=== PATIENT | female | born 1955 | race Caucasian/White ===

== ENCOUNTER 2017-06-08 23:35 | Emergency (ER) | payer BC, OTHER ==
--- NOTE | 2017-06-09 00:46 | EDM.PDOC ---
ED HPI GENERAL MEDICAL PROBLEM - General Chief Complaint: Laceration Stated Complaint: CUT BACK OF HEAD Time Seen by Provider: 06/09/17 00:25 Source of Information: Reports: Patient, Family History Limitations: Reports: Physical Impairment (Dysarthric speech (normal for the patient)) - History of Present Illness INITIAL COMMENTS - FREE TEXT/NARRATIVE: The patient's family state that the patient has a history of ALS, and just moved into their home today. The patient states that around 23:15, she lost her balance while trying to demonstrate that she was able to crouch down, falling backwards, and striking the back of her head on a table. There was no loss of consciousness, and the patient is otherwise uninjured. The patient does not have a PCP. Posterior Head Pain Score (Numeric/FACES): 5 - Related Data Allergies Allergy/AdvReac Type Severity Reaction Status Date / Time No Known Allergies Allergy Verified 06/08/17 23:51 Home Meds: Home Meds Albuterol [Ventolin HFA] 1 puff .XX Q6H PRN 06/08/17 [History] Baclofen 5 mg PO DAILY PRN 06/08/17 [History] Dilofenac 50 mg PO BID PRN 06/08/17 [History] FLUoxetine HCl [Prozac] 20 mg PO DAILY 06/08/17 [History] Furosemide [Lasix] 20 mg PO DAILY 06/08/17 [History] LORazepam [Ativan] 0.5 mg PO TID PRN 06/08/17 [History] Lactulose 10 gm PO TID 06/08/17 [History] Lisinopril 20 mg PO DAILY 06/08/17 [History] Nadolol [Naldol] 10 mg PO DAILY 06/08/17 [History] Prazosin [Minpress] 1 mg PO DAILY 06/08/17 [History] Simvastatin 40 mg PO DAILY 06/08/17 [History] Spironolactone 50 mg PO DAILY 06/08/17 [History] Xyfaxan 550 mg PO DAILY 06/08/17 [History] Past Medical History HEENT History: Reports: Allergic Rhinitis Cardiovascular History: Reports: Arrhythmia (SVT), High Cholesterol, Hypertension Gastrointestinal History: Reports: Cirrhosis Genitourinary History: Reports: Urinary Incontinence Musculoskeletal History: Reports: Arthritis, Fracture (avulsion fracture left ankle) Neurological History: Reports: Other (See Below) (ALS) Psychiatric History: Reports: Anxiety, Depression Endocrine/Metabolic History: Reports: Diabetes, Type II Oncologic (Cancer) History: Reports: Breast (right) - Past Surgical History HEENT Surgical History: Reports: LASIK (bilateral), Other (See Below) (Left stapedectomy) GI Surgical History: Reports: Cholecystectomy Female Surgical History: Reports: Breast Reconstruction (bilateral), Hysterectomy, Mastectomy (bilateral) Neurological Surgical History: Reports: C-Spine (ACDF), Lumbar Spine (L3-S1 laminectomy) Social & Family History - Family History Family Medical History: Noncontributory - Tobacco Use Smoking Status *Q: Never Smoker Second Hand Smoke Exposure: No - Caffeine Use Caffeine Use: Reports: None - Alcohol Use Alcohol Use History: No - Recreational Drug Use Recreational Drug Use: No - Living Situation & Occupation Living situation: Reports: , with Family Occupation: Unemployed ED ROS GENERAL - Review of Systems Review Of Systems: ROS reveals no pertinent complaints other than HPI. ED EXAM, HEAD INJURY - Physical Exam Exam: See Below Exam Limited By: No Limitations General Appearance: Alert, WD/WN, No Apparent Distress Head: Normocephalic, Scalp Lacerations (Approximately 2.5 cm linear partial- thickness laceration to the posterior scalp. Minimal associated swelling.) Eyes: Bilateral Eye: EOMI, Normal Inspection, PERRL Ears: Normal External Exam, Hearing Grossly Normal Nose: Normal Inspection, No Blood Throat/Mouth: Normal Inspection, Normal Lips, Normal Voice, No Airway Compromise Neck: Non-Tender, Full Range of Motion, Normal Alignment, Normal Inspection Respiratory: No Respiratory Distress, Lungs Clear, Normal Breath Sounds, No Accessory Muscle Use Cardiovascular: Normal Peripheral Pulses, Regular Rate, Rhythm, No Gallop, No JVD, No Murmur, No Rub GI/Abdominal Exam: Normal Bowel Sounds, Soft, Non-Tender, No Organomegaly, No Distention, No Abnormal Bruit, No Mass (Female) Exam: Deferred Rectal (Female) Exam: Deferred Back Exam: Full Range of Motion, Normal Inspection, NT Extremities: Normal Inspection, Normal Range of Motion, No Pedal Edema, Normal Capillary Refill Neurologic: Alert, Oriented x 3 Skin: Normal Color, Warm/Dry Course - Vital Signs Last Recorded V/S: Last Vital Signs Temp 36.2 C 04/15/18 23:45 Pulse 96 06/08/17 23:45 Resp 18 06/08/17 23:45 BP 162/75 H 06/08/17 23:45 Pulse Ox 97 06/08/17 23:45 - Re-Assessments/Exams Free Text/Narrative Re-Assessment/Exam: 06/09/17 00:40 The patient sustained an approximately 2.5 cm partial-thickness laceration to the posterior aspect of her scalp. It does not require haris are suturing, and should heal within a few days. The patient is complaining of a headache, but declined an offer for Tylenol or ibuprofen, as she has them at home. I will refer her to Dr. Smith as a PCP. Departure - Departure Time of Disposition: 00:41 Disposition: Home, Self-Care 01 Condition: Good Clinical Impression: Occipital scalp laceration - Discharge Information Instructions: Laceration Care, Adult Referrals: PCP,None [Primary Care Provider] - La Smith [Physician] - Forms: ED Department Discharge Additional Instructions: You were seen in the emergency room after losing your balance, falling backwards , and striking the back of your head tonight. On examination, you have a partial-thickness laceration to the back of your scalp, that did not require sutures or haris. Keep the wound clean with ordinary shampoo and water. We do not recommend you apply antibiotic ointment. Do not put products in your hair until the wound has completely healed. Be aware that the wound will likely weep some bloody fluid for the next day or two. Take [id number] Tylenol or ibuprofen as needed for discomfort. Follow-up with Dr. Smith as a primary care physician. If any other problems, please do not hesitate to return to the ER.
== END 2017-06-09 01:00 | disposition home or self-care (01) ==
LOC: JD.ED 23:35
DX: S01.01XA Laceration without foreign body of scalp, initial encounter (principal); E78.00 Pure hypercholesterolemia, unspecified; I10 Essential (primary) hypertension; F41.9 Anxiety disorder, unspecified; G12.21 Amyotrophic lateral sclerosis; F32.9 Major depressive disorder, single episode, unspecified; E11.9 Type 2 diabetes mellitus without complications; Z90.49 Acquired absence of other specified parts of digestive tract; Z79.899 Other long term (current) drug therapy; Z98.890 Other specified postprocedural states; W18.39XA Other fall on same level, initial encounter; Y92.009 Unspecified place in unspecified non-institutional (private) residence as the place of occurrence of the external cause
CPT/HCPCS: 99283

== ENCOUNTER 2017-08-29 14:22 | Observation (INO) | payer BC, OTHER ==
[2017-08-29] MEDS ORDERED: Sodium Chloride 0.9% 1,000 ML IV ONE (16:39)
[2017-08-29] MEDS ORDERED: Sodium Chloride 0.9% 10 ML Syringe FLUSH PRN (16:39)
[2017-08-29] MEDS ORDERED: Ketorolac 15 MG/ML SDV IVPUSH ONE (17:17)
--- NOTE | 2017-08-29 18:27 | EDM.PDOC ---
ED HPI GENERAL MEDICAL PROBLEM - General Chief Complaint: General Stated Complaint: SENT FROM [facility] Time Seen by Provider: 08/29/17 18:16 Source of Information: Reports: Patient, Jail Records History Limitations: Reports: No Limitations - History of Present Illness INITIAL COMMENTS - FREE TEXT/NARRATIVE: 61-year-old female arrives from [facility] for an emergent PEG tube placement. Patient has a history of ALS, cirrhosis and diabetes. At [facility] today she was given noon meal and had a significant choking episode. [facility] nursing staff contacted the patient's primary care provider, Dr. Betts, who instructed them to bring her to the ER for emergent PEG tube placement. It sounds like she has been working with Dr. Tyler for This PEG placed. Due to conflicts with his schedule and her not feeling well has not been done as of yet. Patient is denying any current pain or any foreign body sensation. She is having difficulty even managing her secretions. Patient has difficulty speaking it is hard to understand. Patient is a DNR, DNI. - Related Data Allergies Allergy/AdvReac Type Severity Reaction Status Date / Time No Known Allergies Allergy Verified 06/08/17 23:51 Home Meds: Home Meds Albuterol [Ventolin HFA] 1 puff .XX Q6H PRN 06/08/17 [History] Baclofen 5 mg PO DAILY PRN 06/08/17 [History] Dilofenac 50 mg PO BID PRN 06/08/17 [History] FLUoxetine HCl [Prozac] 20 mg PO DAILY 06/08/17 [History] Furosemide [Lasix] 20 mg PO DAILY 06/08/17 [History] LORazepam [Ativan] 0.5 mg PO TID PRN 06/08/17 [History] Lactulose 10 gm PO TID 06/08/17 [History] Lisinopril 20 mg PO DAILY 06/08/17 [History] Nadolol [Naldol] 10 mg PO DAILY 06/08/17 [History] Prazosin [Minpress] 1 mg PO DAILY 06/08/17 [History] Simvastatin 40 mg PO DAILY 06/08/17 [History] Spironolactone 50 mg PO DAILY 06/08/17 [History] Xyfaxan 550 mg PO DAILY 06/08/17 [History] Past Medical History HEENT History: Reports: Allergic Rhinitis Cardiovascular History: Reports: Arrhythmia, High Cholesterol, Hypertension, Other (See Below) Other Cardiovascular History: PSVT Respiratory History: Reports: Asthma, Other (See Below) Other Respiratory History: ALS Gastrointestinal History: Reports: Cirrhosis Genitourinary History: Reports: Urinary Incontinence Musculoskeletal History: Reports: Arthritis, Fracture Other Musculoskeletal History: avulsion fracture left ankle Neurological History: Reports: Other (See Below) Other Neuro History: ALS Psychiatric History: Reports: Anxiety, Depression Endocrine/Metabolic History: Reports: Diabetes, Type II Oncologic (Cancer) History: Reports: Breast - Past Surgical History HEENT Surgical History: Reports: LASIK, Other (See Below) GI Surgical History: Reports: Cholecystectomy Female Surgical History: Reports: Breast Reconstruction, Hysterectomy, Mastectomy Neurological Surgical History: Reports: C-Spine, Lumbar Spine Social & Family History - Family History Family Medical History: Noncontributory - Tobacco Use Smoking Status *Q: Never Smoker - Caffeine Use Caffeine Use: Reports: Tea - Recreational Drug Use Recreational Drug Use: No - Living Situation & Occupation Living situation: Reports: , with Family Occupation: Unemployed ED ROS GENERAL - Review of Systems Review Of Systems: See Below HEENT: Reports: Other (difficulty managing secretions; swallowing difficulties) Respiratory: Denies: Shortness of Breath Cardiovascular: Denies: Chest Pain Musculoskeletal: Reports: Neck Pain (chronic) ED EXAM, GENERAL - Physical Exam Exam: See Below Exam Limited By: No Limitations General Appearance: Alert, WD/WN, No Apparent Distress, Thin Eye Exam: Bilateral Eye: Normal Inspection Ears: Normal External Exam Nose: Normal Inspection Throat/Mouth: Normal Inspection Neck: Normal Inspection Respiratory/Chest: No Respiratory Distress, Lungs Clear, Normal Breath Sounds Cardiovascular: Normal Peripheral Pulses, Regular Rate, Rhythm, No Murmur Neurological: Alert, Normal Cognition Psychiatric: Normal Affect, Normal Mood Skin Exam: Warm, Dry, Normal Color Course - Vital Signs Last Recorded V/S: Last Vital Signs Temp 98.2 F 08/29/17 20:43 Pulse 66 08/29/17 20:43 Resp 20 08/29/17 20:43 BP 91/79 08/29/17 20:43 Pulse Ox 96 08/29/17 20:43 - Orders/Labs/Meds Orders: Active Orders 24 hr Category Date Time Status Chest 1V Frontal [CR] Stat Exams 08/29/17 17:12 Taken Sodium Chloride 0.9% [Saline Flush] Med 08/29/17 16:39 Active 10 ml FLUSH ASDIRECTED PRN Peripheral IV Insertion Adult [OM.PC] Routine Oth 08/29/17 16:39 Ordered Medication Orders Acetaminophen (Tylenol) 650 mg RECTAL Q6H PRN PRN Reason: Pain/Fever Enoxaparin Sodium (Lovenox) 40 mg SUBCUT BEDTIME LOLIS Last Admin: 08/29/17 21:58 Dose: Not Given Hydralazine HCl (Apresoline) 20 mg IVPUSH Q6H PRN PRN Reason: Hypertension Dextrose/Sodium Chloride (Dextrose 5%-Normal Saline) 1,000 mls @ 100 mls/hr IV ASDIRECTED LOLIS Last Admin: 08/29/17 21:55 Dose: 100 mls/hr Lorazepam (Ativan) 0.5 mg IVPUSH Q6H PRN PRN Reason: Anxiety Last Admin: 08/29/17 23:17 Dose: 0.5 mg Metoprolol Tartrate (Lopressor) 5 mg IVPUSH Q6H PRN PRN Reason: heart rate>120 Sodium Chloride (Saline Flush) 10 ml FLUSH ASDIRECTED PRN PRN Reason: Keep Vein Open Last Admin: 08/29/17 17:11 Dose: 10 ml Labs: Laboratory Tests 08/29/17 08/29/17 08/29/17 Range/Units 15:56 17:29 17:29 WBC 5.75 (3.98-10.04) K/mm3 RBC 4.07 (3.98-5.22) M/mm3 Hgb 13.4 (11.2-15.7) gm/L Hct 37.3 (34.1-44.9) % MCV 91.6 (79.4-94.8) fl MCH 32.9 H (25.6-32.2) pg MCHC 35.9 H (32.2-35.5) g/dl RDW Std Deviation 45.9 (36.4-46.3) fL Plt Count 83 L (182-369) K/mm3 MPV 9.2 L (9.4-12.3) fl Neut % (Auto) 65.0 (34.0-71.1) % Lymph % (Auto) 26.3 (19.3-51.7) % [place] % (Auto) 6.4 (4.7-12.5) % Eos % (Auto) 1.9 (0.7-5.8) Baso % (Auto) 0.2 (0.1-1.2) % Neut # (Auto) 3.74 (1.56-6.13) K/mm3 Lymph # (Auto) 1.51 (1.18-3.74) K/mm3 [place] # (Auto) 0.37 H (0.24-0.36) K/mm3 Eos # (Auto) 0.11 (0.04-0.36) K/mm3 Baso # (Auto) 0.01 (0.01-0.08) K/mm3 Manual Slide Review Abnormal smear Sodium 135 L (136-145) mEq/L Potassium 4.3 (3.5-5.1) mEq/L Chloride 101 (98-107) mEq/L Carbon Dioxide 26 (21-32) mEq/L Anion Gap 12.3 (5-15) BUN 20 H (7-18) mg/dL Creatinine 0.7 (0.55-1.02) mg/dL Est Cr Clr Drug Dosing 82.07 mL/min Estimated GFR (MDRD) > 60 (>60) mL/min BUN/Creatinine Ratio 28.6 H (14-18) Glucose 160 H (80-115) mg/dL POC Glucose 176 H (80-115) mg/dL Calcium 9.4 (8.5-10.1) mg/dL Total Bilirubin 2.4 H (0.2-1.0) mg/dL AST 75 H (15-37) U/L ALT 95 H (14-59) U/L Alkaline Phosphatase 156 H (46-116) U/L Total Protein 7.4 (6.4-8.2) g/dl Albumin 3.4 (3.4-5.0) g/dl Globulin 4.0 gm/dL Albumin/Globulin Ratio 0.9 L (1-2) 08/29/17 Range/Units 18:37 WBC (3.98-10.04) K/mm3 RBC (3.98-5.22) M/mm3 Hgb (11.2-15.7) gm/L Hct (34.1-44.9) % MCV (79.4-94.8) fl MCH (25.6-32.2) pg MCHC (32.2-35.5) g/dl RDW Std Deviation (36.4-46.3) fL Plt Count (182-369) K/mm3 MPV (9.4-12.3) fl Neut % (Auto) (34.0-71.1) % Lymph % (Auto) (19.3-51.7) % [place] % (Auto) (4.7-12.5) % Eos % (Auto) (0.7-5.8) Baso % (Auto) (0.1-1.2) % Neut # (Auto) (1.56-6.13) K/mm3 Lymph # (Auto) (1.18-3.74) K/mm3 [place] # (Auto) (0.24-0.36) K/mm3 Eos # (Auto) (0.04-0.36) K/mm3 Baso # (Auto) (0.01-0.08) K/mm3 Manual Slide Review Sodium (136-145) mEq/L Potassium (3.5-5.1) mEq/L Chloride (98-107) mEq/L Carbon Dioxide (21-32) mEq/L Anion Gap (5-15) BUN (7-18) mg/dL Creatinine (0.55-1.02) mg/dL Est Cr Clr Drug Dosing mL/min Estimated GFR (MDRD) (>60) mL/min BUN/Creatinine Ratio (14-18) Glucose (80-115) mg/dL POC Glucose 163 H (80-115) mg/dL Calcium (8.5-10.1) mg/dL Total Bilirubin (0.2-1.0) mg/dL AST (15-37) U/L ALT (14-59) U/L Alkaline Phosphatase (46-116) U/L Total Protein (6.4-8.2) g/dl Albumin (3.4-5.0) g/dl Globulin gm/dL Albumin/Globulin Ratio (1-2) Meds: Medications Generic Name Dose Route Start Last Admin Trade Name Freq PRN Reason Stop Dose Admin Acetaminophen 650 mg 08/29/17 21:16 Tylenol RECTAL Q6H PRN Pain/Fever Enoxaparin Sodium 40 mg 08/29/17 21:30 08/29/17 21:58 Lovenox SUBCUT Not Given BEDTIME LOLIS Hydralazine HCl 20 mg 08/29/17 21:14 Apresoline IVPUSH Q6H PRN Hypertension Dextrose/Sodium Chloride 1,000 mls @ 100 mls/hr 08/29/17 21:15 08/29/17 21:55 Dextrose 5%-Normal Saline IV 100 mls/hr ASDIRECTED LOLIS Administration Lorazepam 0.5 mg 08/29/17 22:43 08/29/17 23:17 Ativan IVPUSH 0.5 mg Q6H PRN Administration Anxiety Metoprolol Tartrate 5 mg 08/29/17 21:11 Lopressor IVPUSH Q6H PRN heart rate>120 Sodium Chloride 10 ml 08/29/17 16:39 08/29/17 17:11 Saline Flush FLUSH 10 ml ASDIRECTED PRN Administration Keep Vein Open Discontinued Medications Generic Name Dose Route Start Last Admin Trade Name Freq PRN Reason Stop Dose Admin Sodium Chloride 1,000 mls @ 100 mls/hr 08/29/17 16:39 08/29/17 17:11 Normal Saline IV 08/30/17 02:38 100 mls/hr ONETIME ONE Administration Ketorolac Tromethamine 15 mg 08/29/17 17:17 08/29/17 17:22 Toradol IVPUSH 08/29/17 17:18 15 mg ONETIME ONE Administration - Radiology Interpretation Free Text/Narrative:: chest xray shows no acute intrathrocic process - Re-Assessments/Exams Free Text/Narrative Re-Assessment/Exam: 08/29/17 19:[address] Tyler. He does not appear to be in. Case discussed with Dr. Garcia, surgeon division chair. He prefer that we admitted to the hospitalist. When she is stabilized will potentially put in a PEG tube pending pre-op. Patient's daughter and power of county attorney has presented to the ER. Both Jessica and her daughter would like to proceed with PEG tube placement. case discussed with Dr. Figueroa, hospitalist on. She has comes in the patient in the ED and evaluated her. Will admit her to [facility]. Departure - Departure Time of Disposition: 19:55 Disposition: Refer to Observation Condition: Fair Clinical Impression: ALS (amyotrophic lateral sclerosis), Swallowing dysfunction - Discharge Information - My Orders Last 24 Hours: My Active Orders 08/29/17 16:39 Sodium Chloride 0.9% [Saline Flush] 10 ml FLUSH ASDIRECTED PRN Peripheral IV Insertion Adult [OM.PC] Routine 08/29/17 17:12 Chest 1V Frontal [CR] Stat - Assessment/Plan Last 24 Hours: My Active Orders 08/29/17 16:39 Sodium Chloride 0.9% [Saline Flush] 10 ml FLUSH ASDIRECTED PRN Peripheral IV Insertion Adult [OM.PC] Routine 08/29/17 17:12 Chest 1V Frontal [CR] Stat
--- NOTE | 2017-08-29 21:02 | PCM.HP ---
H&P History of Present Illness - General Date of Service: 08/29/17 Admit Problem/Dx: Admission Diagnosis/Problem Admission Diagnosis/Problem Swallowing problem Source of Information: Family, Provider History Limitations: Reports: No Limitations - History of Present Illness Initial Comments - Free Text/Narative: 61 year old female with PMH of ALS presents with progressive dysphagia; the patient had difficulty eating her lunch on the day of admission. The choking spell precipitated a request for an "emergent PEG". However this is a planned procedure, and in fact an out patient assessment and future date was discussed with a general surgeon. However that was 2 weeks ago, unfortunately the procedure was not performed. The patient can no longer eat or drink with confidence. She is a DNR, not a DNI. The procedure will be arranged as appropriate. She will be admitted to [facility] floor. A swallow evaluation formally will be requested. She currently is NPO. Onset of Symptoms: Reports: Gradual Symptom Onset Date: 08/08/17 Duration of Symptoms: Reports: Week(s):, Getting Worse Location: Reports: Generalized Quality: Reports: Same as Previous Episode Severity: Moderate Improves with: Reports: None Worsens with: Reports: Eating Associated Symptoms: Reports: Cough, Malaise, Nausea/Vomiting, Weakness - Related Data Allergies/Adverse Reactions: Allergies Allergy/AdvReac Type Severity Reaction Status Date / Time No Known Allergies Allergy Verified 08/30/17 01:25 Home Medications: Home Meds Albuterol [Ventolin HFA] 90 mcg INH QID PRN 06/08/17 [History] Baclofen 10 mg PO TID PRN 06/08/17 [History] Dilofenac 50 mg PO BID PRN 06/08/17 [History] Furosemide [Lasix] 20 mg PO DAILY 06/08/17 [History] Lactulose 30 ml PO DAILY 06/08/17 [History] Lisinopril 20 mg PO DAILY 06/08/17 [History] Nadolol [Naldol] 10 mg PO DAILY 06/08/17 [History] Spironolactone 50 mg PO DAILY 06/08/17 [History] Hyoscyamine Sulfate [Levsin-Sl] 0.125 mg PO Q4H PRN 08/30/17 [History] Insulin Aspart [NovoLOG] See Protocol TID PRN 08/30/17 [History] Insulin Glarg,Human.Rec.Analog [Lantus Solostar] 10 units SQ TID 08/30/17 [ History] Insulin Glargine,Hum.Rec.Anlog [Lantus Solostar] 30 units SQ BID 08/30/17 [ History] Ondansetron HCl [Zofran] 4 mg PO Q6H PRN 08/30/17 [History] Past Medical History HEENT History: Reports: Allergic Rhinitis Cardiovascular History: Reports: Arrhythmia, High Cholesterol, Hypertension, Other (See Below) Other Cardiovascular History: PSVT Respiratory History: Reports: Asthma, Other (See Below) Other Respiratory History: ALS Gastrointestinal History: Reports: Cirrhosis Genitourinary History: Reports: Urinary Incontinence Musculoskeletal History: Reports: Arthritis, Fracture Other Musculoskeletal History: avulsion fracture left ankle Neurological History: Reports: Other (See Below) Other Neuro History: ALS Psychiatric History: Reports: Anxiety, Depression Endocrine/Metabolic History: Reports: Diabetes, Type II Oncologic (Cancer) History: Reports: Breast - Past Surgical History HEENT Surgical History: Reports: LASIK, Other (See Below) GI Surgical History: Reports: Cholecystectomy Female Surgical History: Reports: Breast Reconstruction, Hysterectomy, Mastectomy Neurological Surgical History: Reports: C-Spine, Lumbar Spine Social & Family History - Family History Family Medical History: Noncontributory - Tobacco Use Smoking Status *Q: Never Smoker - Caffeine Use Caffeine Use: Reports: Tea - Recreational Drug Use Recreational Drug Use: No - Living Situation & Occupation Living situation: Reports: , with Family Occupation: Unemployed H&P Review of Systems - Review of Systems: Review Of Systems: See Below General: Reports: Malaise, Weakness HEENT: Reports: No Symptoms Pulmonary: Reports: No Symptoms Cardiovascular: Reports: No Symptoms Gastrointestinal: Reports: Other (dysphagia) Genitourinary: Reports: No Symptoms Musculoskeletal: Reports: No Symptoms Skin: Reports: No Symptoms Psychiatric: Reports: No Symptoms Neurological: Reports: No Symptoms Hematologic/Lymphatic: Reports: No Symptoms Immunologic: Reports: No Symptoms Exam - Exam Exam: See Below - Vital Signs Vital Signs: Last Vital Signs Temp 37.1 C 08/29/17 14:38 Pulse 81 08/29/17 14:38 Resp 20 08/29/17 14:38 BP 111/49 L 08/29/17 14:38 Pulse Ox 94 L 08/29/17 14:38 Weight: 67.585 kg - Exam Quality Assessment: Supplemental Oxygen, DVT Prophylaxis (refused) General: Alert, Oriented, Cooperative HEENT: Conjunctiva Clear, Nares Patent, Normal Nasal Septum, Pupils Equal, Pupils Reactive, PERRLA Neck: Trachea Midline Lungs: Normal Respiratory Effort, Decreased Breath Sounds, Rhonchi Cardiovascular: Regular Rate, Regular Rhythm GI/Abdominal Exam: Normal Bowel Sounds, Soft, Non-Tender, No Organomegaly, No Distention (Female) Exam: Deferred Rectal (Female) Exam: Deferred Back Exam: Normal Inspection Extremities: Normal Inspection, Normal Range of Motion, Non-Tender, Normal Capillary Refill Skin: Warm Neurological: Cranial Nerves Intact Neuro Extensive - Mental Status: Alert, Oriented x3 Neuro Extensive - Motor, Sensory, Reflexes: CN II-XII Intact Psychiatric: Alert, Depressed - Patient Data Lab Results Last 24 hrs: Laboratory Results - last 24 hr 08/29/17 08/29/17 08/29/17 Range/Units 15:56 17:29 17:29 WBC 5.75 (3.98-10.04) K/mm3 RBC 4.07 (3.98-5.22) M/mm3 Hgb 13.4 (11.2-15.7) gm/L Hct 37.3 (34.1-44.9) % MCV 91.6 (79.4-94.8) fl MCH 32.9 H (25.6-32.2) pg MCHC 35.9 H (32.2-35.5) g/dl RDW Std Deviation 45.9 (36.4-46.3) fL Plt Count 83 L (182-369) K/mm3 MPV 9.2 L (9.4-12.3) fl Neut % (Auto) 65.0 (34.0-71.1) % Lymph % (Auto) 26.3 (19.3-51.7) % [place] % (Auto) 6.4 (4.7-12.5) % Eos % (Auto) 1.9 (0.7-5.8) Baso % (Auto) 0.2 (0.1-1.2) % Neut # (Auto) 3.74 (1.56-6.13) K/mm3 Lymph # (Auto) 1.51 (1.18-3.74) K/mm3 [place] # (Auto) 0.37 H (0.24-0.36) K/mm3 Eos # (Auto) 0.11 (0.04-0.36) K/mm3 Baso # (Auto) 0.01 (0.01-0.08) K/mm3 Manual Slide Review Abnormal smear Sodium 135 L (136-145) mEq/L Potassium 4.3 (3.5-5.1) mEq/L Chloride 101 (98-107) mEq/L Carbon Dioxide 26 (21-32) mEq/L Anion Gap 12.3 (5-15) BUN 20 H (7-18) mg/dL Creatinine 0.7 (0.55-1.02) mg/dL Est Cr Clr Drug Dosing 82.07 mL/min Estimated GFR (MDRD) > 60 (>60) mL/min BUN/Creatinine Ratio 28.6 H (14-18) Glucose 160 H (80-115) mg/dL POC Glucose 176 H (80-115) mg/dL Calcium 9.4 (8.5-10.1) mg/dL Total Bilirubin 2.4 H (0.2-1.0) mg/dL AST 75 H (15-37) U/L ALT 95 H (14-59) U/L Alkaline Phosphatase 156 H (46-116) U/L Total Protein 7.4 (6.4-8.2) g/dl Albumin 3.4 (3.4-5.0) g/dl Globulin 4.0 gm/dL Albumin/Globulin Ratio 0.9 L (1-2) 08/29/17 Range/Units 18:37 WBC (3.98-10.04) K/mm3 RBC (3.98-5.22) M/mm3 Hgb (11.2-15.7) gm/L Hct (34.1-44.9) % MCV (79.4-94.8) fl MCH (25.6-32.2) pg MCHC (32.2-35.5) g/dl RDW Std Deviation (36.4-46.3) fL Plt Count (182-369) K/mm3 MPV (9.4-12.3) fl Neut % (Auto) (34.0-71.1) % Lymph % (Auto) (19.3-51.7) % [place] % (Auto) (4.7-12.5) % Eos % (Auto) (0.7-5.8) Baso % (Auto) (0.1-1.2) % Neut # (Auto) (1.56-6.13) K/mm3 Lymph # (Auto) (1.18-3.74) K/mm3 [place] # (Auto) (0.24-0.36) K/mm3 Eos # (Auto) (0.04-0.36) K/mm3 Baso # (Auto) (0.01-0.08) K/mm3 Manual Slide Review Sodium (136-145) mEq/L Potassium (3.5-5.1) mEq/L Chloride (98-107) mEq/L Carbon Dioxide (21-32) mEq/L Anion Gap (5-15) BUN (7-18) mg/dL Creatinine (0.55-1.02) mg/dL Est Cr Clr Drug Dosing mL/min Estimated GFR (MDRD) (>60) mL/min BUN/Creatinine Ratio (14-18) Glucose (80-115) mg/dL POC Glucose 163 H (80-115) mg/dL Calcium (8.5-10.1) mg/dL Total Bilirubin (0.2-1.0) mg/dL AST (15-37) U/L ALT (14-59) U/L Alkaline Phosphatase (46-116) U/L Total Protein (6.4-8.2) g/dl Albumin (3.4-5.0) g/dl Globulin gm/dL Albumin/Globulin Ratio (1-2) Result Diagrams: 08/30/17 06:20 08/30/17 06:20 - Problem List (1) Diabetes mellitus SNOMED Code(s): 22326846 ICD Code: E11.9 - TYPE 2 DIABETES MELLITUS WITHOUT COMPLICATIONS Status: Chronic Current Visit: Yes Qualifiers: Diabetes mellitus type: type 2 (2) Depression SNOMED Code(s): 94362162 ICD Code: F32.9 - MAJOR DEPRESSIVE DISORDER, SINGLE EPISODE, UNSPECIFIED Status: Chronic Current Visit: Yes (3) Hypertension SNOMED Code(s): 00998669 ICD Code: I10 - ESSENTIAL (PRIMARY) HYPERTENSION Status: Chronic Current Visit: Yes (4) Hyperlipidemia SNOMED Code(s): 47517526 ICD Code: E78.5 - HYPERLIPIDEMIA, UNSPECIFIED Status: Chronic Current Visit: Yes (5) Cirrhosis SNOMED Code(s): 50667800 ICD Code: K74.60 - UNSPECIFIED CIRRHOSIS OF LIVER Status: Chronic Current Visit: Yes (6) Anxiety SNOMED Code(s): 74194512 ICD Code: F41.9 - ANXIETY DISORDER, UNSPECIFIED Status: Chronic Current Visit: Yes (7) ALS (amyotrophic lateral sclerosis) SNOMED Code(s): 80586058 ICD Code: G12.21 - AMYOTROPHIC LATERAL SCLEROSIS Status: Chronic Current Visit: Yes (8) Swallowing dysfunction SNOMED Code(s): 562425518 ICD Code: R13.10 - DYSPHAGIA, UNSPECIFIED Status: Acute Current Visit: Yes Problem List Initiated/Reviewed/Updated: Yes Orders Last 24hrs: Active Orders 24 hr Category Date Time Status Patient Status [ADT] Routine ADT 08/29/17 19:58 Active Peripheral IV Care [RC] . DIRECTED Care 08/29/17 16:39 Active Chest 1V Frontal [CR] Stat Exams 08/29/17 17:12 Taken Sodium Chloride 0.9% [Normal Saline] 1,000 ml Med 08/29/17 16:39 Active IV ONETIME Sodium Chloride 0.9% [Saline Flush] Med 08/29/17 16:39 Active 10 ml FLUSH ASDIRECTED PRN Peripheral IV Insertion Adult [OM.PC] Routine Oth 08/29/17 16:39 Ordered Medication Orders Sodium Chloride (Normal Saline) 1,000 mls @ 100 mls/hr IV ONETIME ONE Stop: 08/30/17 02:38 Last Admin: 08/29/17 17:11 Dose: 100 mls/hr Sodium Chloride (Saline Flush) 10 ml FLUSH ASDIRECTED PRN PRN Reason: Keep Vein Open Last Admin: 08/29/17 17:11 Dose: 10 ml Assessment/Plan Comment:: Impression: History of ALS with progressive dysphagia Query LLL infiltrate on CXR 08/30/2017, empiric levoquin started Malnutrition with failure to thrive Chronic Diabetes mellitus type 1 HTN HLD History of cirrhosis Anxiety/depression Plan: Gen Surg consult re: PEG, TBA IVF Pain meds Home meds BS q 6H when NPO Swallow evaluation re: dysphagia Dietary consult re: calorie count DVT/GI prophylaxis Consult PT/OT as tolerated.
[2017-08-29] MEDS ORDERED: Metoprolol Tartrate 5 MG/5 ML SDV IVPUSH PRN (21:11)
[2017-08-29] MEDS ORDERED: hydrALAZINE 20 MG/ML SDV IVPUSH PRN (21:14)
[2017-08-29] MEDS ORDERED: Acetaminophen 650 MG Supp RECTAL PRN (21:16)
[2017-08-29] MEDS: Dextrose 5%-0.9% NaCl 1,000 ML IV SCH (21:55)
[2017-08-29] MEDS: Enoxaparin 40 MG/0.4 ML Syringe SUBCUT SCH (21:58)
[2017-08-29] MEDS: LORazepam 2 MG/ML SDV IVPUSH PRN (23:17)
[2017-08-30] MEDS: Dextrose 5%-0.9% NaCl 1,000 ML IV SCH ×2 (08:10→17:49)
--- NOTE | 2017-08-30 09:53 | PCM.CONS ---
H&P History of Present Illness - General Date of Service: 08/30/17 Admit Problem/Dx: Admission Diagnosis/Problem Admission Diagnosis/Problem Swallowing problem Source of Information: Patient, Provider, RN History Limitations: Reports: No Limitations (Inability to speak but patient can communicate by writing) - History of Present Illness Initial Comments - Free Text/Narative: 61-year-old female with ALS presents with a history of progressive oropharyngeal dysphagia. She is unable to eat solids. And over the past several week she's found it difficult to even eat pured foods. While eating, half of the food bolus refluxes into her nose and at times she aspirates. She was seen by a surgeon in [facility] 2 weeks ago who agreed to place a PEG tube after return from his vacation. Unfortunately she has progressed to the point where she is unable to eat or drink just about anything except for small amounts of apple sauce mixed with cottage cheese. She presented to the emergency room yesterday with severe symptomatic protein calorie malnutrition for feeding tube placement. Her swallowing evaluation performed this morning confirms the oropharyngeal dysphagia. She has eaten some applesauce and pudding throughout the morning. - Related Data Allergies/Adverse Reactions: Allergies Allergy/AdvReac Type Severity Reaction Status Date / Time No Known Allergies Allergy Verified 08/30/17 01:25 Home Medications: Home Meds Albuterol [Ventolin HFA] 90 mcg INH QID PRN 06/08/17 [History] Baclofen 10 mg PO TID PRN 06/08/17 [History] Dilofenac 50 mg PO BID PRN 06/08/17 [History] Furosemide [Lasix] 20 mg PO DAILY 06/08/17 [History] Lactulose 30 ml PO DAILY 06/08/17 [History] Lisinopril 20 mg PO DAILY 06/08/17 [History] Nadolol [Naldol] 10 mg PO DAILY 06/08/17 [History] Spironolactone 50 mg PO DAILY 06/08/17 [History] Hyoscyamine Sulfate [Levsin-Sl] 0.125 mg PO Q4H PRN 08/30/17 [History] Insulin Aspart [NovoLOG] See Protocol TID PRN 08/30/17 [History] Insulin Glarg,Human.Rec.Analog [Lantus Solostar] 10 units SQ TID 08/30/17 [ History] Insulin Glargine,Hum.Rec.Anlog [Lantus Solostar] 30 units SQ BID 08/30/17 [ History] Ondansetron HCl [Zofran] 4 mg PO Q6H PRN 08/30/17 [History] Past Medical History HEENT History: Reports: Allergic Rhinitis Cardiovascular History: Reports: Arrhythmia, High Cholesterol, Hypertension, Other (See Below) Other Cardiovascular History: PSVT Respiratory History: Reports: Asthma, Other (See Below) Other Respiratory History: ALS Gastrointestinal History: Reports: Cirrhosis Genitourinary History: Reports: Urinary Incontinence [employer] History: Reports: Musculoskeletal History: Reports: Arthritis, Fracture Other Musculoskeletal History: avulsion fracture left ankle Neurological History: Reports: Other (See Below) Other Neuro History: ALS Psychiatric History: Reports: Anxiety, Depression Endocrine/Metabolic History: Reports: Diabetes, Type II Oncologic (Cancer) History: Reports: Breast - Infectious Disease History Infectious Disease History: Reports: Chicken Pox, Influenza, Measles - Past Surgical History HEENT Surgical History: Reports: LASIK, Other (See Below) GI Surgical History: Reports: Cholecystectomy Female Surgical History: Reports: Breast Reconstruction, Hysterectomy, Mastectomy Neurological Surgical History: Reports: C-Spine, Lumbar Spine Social & Family History - Family History Family Medical History: Noncontributory - Tobacco Use Smoking Status *Q: Never Smoker Second Hand Smoke Exposure: No - Caffeine Use Caffeine Use: Reports: Tea Other Caffeine Use: pt reports that she used to drink one cup of coffee/day but now is not going to be able to she reports - Recreational Drug Use Recreational Drug Use: No - Living Situation & Occupation Living situation: Reports: , with Family Occupation: Unemployed H&P Review of Systems - Review of Systems: Review Of Systems: ROS reveals no pertinent complaints other than HPI. Exam - Exam Exam: See Below - Vital Signs Vital Signs: Last Vital Signs Temp 36.7 C 08/30/17 07:55 Pulse 62 08/30/17 07:55 Resp 16 08/30/17 07:55 BP 91/33 L 08/30/17 08:12 Pulse Ox 96 08/30/17 07:55 Weight: 66.281 kg - Exam General: Alert, Oriented, Cooperative HEENT: EOMI, Hearing Intact Neck: Supple, Trachea Midline Lungs: Clear to Auscultation, Normal Respiratory Effort Cardiovascular: Regular Rate, Regular Rhythm, Normal S1, Normal S2 GI/Abdominal Exam: Soft, Non-Tender, Hepatomegaly, Other (Well-healed abdominoplasty incision) (Female) Exam: Deferred Rectal (Female) Exam: Deferred Extremities: Non-Tender Skin: Warm, Dry Neuro Extensive - Mental Status: Alert, Normal Mood/Affect, Normal Cognition - Patient Data Lab Results Last 24 hrs: Laboratory Results - last 24 hr 08/29/17 08/29/17 08/29/17 Range/Units 15:56 17:29 17:29 WBC 5.75 (3.98-10.04) K/mm3 RBC 4.07 (3.98-5.22) M/mm3 Hgb 13.4 (11.2-15.7) gm/L Hct 37.3 (34.1-44.9) % MCV 91.6 (79.4-94.8) fl MCH 32.9 H (25.6-32.2) pg MCHC 35.9 H (32.2-35.5) g/dl RDW Std Deviation 45.9 (36.4-46.3) fL Plt Count 83 L (182-369) K/mm3 MPV 9.2 L (9.4-12.3) fl Neut % (Auto) 65.0 (34.0-71.1) % Lymph % (Auto) 26.3 (19.3-51.7) % [place] % (Auto) 6.4 (4.7-12.5) % Eos % (Auto) 1.9 (0.7-5.8) Baso % (Auto) 0.2 (0.1-1.2) % Neut # (Auto) 3.74 (1.56-6.13) K/mm3 Lymph # (Auto) 1.51 (1.18-3.74) K/mm3 [place] # (Auto) 0.37 H (0.24-0.36) K/mm3 Eos # (Auto) 0.11 (0.04-0.36) K/mm3 Baso # (Auto) 0.01 (0.01-0.08) K/mm3 Manual Slide Review Abnormal smear PT (9.5-12.1) SECONDS INR APTT (24-31) SECONDS Sodium 135 L (136-145) mEq/L Potassium 4.3 (3.5-5.1) mEq/L Chloride 101 (98-107) mEq/L Carbon Dioxide 26 (21-32) mEq/L Anion Gap 12.3 (5-15) BUN 20 H (7-18) mg/dL Creatinine 0.7 (0.55-1.02) mg/dL Est Cr Clr Drug Dosing 82.07 mL/min Estimated GFR (MDRD) > 60 (>60) mL/min BUN/Creatinine Ratio 28.6 H (14-18) Glucose 160 H (80-115) mg/dL POC Glucose 176 H (80-115) mg/dL Lactic Acid (0.4-2.0) mmol/L Calcium 9.4 (8.5-10.1) mg/dL Magnesium (1.8-2.4) mg/dl Total Bilirubin 2.4 H (0.2-1.0) mg/dL AST 75 H (15-37) U/L ALT 95 H (14-59) U/L Alkaline Phosphatase 156 H (46-116) U/L C-Reactive Protein (<1.0) mg/dL Total Protein 7.4 (6.4-8.2) g/dl Albumin 3.4 (3.4-5.0) g/dl Globulin 4.0 gm/dL Albumin/Globulin Ratio 0.9 L (1-2) MRSA (PCR) 08/29/17 08/29/17 08/29/17 Range/Units 18:37 20:16 21:50 WBC (3.98-10.04) K/mm3 RBC (3.98-5.22) M/mm3 Hgb (11.2-15.7) gm/L Hct (34.1-44.9) % MCV (79.4-94.8) fl MCH (25.6-32.2) pg MCHC (32.2-35.5) g/dl RDW Std Deviation (36.4-46.3) fL Plt Count (182-369) K/mm3 MPV (9.4-12.3) fl Neut % (Auto) (34.0-71.1) % Lymph % (Auto) (19.3-51.7) % [place] % (Auto) (4.7-12.5) % Eos % (Auto) (0.7-5.8) Baso % (Auto) (0.1-1.2) % Neut # (Auto) (1.56-6.13) K/mm3 Lymph # (Auto) (1.18-3.74) K/mm3 [place] # (Auto) (0.24-0.36) K/mm3 Eos # (Auto) (0.04-0.36) K/mm3 Baso # (Auto) (0.01-0.08) K/mm3 Manual Slide Review PT (9.5-12.1) SECONDS INR APTT (24-31) SECONDS Sodium (136-145) mEq/L Potassium (3.5-5.1) mEq/L Chloride (98-107) mEq/L Carbon Dioxide (21-32) mEq/L Anion Gap (5-15) BUN (7-18) mg/dL Creatinine (0.55-1.02) mg/dL Est Cr Clr Drug Dosing mL/min Estimated GFR (MDRD) (>60) mL/min BUN/Creatinine Ratio (14-18) Glucose (80-115) mg/dL POC Glucose 163 H 148 H 140 H (80-115) mg/dL Lactic Acid (0.4-2.0) mmol/L Calcium (8.5-10.1) mg/dL Magnesium (1.8-2.4) mg/dl Total Bilirubin (0.2-1.0) mg/dL AST (15-37) U/L ALT (14-59) U/L Alkaline Phosphatase (46-116) U/L C-Reactive Protein (<1.0) mg/dL Total Protein (6.4-8.2) g/dl Albumin (3.4-5.0) g/dl Globulin gm/dL Albumin/Globulin Ratio (1-2) MRSA (PCR) 08/30/17 08/30/17 08/30/17 Range/Units 05:50 05:52 06:20 WBC 3.92 L (3.98-10.04) K/mm3 RBC 3.63 L (3.98-5.22) M/mm3 Hgb 11.6 (11.2-15.7) gm/L Hct 33.8 L (34.1-44.9) % MCV 93.1 (79.4-94.8) fl MCH 32.0 (25.6-32.2) pg MCHC 34.3 (32.2-35.5) g/dl RDW Std Deviation 45.8 (36.4-46.3) fL Plt Count 76 L (182-369) K/mm3 MPV 8.9 L (9.4-12.3) fl Neut % (Auto) 45.8 (34.0-71.1) % Lymph % (Auto) 42.9 (19.3-51.7) % [place] % (Auto) 8.4 (4.7-12.5) % Eos % (Auto) 2.6 (0.7-5.8) Baso % (Auto) 0.3 (0.1-1.2) % Neut # (Auto) 1.80 (1.56-6.13) K/mm3 Lymph # (Auto) 1.68 (1.18-3.74) K/mm3 [place] # (Auto) 0.33 (0.24-0.36) K/mm3 Eos # (Auto) 0.10 (0.04-0.36) K/mm3 Baso # (Auto) 0.01 (0.01-0.08) K/mm3 Manual Slide Review Abnormal smear PT (9.5-12.1) SECONDS INR APTT (24-31) SECONDS Sodium (136-145) mEq/L Potassium (3.5-5.1) mEq/L Chloride (98-107) mEq/L Carbon Dioxide (21-32) mEq/L Anion Gap (5-15) BUN (7-18) mg/dL Creatinine (0.55-1.02) mg/dL Est Cr Clr Drug Dosing mL/min Estimated GFR (MDRD) (>60) mL/min BUN/Creatinine Ratio (14-18) Glucose (80-115) mg/dL POC Glucose 183 H (80-115) mg/dL Lactic Acid (0.4-2.0) mmol/L Calcium (8.5-10.1) mg/dL Magnesium (1.8-2.4) mg/dl Total Bilirubin (0.2-1.0) mg/dL AST (15-37) U/L ALT (14-59) U/L Alkaline Phosphatase (46-116) U/L C-Reactive Protein (<1.0) mg/dL Total Protein (6.4-8.2) g/dl Albumin (3.4-5.0) g/dl Globulin gm/dL Albumin/Globulin Ratio (1-2) MRSA (PCR) Negative 08/30/17 08/30/17 08/30/17 Range/Units 06:20 06:20 06:20 WBC (3.98-10.04) K/mm3 RBC (3.98-5.22) M/mm3 Hgb (11.2-15.7) gm/L Hct (34.1-44.9) % MCV (79.4-94.8) fl MCH (25.6-32.2) pg MCHC (32.2-35.5) g/dl RDW Std Deviation (36.4-46.3) fL Plt Count (182-369) K/mm3 MPV (9.4-12.3) fl Neut % (Auto) (34.0-71.1) % Lymph % (Auto) (19.3-51.7) % [place] % (Auto) (4.7-12.5) % Eos % (Auto) (0.7-5.8) Baso % (Auto) (0.1-1.2) % Neut # (Auto) (1.56-6.13) K/mm3 Lymph # (Auto) (1.18-3.74) K/mm3 [place] # (Auto) (0.24-0.36) K/mm3 Eos # (Auto) (0.04-0.36) K/mm3 Baso # (Auto) (0.01-0.08) K/mm3 Manual Slide Review PT 12.8 H (9.5-12.1) SECONDS INR 1.18 APTT 26 (24-31) SECONDS Sodium 141 (136-145) mEq/L Potassium 4.2 (3.5-5.1) mEq/L Chloride 107 (98-107) mEq/L Carbon Dioxide 25 (21-32) mEq/L Anion Gap 13.2 (5-15) BUN 21 H (7-18) mg/dL Creatinine 0.7 (0.55-1.02) mg/dL Est Cr Clr Drug Dosing 82.07 mL/min Estimated GFR (MDRD) > 60 (>60) mL/min BUN/Creatinine Ratio 30.0 H (14-18) Glucose 184 H (80-115) mg/dL POC Glucose (80-115) mg/dL Lactic Acid 1.3 (0.4-2.0) mmol/L Calcium 8.7 (8.5-10.1) mg/dL Magnesium 1.3 L (1.8-2.4) mg/dl Total Bilirubin (0.2-1.0) mg/dL AST (15-37) U/L ALT (14-59) U/L Alkaline Phosphatase (46-116) U/L C-Reactive Protein 0.2 (<1.0) mg/dL Total Protein (6.4-8.2) g/dl Albumin (3.4-5.0) g/dl Globulin gm/dL Albumin/Globulin Ratio (1-2) MRSA (PCR) Result Diagrams: 08/30/17 06:20 08/30/17 06:20 Consult PN Assessment/Plan Procedures: Procedures EMERGENCY DEPT VISIT (06/08/17) (1) Swallowing dysfunction SNOMED Code(s): 714648009 Code(s): R13.10 - DYSPHAGIA, UNSPECIFIED Current Visit: Yes Assessment:: Secondary oropharyngeal dysphagia. Progressive failure to thrive. Would benefit from protein calorie replacement. Problem List Initiated/Reviewed/Updated: Yes My Orders Last 24 Hours: Preoperative evaluation and stabilization by the hospitalist followed by PEG tube placement in the morning.
[2017-08-30] MEDS ORDERED: Magnesium Sulfate/Water 4 GM in Premix Bag 1 BAG IV ONE (11:30)
[2017-08-30] MEDS ORDERED: 50% Dextrose in Water 50 ML Syringe IVPUSH PRN (11:48)
[2017-08-30] MEDS ORDERED: Hyoscyamine 0.125 MG Tab.SL PO PRN (11:49)
[2017-08-30] MEDS ORDERED: Ondansetron 4 MG Tab.DIS PO PRN (12:00)
[2017-08-30] MEDS ORDERED: Albuterol/Ipratropium 3.0-0.5 MG/3 ML Neb Soln NEB PRN (16:09)
--- NOTE | 2017-08-30 16:12 | PCM.PREANE ---
Preanesthetic Assessment - Anesthesia/Transfusion/Family Hx Anesthesia History: Prior Anesthesia Without Reaction Family History of Anesthesia Reaction: No Transfusion History: No Prior Transfusion(s) Intubation History: Unknown - Review of Systems General: No Symptoms (Patient c/o of getting HOT.), Weakness, Fatigue, Malaise Pulmonary: No Symptoms (Asthma) Cardiovascular: No Symptoms (History of PSVT/HTN/ on lasix and diuretics for ascites due to HA.), Palpitations, Lightheadedness Gastrointestinal: No Symptoms (GERD), Decreased Appetite, Difficulty Swallowing Neurological: No Symptoms (History of ALS: with inability to speak but communicates with writing), Headache (Migraine headaches from head injury in 2002), Tingling (All four extremities noted), Trouble Speaking, Difficulty Walking, Weakness, Other (ALS diagnosed Feb 2017, with inability to speak noted , patient communicates by writing.) Other: Reports: Easy Bleeding, Easy Bruising, Diabetes (IDDM), Liver Problems ( Elevated liver enzymes noted, HA with ascites noted), Sinus Problem (Chronic rhinitis), Neck Pain, Depression, Anxiety - Physical Assessment NPO Status Date: 08/30/17 NPO Status Time: 08:00 Pulse: 72 O2 Sat by Pulse Oximetry: 95 Respiratory Rate: 16 Blood Pressure: 107/73 Temperature: 37.2 C Vital Signs: Last Vital Signs Temp 37.2 C 08/30/17 14:31 Pulse 72 08/30/17 14:31 Resp 16 08/30/17 14:31 BP 107/73 08/30/17 14:31 Pulse Ox 95 08/30/17 14:31 Height: 1.7 m Weight: 66.281 kg ASA Class: 3E Mental Status: Alert & Oriented x3 Airway Class: Mallampati = 2 Dentition: Reports: Normal Dentition, Caries Thyro-Mental Finger Breadths: 3 Mouth Opening Finger Breadths: 3 ROM/Head Extension: Full Lungs: Clear to Auscultation, Normal Respiratory Effort, Decreased Breath Sounds (inability to take a maximal deep breath due to ALS) Cardiovascular: Regular Rate, Regular Rhythm, No Murmurs - Lab Values: Laboratory Last Values WBC 3.92 K/mm3 (3.98-10.04) L 08/30/17 06:20 RBC 3.63 M/mm3 (3.98-5.22) L 08/30/17 06:20 Hgb 11.6 gm/L (11.2-15.7) 08/30/17 06:20 Hct 33.8 % (34.1-44.9) L 08/30/17 06:20 MCV 93.1 fl (79.4-94.8) 08/30/17 06:20 MCH 32.0 pg (25.6-32.2) 08/30/17 06:20 MCHC 34.3 g/dl (32.2-35.5) 08/30/17 06:20 RDW Std Deviation 45.8 fL (36.4-46.3) 08/30/17 06:20 Plt Count 76 K/mm3 (182-369) L 08/30/17 06:20 MPV 8.9 fl (9.4-12.3) L 08/30/17 06:20 Neut % (Auto) 45.8 % (34.0-71.1) 08/30/17 06:20 Lymph % (Auto) 42.9 % (19.3-51.7) 08/30/17 06:20 [place] % (Auto) 8.4 % (4.7-12.5) 08/30/17 06:20 Eos % (Auto) 2.6 (0.7-5.8) 08/30/17 06:20 Baso % (Auto) 0.3 % (0.1-1.2) 08/30/17 06:20 Neut # (Auto) 1.80 K/mm3 (1.56-6.13) 08/30/17 06:20 Lymph # (Auto) 1.68 K/mm3 (1.18-3.74) 08/30/17 06:20 [place] # (Auto) 0.33 K/mm3 (0.24-0.36) 08/30/17 06:20 Eos # (Auto) 0.10 K/mm3 (0.04-0.36) 08/30/17 06:20 Baso # (Auto) 0.01 K/mm3 (0.01-0.08) 08/30/17 06:20 Manual Slide Review Abnormal smear 08/30/17 06:20 PT 12.8 SECONDS (9.5-12.1) H 08/30/17 06:20 INR 1.18 08/30/17 06:20 APTT 26 SECONDS (24-31) 08/30/17 06:20 Sodium 141 mEq/L (136-145) 08/30/17 06:20 Potassium 4.2 mEq/L (3.5-5.1) 08/30/17 06:20 Chloride 107 mEq/L (98-107) 08/30/17 06:20 Carbon Dioxide 25 mEq/L (21-32) 08/30/17 06:20 Anion Gap 13.2 (5-15) 08/30/17 06:20 BUN 21 mg/dL (7-18) H 08/30/17 06:20 Creatinine 0.7 mg/dL (0.55-1.02) 08/30/17 06:20 Est Cr Clr Drug Dosing 82.07 mL/min 08/30/17 06:20 Estimated GFR (MDRD) > 60 mL/min (>60) 08/30/17 06:20 BUN/Creatinine Ratio 30.0 (14-18) H 08/30/17 06:20 Glucose 184 mg/dL (80-115) H 08/30/17 06:20 POC Glucose 203 mg/dL (80-115) H 08/30/17 11:33 Lactic Acid 1.3 mmol/L (0.4-2.0) 08/30/17 06:20 Calcium 8.7 mg/dL (8.5-10.1) 08/30/17 06:20 Magnesium 1.3 mg/dl (1.8-2.4) L 08/30/17 06:20 Total Bilirubin 2.4 mg/dL (0.2-1.0) H 08/29/17 17:29 AST 75 U/L (15-37) H 08/29/17 17:29 ALT 95 U/L (14-59) H 08/29/17 17:29 Alkaline Phosphatase 156 U/L (46-116) H 08/29/17 17:29 C-Reactive Protein 0.2 mg/dL (<1.0) 08/30/17 06:20 Total Protein 7.4 g/dl (6.4-8.2) 08/29/17 17:29 Albumin 3.4 g/dl (3.4-5.0) 08/29/17 17:29 Globulin 4.0 gm/dL 08/29/17 17:29 Albumin/Globulin Ratio 0.9 (1-2) L 08/29/17 17:29 MRSA (PCR) Negative 08/30/17 05:50 Above labs reviewed and noted and within acceptable ranges to proceed with PEG TUBE placement. - Allergies Allergies/Adverse Reactions: Allergies Allergy/AdvReac Type Severity Reaction Status Date / Time No Known Allergies Allergy Verified 08/30/17 01:25 - Anesthesia Plan Pre-Op Medication Ordered: None - Acknowledgements Anesthesia Type Planned: MAC Pt an Appropriate Candidate for the Planned Anesthesia: Yes Alternatives and Risks of Anesthesia Discussed w Pt/Guardian: Yes Pt/Guardian Understands and Agrees with Anesthesia Plan: Yes PreAnesthesia Questionnaire HEENT History: Reports: Allergic Rhinitis Cardiovascular History: Reports: Arrhythmia, High Cholesterol, Hypertension, Other (See Below) Other Cardiovascular History: PSVT Respiratory History: Reports: Asthma, Other (See Below) Other Respiratory History: ALS Gastrointestinal History: Reports: Cirrhosis Genitourinary History: Reports: Urinary Incontinence [employer] History: Reports: Musculoskeletal History: Reports: Arthritis, Fracture Other Musculoskeletal History: avulsion fracture left ankle Neurological History: Reports: Other (See Below) Other Neuro History: ALS Psychiatric History: Reports: Anxiety, Depression Endocrine/Metabolic History: Reports: Diabetes, Type II Oncologic (Cancer) History: Reports: Breast - Infectious Disease History Infectious Disease History: Reports: Chicken Pox, Influenza, Measles - Past Surgical History HEENT Surgical History: Reports: LASIK, Other (See Below) GI Surgical History: Reports: Cholecystectomy Female Surgical History: Reports: Breast Reconstruction, Hysterectomy, Mastectomy Neurological Surgical History: Reports: C-Spine, Lumbar Spine - SUBSTANCE USE Smoking Status *Q: Never Smoker Second Hand Smoke Exposure: No Recreational Drug Use History: No - HOME MEDS Home Medications: Home Meds Albuterol [Ventolin HFA] 90 mcg INH QID PRN 06/08/17 [History] Baclofen 10 mg PO TID PRN 06/08/17 [History] Dilofenac 50 mg PO BID PRN 06/08/17 [History] Furosemide [Lasix] 20 mg PO DAILY 06/08/17 [History] Lactulose 30 ml PO DAILY 06/08/17 [History] Lisinopril 20 mg PO DAILY 06/08/17 [History] Nadolol [Naldol] 10 mg PO DAILY 06/08/17 [History] Spironolactone 50 mg PO DAILY 06/08/17 [History] Hyoscyamine Sulfate [Levsin-Sl] 0.125 mg PO Q4H PRN 08/30/17 [History] Insulin Aspart [NovoLOG] See Protocol TID PRN 08/30/17 [History] Insulin Glarg,Human.Rec.Analog [Lantus Solostar] 10 units SQ TID 08/30/17 [ History] Insulin Glargine,Hum.Rec.Anlog [Lantus Solostar] 30 units SQ BID 08/30/17 [ History] Ondansetron HCl [Zofran] 4 mg PO Q6H PRN 08/30/17 [History] - CURRENT (IN HOUSE) MEDS Current Meds: Current Medications Acetaminophen (Tylenol) 650 mg RECTAL Q6H PRN PRN Reason: Pain/Fever Dextrose/Water (Dextrose 50% In Water) 50 ml IVPUSH ASDIRECTED PRN PRN Reason: Hypoglycemia Enoxaparin Sodium (Lovenox) 40 mg SUBCUT BEDTIME LOLIS Last Admin: 08/29/17 21:58 Dose: Not Given Hydralazine HCl (Apresoline) 20 mg IVPUSH Q6H PRN PRN Reason: Hypertension Hyoscyamine (Hyomax-Sl) 0.125 mg PO Q4H PRN PRN Reason: Other Dextrose/Sodium Chloride (Dextrose 5%-Normal Saline) 1,000 mls @ 100 mls/hr IV ASDIRECTED LOLIS Last Admin: 08/30/17 08:10 Dose: 100 mls/hr Levofloxacin/Dextrose 750 mg/ (Premix) 150 mls @ 100 mls/hr IV Q24H [facility] Insulin Aspart (Novolog) 0 unit SUBCUT QIDACANDBED LOLIS; Protocol Lorazepam (Ativan) 0.5 mg IVPUSH Q6H PRN PRN Reason: Anxiety Last Admin: 08/29/17 23:17 Dose: 0.5 mg Metoprolol Tartrate (Lopressor) 5 mg IVPUSH Q6H PRN PRN Reason: heart rate>120 Ondansetron HCl (Zofran Odt) 4 mg PO Q6H PRN PRN Reason: NAUSEA Sodium Chloride (Saline Flush) 10 ml FLUSH ASDIRECTED PRN PRN Reason: Keep Vein Open Last Admin: 08/29/17 17:11 Dose: 10 ml Discontinued Medications Sodium Chloride (Normal Saline) 1,000 mls @ 100 mls/hr IV ONETIME ONE Stop: 08/30/17 02:38 Last Admin: 08/29/17 17:11 Dose: 100 mls/hr Magnesium Sulfate 4 gm/ Premix 100 mls @ 300 mls/hr IV ONETIME ONE Stop: 08/30/17 11:31 Magnesium Sulfate/Dextrose 1 (gm/ Premix) 100 mls @ 100 mls/hr IV Q1H LOLIS Stop: 08/30/17 15:29 Last Admin: 08/30/17 15:02 Dose: 100 mls/hr Ketorolac Tromethamine (Toradol) 15 mg IVPUSH ONETIME ONE Stop: 08/29/17 17:18 Last Admin: 08/29/17 17:22 Dose: 15 mg
[2017-08-30] MEDS ORDERED: Levofloxacin/Dextrose 5%-Water 750 MG in Premix Bag 1 BAG IV SCH (16:15)
--- NOTE | 2017-08-30 16:41 | PCM.PN ---
- General Info Date of Service: 08/30/17 Functional Status: Reports: Urinating - Review of Systems General: Reports: Weakness, Fatigue HEENT: Reports: No Symptoms Pulmonary: Reports: Shortness of Breath Cardiovascular: Reports: No Symptoms Gastrointestinal: Reports: No Symptoms Genitourinary: Reports: No Symptoms Musculoskeletal: Reports: No Symptoms Skin: Reports: No Symptoms Neurological: Reports: No Symptoms Psychiatric: Reports: No Symptoms - Patient Data Vitals - Most Recent: Last Vital Signs Temp 37.2 C 08/30/17 16:40 Pulse 72 08/30/17 16:40 Resp 16 08/30/17 16:40 BP 107/73 08/30/17 16:40 Pulse Ox 95 08/30/17 16:40 Weight - Most Recent: 66.281 kg I&O - Last 24 Hours: Intake & Output 08/30/17 08/30/17 08/30/17 06:59 14:59 22:59 Intake Total 868 0 1500 Output Total 350 200 Balance 518 -200 1500 Lab Results Last 24 Hours: Laboratory Results - last 24 hr 08/29/17 08/29/17 08/29/17 Range/Units 17:29 17:29 18:37 WBC 5.75 (3.98-10.04) K/mm3 RBC 4.07 (3.98-5.22) M/mm3 Hgb 13.4 (11.2-15.7) gm/L Hct 37.3 (34.1-44.9) % MCV 91.6 (79.4-94.8) fl MCH 32.9 H (25.6-32.2) pg MCHC 35.9 H (32.2-35.5) g/dl RDW Std Deviation 45.9 (36.4-46.3) fL Plt Count 83 L (182-369) K/mm3 MPV 9.2 L (9.4-12.3) fl Neut % (Auto) 65.0 (34.0-71.1) % Lymph % (Auto) 26.3 (19.3-51.7) % [place] % (Auto) 6.4 (4.7-12.5) % Eos % (Auto) 1.9 (0.7-5.8) Baso % (Auto) 0.2 (0.1-1.2) % Neut # (Auto) 3.74 (1.56-6.13) K/mm3 Lymph # (Auto) 1.51 (1.18-3.74) K/mm3 [place] # (Auto) 0.37 H (0.24-0.36) K/mm3 Eos # (Auto) 0.11 (0.04-0.36) K/mm3 Baso # (Auto) 0.01 (0.01-0.08) K/mm3 Manual Slide Review Abnormal smear PT (9.5-12.1) SECONDS INR APTT (24-31) SECONDS Sodium 135 L (136-145) mEq/L Potassium 4.3 (3.5-5.1) mEq/L Chloride 101 (98-107) mEq/L Carbon Dioxide 26 (21-32) mEq/L Anion Gap 12.3 (5-15) BUN 20 H (7-18) mg/dL Creatinine 0.7 (0.55-1.02) mg/dL Est Cr Clr Drug Dosing 82.07 mL/min Estimated GFR (MDRD) > 60 (>60) mL/min BUN/Creatinine Ratio 28.6 H (14-18) Glucose 160 H (80-115) mg/dL POC Glucose 163 H (80-115) mg/dL Lactic Acid (0.4-2.0) mmol/L Calcium 9.4 (8.5-10.1) mg/dL Magnesium (1.8-2.4) mg/dl Total Bilirubin 2.4 H (0.2-1.0) mg/dL AST 75 H (15-37) U/L ALT 95 H (14-59) U/L Alkaline Phosphatase 156 H (46-116) U/L C-Reactive Protein (<1.0) mg/dL Total Protein 7.4 (6.4-8.2) g/dl Albumin 3.4 (3.4-5.0) g/dl Globulin 4.0 gm/dL Albumin/Globulin Ratio 0.9 L (1-2) MRSA (PCR) 08/29/17 08/29/17 08/30/17 Range/Units 20:16 21:50 05:50 WBC (3.98-10.04) K/mm3 RBC (3.98-5.22) M/mm3 Hgb (11.2-15.7) gm/L Hct (34.1-44.9) % MCV (79.4-94.8) fl MCH (25.6-32.2) pg MCHC (32.2-35.5) g/dl RDW Std Deviation (36.4-46.3) fL Plt Count (182-369) K/mm3 MPV (9.4-12.3) fl Neut % (Auto) (34.0-71.1) % Lymph % (Auto) (19.3-51.7) % [place] % (Auto) (4.7-12.5) % Eos % (Auto) (0.7-5.8) Baso % (Auto) (0.1-1.2) % Neut # (Auto) (1.56-6.13) K/mm3 Lymph # (Auto) (1.18-3.74) K/mm3 [place] # (Auto) (0.24-0.36) K/mm3 Eos # (Auto) (0.04-0.36) K/mm3 Baso # (Auto) (0.01-0.08) K/mm3 Manual Slide Review PT (9.5-12.1) SECONDS INR APTT (24-31) SECONDS Sodium (136-145) mEq/L Potassium (3.5-5.1) mEq/L Chloride (98-107) mEq/L Carbon Dioxide (21-32) mEq/L Anion Gap (5-15) BUN (7-18) mg/dL Creatinine (0.55-1.02) mg/dL Est Cr Clr Drug Dosing mL/min Estimated GFR (MDRD) (>60) mL/min BUN/Creatinine Ratio (14-18) Glucose (80-115) mg/dL POC Glucose 148 H 140 H (80-115) mg/dL Lactic Acid (0.4-2.0) mmol/L Calcium (8.5-10.1) mg/dL Magnesium (1.8-2.4) mg/dl Total Bilirubin (0.2-1.0) mg/dL AST (15-37) U/L ALT (14-59) U/L Alkaline Phosphatase (46-116) U/L C-Reactive Protein (<1.0) mg/dL Total Protein (6.4-8.2) g/dl Albumin (3.4-5.0) g/dl Globulin gm/dL Albumin/Globulin Ratio (1-2) MRSA (PCR) Negative 08/30/17 08/30/17 08/30/17 Range/Units 05:52 06:20 06:20 WBC 3.92 L (3.98-10.04) K/mm3 RBC 3.63 L (3.98-5.22) M/mm3 Hgb 11.6 (11.2-15.7) gm/L Hct 33.8 L (34.1-44.9) % MCV 93.1 (79.4-94.8) fl MCH 32.0 (25.6-32.2) pg MCHC 34.3 (32.2-35.5) g/dl RDW Std Deviation 45.8 (36.4-46.3) fL Plt Count 76 L (182-369) K/mm3 MPV 8.9 L (9.4-12.3) fl Neut % (Auto) 45.8 (34.0-71.1) % Lymph % (Auto) 42.9 (19.3-51.7) % [place] % (Auto) 8.4 (4.7-12.5) % Eos % (Auto) 2.6 (0.7-5.8) Baso % (Auto) 0.3 (0.1-1.2) % Neut # (Auto) 1.80 (1.56-6.13) K/mm3 Lymph # (Auto) 1.68 (1.18-3.74) K/mm3 [place] # (Auto) 0.33 (0.24-0.36) K/mm3 Eos # (Auto) 0.10 (0.04-0.36) K/mm3 Baso # (Auto) 0.01 (0.01-0.08) K/mm3 Manual Slide Review Abnormal smear PT (9.5-12.1) SECONDS INR APTT (24-31) SECONDS Sodium 141 (136-145) mEq/L Potassium 4.2 (3.5-5.1) mEq/L Chloride 107 (98-107) mEq/L Carbon Dioxide 25 (21-32) mEq/L Anion Gap 13.2 (5-15) BUN 21 H (7-18) mg/dL Creatinine 0.7 (0.55-1.02) mg/dL Est Cr Clr Drug Dosing 82.07 mL/min Estimated GFR (MDRD) > 60 (>60) mL/min BUN/Creatinine Ratio 30.0 H (14-18) Glucose 184 H (80-115) mg/dL POC Glucose 183 H (80-115) mg/dL Lactic Acid (0.4-2.0) mmol/L Calcium 8.7 (8.5-10.1) mg/dL Magnesium 1.3 L (1.8-2.4) mg/dl Total Bilirubin (0.2-1.0) mg/dL AST (15-37) U/L ALT (14-59) U/L Alkaline Phosphatase (46-116) U/L C-Reactive Protein 0.2 (<1.0) mg/dL Total Protein (6.4-8.2) g/dl Albumin (3.4-5.0) g/dl Globulin gm/dL Albumin/Globulin Ratio (1-2) MRSA (PCR) 08/30/17 08/30/17 08/30/17 Range/Units 06:20 06:20 11:33 WBC (3.98-10.04) K/mm3 RBC (3.98-5.22) M/mm3 Hgb (11.2-15.7) gm/L Hct (34.1-44.9) % MCV (79.4-94.8) fl MCH (25.6-32.2) pg MCHC (32.2-35.5) g/dl RDW Std Deviation (36.4-46.3) fL Plt Count (182-369) K/mm3 MPV (9.4-12.3) fl Neut % (Auto) (34.0-71.1) % Lymph % (Auto) (19.3-51.7) % [place] % (Auto) (4.7-12.5) % Eos % (Auto) (0.7-5.8) Baso % (Auto) (0.1-1.2) % Neut # (Auto) (1.56-6.13) K/mm3 Lymph # (Auto) (1.18-3.74) K/mm3 [place] # (Auto) (0.24-0.36) K/mm3 Eos # (Auto) (0.04-0.36) K/mm3 Baso # (Auto) (0.01-0.08) K/mm3 Manual Slide Review PT 12.8 H (9.5-12.1) SECONDS INR 1.18 APTT 26 (24-31) SECONDS Sodium (136-145) mEq/L Potassium (3.5-5.1) mEq/L Chloride (98-107) mEq/L Carbon Dioxide (21-32) mEq/L Anion Gap (5-15) BUN (7-18) mg/dL Creatinine (0.55-1.02) mg/dL Est Cr Clr Drug Dosing mL/min Estimated GFR (MDRD) (>60) mL/min BUN/Creatinine Ratio (14-18) Glucose (80-115) mg/dL POC Glucose 203 H (80-115) mg/dL Lactic Acid 1.3 (0.4-2.0) mmol/L Calcium (8.5-10.1) mg/dL Magnesium (1.8-2.4) mg/dl Total Bilirubin (0.2-1.0) mg/dL AST (15-37) U/L ALT (14-59) U/L Alkaline Phosphatase (46-116) U/L C-Reactive Protein (<1.0) mg/dL Total Protein (6.4-8.2) g/dl Albumin (3.4-5.0) g/dl Globulin gm/dL Albumin/Globulin Ratio (1-2) MRSA (PCR) Med Orders - Current: Current Medications Acetaminophen (Tylenol) 650 mg RECTAL Q6H PRN PRN Reason: Pain/Fever Albuterol/Ipratropium (Duoneb 3.0-0.5 Mg/3 Ml) 3 ml NEB QID PRN PRN Reason: Shortness of Breath Dextrose/Water (Dextrose 50% In Water) 50 ml IVPUSH ASDIRECTED PRN PRN Reason: Hypoglycemia Enoxaparin Sodium (Lovenox) 40 mg SUBCUT BEDTIME LOLIS Last Admin: 08/29/17 21:58 Dose: Not Given Hydralazine HCl (Apresoline) 20 mg IVPUSH Q6H PRN PRN Reason: Hypertension Hyoscyamine (Hyomax-Sl) 0.125 mg PO Q4H PRN PRN Reason: Other Dextrose/Sodium Chloride (Dextrose 5%-Normal Saline) 1,000 mls @ 100 mls/hr IV ASDIRECTED [facility] Last Admin: 08/30/17 08:10 Dose: 100 mls/hr Levofloxacin/Dextrose 750 mg/ (Premix) 150 mls @ 100 mls/hr IV Q24H [facility] Insulin Aspart (Novolog) 0 unit SUBCUT QIDACANDBED [facility]; Protocol Lorazepam (Ativan) 0.5 mg IVPUSH Q6H PRN PRN Reason: Anxiety Last Admin: 08/29/17 23:17 Dose: 0.5 mg Metoprolol Tartrate (Lopressor) 5 mg IVPUSH Q6H PRN PRN Reason: heart rate>120 Ondansetron HCl (Zofran Odt) 4 mg PO Q6H PRN PRN Reason: NAUSEA Sodium Chloride (Saline Flush) 10 ml FLUSH ASDIRECTED PRN PRN Reason: Keep Vein Open Last Admin: 08/29/17 17:11 Dose: 10 ml Discontinued Medications Sodium Chloride (Normal Saline) 1,000 mls @ 100 mls/hr IV ONETIME ONE Stop: 08/30/17 02:38 Last Admin: 08/29/17 17:11 Dose: 100 mls/hr Magnesium Sulfate 4 gm/ Premix 100 mls @ 300 mls/hr IV ONETIME ONE Stop: 08/30/17 11:31 Magnesium Sulfate/Dextrose 1 (gm/ Premix) 100 mls @ 100 mls/hr IV Q1H [facility] Stop: 08/30/17 15:29 Last Admin: 08/30/17 15:02 Dose: 100 mls/hr Ketorolac Tromethamine (Toradol) 15 mg IVPUSH ONETIME ONE Stop: 08/29/17 17:18 Last Admin: 08/29/17 17:22 Dose: 15 mg - Exam Quality Assessment: Supplemental Oxygen, Urine Catheter, DVT Prophylaxis General: Alert, Oriented, Cooperative, No Acute Distress HEENT: Pupils Equal, Pupils Reactive, EOMI Neck: Trachea Midline, No JVD Lungs: Normal Respiratory Effort, Decreased Breath Sounds, Rhonchi Cardiovascular: Regular Rate, Regular Rhythm GI/Abdominal Exam: Normal Bowel Sounds, Soft, Non-Tender, No Organomegaly, No Distention (Female) Exam: Deferred Back Exam: Normal Inspection Extremities: Normal Inspection, Non-Tender, Normal Capillary Refill Skin: Warm Neurological: No New Focal Deficit Psy/Mental Status: Alert - Problem List & Annotations (1) Diabetes mellitus SNOMED Code(s): 24081234 Code(s): E11.9 - TYPE 2 DIABETES MELLITUS WITHOUT COMPLICATIONS Status: Chronic Current Visit: Yes Qualifiers: Diabetes mellitus type: type 2 (2) Depression SNOMED Code(s): 85710602 Code(s): F32.9 - MAJOR DEPRESSIVE DISORDER, SINGLE EPISODE, UNSPECIFIED Status: Chronic Current Visit: Yes (3) Hypertension SNOMED Code(s): 10390979 Code(s): I10 - ESSENTIAL (PRIMARY) HYPERTENSION Status: Chronic Current Visit: Yes (4) Hyperlipidemia SNOMED Code(s): 95291735 Code(s): E78.5 - HYPERLIPIDEMIA, UNSPECIFIED Status: Chronic Current Visit: Yes (5) Cirrhosis SNOMED Code(s): 39924468 Code(s): K74.60 - UNSPECIFIED CIRRHOSIS OF LIVER Status: Chronic Current Visit: Yes (6) Anxiety SNOMED Code(s): 94742667 Code(s): F41.9 - ANXIETY DISORDER, UNSPECIFIED Status: Chronic Current Visit: Yes (7) ALS (amyotrophic lateral sclerosis) SNOMED Code(s): 06133091 Code(s): G12.21 - AMYOTROPHIC LATERAL SCLEROSIS Status: Chronic Current Visit: Yes (8) Swallowing dysfunction SNOMED Code(s): 725495615 Code(s): R13.10 - DYSPHAGIA, UNSPECIFIED Status: Acute Current Visit: Yes - Problem List Review Problem List Initiated/Reviewed/Updated: Yes - My Orders Last 24 Hours: My Active Orders 08/29/17 21:06 Consult to Speech Language Pathology [[employer] Evaluation and Treatment] [CONS] Routine 08/29/17 21:11 Metoprolol Tartrate [Lopressor] 5 mg IVPUSH Q6H PRN 08/29/17 21:13 Urinary Catheter Assessment [RC] 08/29/17 21:14 hydrALAZINE [Apresoline] 20 mg IVPUSH Q6H PRN 08/29/17 21:15 Insert Rivera Catheter [Insert Urinary Catheter] [OM.PC] Q24H Dextrose 5%-0.9% NaCl [Dextrose 5%-Normal Saline] 1,000 ml IV ASDIRECTED 08/29/17 21:16 Acetaminophen [Tylenol] 650 mg RECTAL Q6H PRN 08/29/17 21:18 RICO Hose [Antiembolic Hose] [OM.PC] Routine 08/29/17 21:30 Enoxaparin [Lovenox] 40 mg SUBCUT BEDTIME 08/29/17 22:43 LORazepam [Ativan] 0.5 mg IVPUSH Q6H PRN 08/30/17 00:03 Resuscitation Status Routine 08/30/17 09:00 CXR [Chest 2V] [CR] Routine 08/30/17 10:04 Notify Provider Consults [RC] ASDIRECTED Consult to Physician [CONS] Routine 08/30/17 11:48 Blood Glucose Check, Bedside [RC] QIDACANDBED Dextrose 50% in Water 50 ml IVPUSH ASDIRECTED PRN 08/30/17 11:49 Hyoscyamine [Hyomax-SL] 0.125 mg PO Q4H PRN 08/30/17 12:00 Ondansetron [Zofran ODT] 4 mg PO Q6H PRN 08/30/17 14:08 SCD [Sequential Compression Device] [OM.PC] Routine 08/30/17 14:12 Up to Chair [RC] ASDIRECTED 08/30/17 16:06 Head of Bed Elevation [RC] ASDIRECTED 08/30/17 16:09 Albuterol/Ipratropium [DuoNeb 3.0-0.5 MG/3 ML] 3 ml NEB QID PRN 08/30/17 16:10 RT Aerosol Therapy [RC] ASDIRECTED 08/30/17 16:15 Levofloxacin/Dextrose 5%-Water [Levaquin in D5W 750 MG/150 ML] 750 mg Premix Bag 1 bag IV Q24H 08/30/17 17:00 Insulin Aspart [NovoLOG] See Protocol SUBCUT QIDACANDBED 08/30/17 Lunch Pureed Diet [DIET] 08/31/17 05:00 BMP [BASIC METABOLIC PANEL,BMP] [CHEM] DAILY CBC WITH AUTO DIFF [HEME] DAILY CRP [C-REACTIVE PROTEIN] [CHEM] DAILY LACTIC ACID [CHEM] DAILY MAGNESIUM [CHEM] DAILY 09/01/17 05:00 BMP [BASIC METABOLIC PANEL,BMP] [CHEM] DAILY CBC WITH AUTO DIFF [HEME] DAILY CRP [C-REACTIVE PROTEIN] [CHEM] DAILY LACTIC ACID [CHEM] DAILY MAGNESIUM [CHEM] DAILY 09/01/17 10:00 Consult to Dietary [Consult to Ship Wirer] [CONS] Routine 09/02/17 05:00 BMP [BASIC METABOLIC PANEL,BMP] [CHEM] DAILY CBC WITH AUTO DIFF [HEME] DAILY MAGNESIUM [CHEM] DAILY - Plan Plan:: Impression: History of ALS with progressive dysphagia Query LLL infiltrate on CXR 08/30/2017, empiric levoquin started Malnutrition with failure to thrive Chronic Diabetes mellitus type 1 HTN HLD History of cirrhosis Anxiety/depression Plan: Gen Surg consult re: PEG, Friday, 08/31/2017 IVF Pain meds Home meds BS q 6H when NPO Swallow evaluation re: dysphagia Dietary consult re: calorie count DVT/GI prophylaxis; start SCDs Consult PT/OT as tolerated.
[2017-08-30] MEDS: Insulin Aspart 100 Units/ML 3 ML Pen SUBCUT SCH ×2 (17:26→22:47)
[2017-08-30] MEDS: LORazepam 2 MG/ML SDV IVPUSH PRN (21:40)
[2017-08-30] MEDS: Enoxaparin 40 MG/0.4 ML Syringe SUBCUT SCH (22:15)
[2017-08-31] MEDS: Dextrose 5%-0.9% NaCl 1,000 ML IV SCH ×2 (04:02→19:50)
[2017-08-31] MEDS: Insulin Aspart 100 Units/ML 3 ML Pen SUBCUT SCH ×4 (07:54→22:23)
[2017-08-31] MEDS ORDERED: Albuterol 0.083% 2.5 MG/3 ML Neb Soln NEB ONE (08:00)
[2017-08-31] MEDS ORDERED: Lidocaine 1% 6 ML ONE (08:21)
[2017-08-31] MEDS ORDERED: Propofol 200 MG/20 ML SDV ONE (08:21)
[2017-08-31] MEDS ORDERED: Midazolam 1 MG/ML 2 ML SDV ONE (08:22)
[2017-08-31] MEDS ORDERED: fentaNYL 100 MCG/2 ML SDV ONE (08:22)
[2017-08-31] MEDS ORDERED: Lidocaine 1% 2 ML ONE ×2 (08:47→09:47)
--- NOTE | 2017-08-31 09:16 | PCM.OPNOTE ---
- General Post-Op/Procedure Note Date of Surgery/Procedure: 08/31/17 Operative Procedure(s): Percutaneous endoscopic gastrostomy (PEG) tube placement Findings: No endoscopic evidence of gastric outlet obstruction and no peptic change within the esophagus or stomach. Pre Op Diagnosis: Severe protein calorie malnutrition Post-Op Diagnosis: Same Anesthesia Technique: Local, MAC, Moderate Sedation Primary Surgeon: Solis Garcia Pathology: None EBL in mLs: 1 Complications: None Condition: Good Free Text/Narrative:: Intake & Output 08/30/17 08/31/17 08/31/17 22:59 06:59 14:59 Intake Total 1740 1101 Output Total 1100 Balance 1740 1 After adequate IV sedation and analgesia was obtained with monitoring the patient was placed in the supine position. Through a bite block a lubricated upper endoscope was inserted into the esophagus then advanced under direct vision to the stomach where additional air was given. The scope was then introduced into the second part of the duodenum. The second and first parts were endoscopically normal. The antrum was unremarkable as well. In the retroflexed view there were no hiatal hernias. The gastric and cardiac regions were normal. The body of the stomach was unremarkable for peptic change. The anterior wall of the stomach was then identified and the abdomen was prepped. The light reflex was seen to the abdominal wall. This area was anesthetized with 2 mL of 1% lidocaine. An 11 blade was used to make a skin abel. A sheathed needle was then introduced through the abdominal wall into the stomach. A guidewire was passed through the needle catheter. This wire was grasped with the upper endoscope and was then pulled out through the mouth. The gastrostomy tube was connected to the wire which was then pulled through the abdominal wall and secured with the PEG tube abdominal wall fixation device. I reintroduced the upper endoscope to confirm positioning. Photographs were taken for the medical record. Air was removed as I finished the procedure which she tolerated well.
--- NOTE | 2017-08-31 09:16 | PCM48HPAN ---
Post Anesthesia Note - EVALUATION WITHIN 48HRS OF ANESTHETIC Vital Signs in Normal Range: Yes Patient Participated in Evaluation: Yes Respiratory Function Stable: Yes Airway Patent: Yes Cardiovascular Function Stable: Yes Hydration Status Stable: Yes Pain Control Satisfactory: Yes Nausea and Vomiting Control Satisfactory: Yes Mental Status Recovered: Yes Pulse Rate: 82 SaO2: 93 Resp Rate: 20 Temperature: 37.2 C Blood Pressure: 116/52 Pulse Rate: 99
[2017-08-31] MEDS ORDERED: Magnesium Sulfate/Water 2 GM in Premix Bag 1 BAG IV ONE (11:15)
[2017-08-31] MEDS ORDERED: Ondansetron 4 MG/2 ML SDV IVPUSH PRN (13:08)
[2017-08-31] MEDS ORDERED: Acetaminophen/HYDROcodone 325-5 MG Tab PO PRN (13:28)
[2017-08-31] MEDS: HYDROmorphone 0.5 MG/0.5 ML SYRINGE IVPUSH PRN (13:40)
--- NOTE | 2017-08-31 13:49 | PCM.PN ---
- General Info Date of Service: 08/31/17 Admission Dx/Problem (Free Text): Admission Diagnosis/Problem Admission Diagnosis/Problem Swallowing problem Subjective Update: Follow Up Functional Status: Reports: Urinating. Denies: Pain Controlled, New Symptoms Pain Score: 8 - Review of Systems General: Denies: Fever, Chills HEENT: Reports: No Symptoms Pulmonary: Denies: Shortness of Breath Cardiovascular: Denies: Chest Pain, Dyspnea on Exertion, Lightheadedness Gastrointestinal: Reports: Abdominal Pain. Denies: Vomiting Genitourinary: Reports: No Symptoms Musculoskeletal: Reports: No Symptoms Skin: Denies: Cyanosis, Mottled, Pallor, Diaphoresis, Bruising Neurological: Reports: Trouble Speaking (baseline). Denies: Confusion, Difficulty Walking, Weakness, Gait Disturbance Psychiatric: Denies: Depression, Anxiety, Agitation, Hallucinations - Patient Data Vitals - Most Recent: Last Vital Signs Temp 37.1 C 08/31/17 13:48 Pulse 90 08/31/17 13:48 Resp 16 08/31/17 13:48 BP 120/63 08/31/17 13:48 Pulse Ox 93 L 08/31/17 13:48 Weight - Most Recent: 52.027 kg I&O - Last 24 Hours: Intake & Output 08/30/17 08/31/17 08/31/17 22:59 06:59 14:59 Intake Total 1740 1101 100 Output Total 1100 50 Balance 1740 1 50 Lab Results Last 24 Hours: Laboratory Results - last 24 hr 08/30/17 08/30/17 08/31/17 Range/Units 17:09 22:46 05:55 WBC (3.98-10.04) K/mm3 RBC (3.98-5.22) M/mm3 Hgb (11.2-15.7) gm/L Hct (34.1-44.9) % MCV (79.4-94.8) fl MCH (25.6-32.2) pg MCHC (32.2-35.5) g/dl RDW Std Deviation (36.4-46.3) fL Plt Count (182-369) K/mm3 MPV (9.4-12.3) fl Neut % (Auto) (34.0-71.1) % Lymph % (Auto) (19.3-51.7) % [place] % (Auto) (4.7-12.5) % Eos % (Auto) (0.7-5.8) Baso % (Auto) (0.1-1.2) % Neut # (Auto) (1.56-6.13) K/mm3 Lymph # (Auto) (1.18-3.74) K/mm3 [place] # (Auto) (0.24-0.36) K/mm3 Eos # (Auto) (0.04-0.36) K/mm3 Baso # (Auto) (0.01-0.08) K/mm3 Manual Slide Review Sodium (136-145) mEq/L Potassium (3.5-5.1) mEq/L Chloride (98-107) mEq/L Carbon Dioxide (21-32) mEq/L Anion Gap (5-15) BUN (7-18) mg/dL Creatinine (0.55-1.02) mg/dL Est Cr Clr Drug Dosing mL/min Estimated GFR (MDRD) (>60) mL/min BUN/Creatinine Ratio (14-18) Glucose (80-115) mg/dL POC Glucose 284 H 240 H 188 H (80-115) mg/dL Lactic Acid (0.4-2.0) mmol/L Calcium (8.5-10.1) mg/dL Magnesium (1.8-2.4) mg/dl C-Reactive Protein (<1.0) mg/dL 08/31/17 08/31/17 08/31/17 Range/Units 06:28 06:28 06:28 WBC 3.47 L (3.98-10.04) K/mm3 RBC 3.41 L (3.98-5.22) M/mm3 Hgb 11.2 (11.2-15.7) gm/L Hct 31.5 L (34.1-44.9) % MCV 92.4 (79.4-94.8) fl MCH 32.8 H (25.6-32.2) pg MCHC 35.6 H (32.2-35.5) g/dl RDW Std Deviation 44.3 (36.4-46.3) fL Plt Count 59 L (182-369) K/mm3 MPV 9.2 L (9.4-12.3) fl Neut % (Auto) 52.4 (34.0-71.1) % Lymph % (Auto) 36.3 (19.3-51.7) % [place] % (Auto) 8.4 (4.7-12.5) % Eos % (Auto) 2.6 (0.7-5.8) Baso % (Auto) 0.3 (0.1-1.2) % Neut # (Auto) 1.82 (1.56-6.13) K/mm3 Lymph # (Auto) 1.26 (1.18-3.74) K/mm3 [place] # (Auto) 0.29 (0.24-0.36) K/mm3 Eos # (Auto) 0.09 (0.04-0.36) K/mm3 Baso # (Auto) 0.01 (0.01-0.08) K/mm3 Manual Slide Review Abnormal smear Sodium 140 (136-145) mEq/L Potassium 3.9 (3.5-5.1) mEq/L Chloride 108 H (98-107) mEq/L Carbon Dioxide 24 (21-32) mEq/L Anion Gap 11.9 (5-15) BUN 12 (7-18) mg/dL Creatinine 0.7 (0.55-1.02) mg/dL Est Cr Clr Drug Dosing 69.32 mL/min Estimated GFR (MDRD) > 60 (>60) mL/min BUN/Creatinine Ratio 17.1 (14-18) Glucose 183 H (80-115) mg/dL POC Glucose (80-115) mg/dL Lactic Acid 1.2 (0.4-2.0) mmol/L Calcium 8.1 L (8.5-10.1) mg/dL Magnesium 1.5 L (1.8-2.4) mg/dl C-Reactive Protein 0.4 (<1.0) mg/dL Med Orders - Current: Current Medications Acetaminophen (Tylenol) 650 mg RECTAL Q6H PRN PRN Reason: Pain/Fever Hydrocodone Bitart/Acetaminophen ([place] 325-5 Mg) 1 tab PO Q4H PRN PRN Reason: Pain Albuterol/Ipratropium (Duoneb 3.0-0.5 Mg/3 Ml) 3 ml NEB QID PRN PRN Reason: Shortness of Breath Dextrose/Water (Dextrose 50% In Water) 50 ml IVPUSH ASDIRECTED PRN PRN Reason: Hypoglycemia Enoxaparin Sodium (Lovenox) 40 mg SUBCUT BEDTIME [facility] Last Admin: 08/30/17 22:15 Dose: Not Given Hydralazine HCl (Apresoline) 20 mg IVPUSH Q6H PRN PRN Reason: Hypertension Hydromorphone HCl (Dilaudid) 0.5 mg IVPUSH Q4H PRN PRN Reason: Pain Last Admin: 08/31/17 13:40 Dose: 0.5 mg Hyoscyamine (Hyomax-Sl) 0.125 mg PO Q4H PRN PRN Reason: Other Dextrose/Sodium Chloride (Dextrose 5%-Normal Saline) 1,000 mls @ 100 mls/hr IV ASDIRECTED [facility] Last Admin: 08/31/17 04:02 Dose: 100 mls/hr Levofloxacin/Dextrose 750 mg/ (Premix) 150 mls @ 100 mls/hr IV Q24H [facility] Last Admin: 08/30/17 17:22 Dose: 100 mls/hr Insulin Aspart (Novolog) 0 unit SUBCUT QIDACANDBED [facility]; Protocol Last Admin: 08/31/17 07:54 Dose: Not Given Lorazepam (Ativan) 0.5 mg IVPUSH Q6H PRN PRN Reason: Anxiety Last Admin: 08/30/17 21:40 Dose: 0.5 mg Magnesium Sulfate (Pharmacy To Dose - Magnesium Replacement) 1 dose .XX ASDIRECTED [facility] Metoprolol Tartrate (Lopressor) 5 mg IVPUSH Q6H PRN PRN Reason: heart rate>120 Ondansetron HCl (Zofran Odt) 4 mg PO Q6H PRN PRN Reason: NAUSEA Ondansetron HCl (Zofran) 4 mg IVPUSH Q4H PRN PRN Reason: Nausea Last Admin: 08/31/17 13:41 Dose: 4 mg Potassium Chloride (Pharmacy To Dose - Potassium Replacement) 1 dose .XX ASDIRECTED [facility] Sodium Chloride (Saline Flush) 10 ml FLUSH ASDIRECTED PRN PRN Reason: Keep Vein Open Last Admin: 08/29/17 17:11 Dose: 10 ml Discontinued Medications Albuterol (Proventil Neb Soln) 2.5 mg NEB ONETIME ONE Stop: 08/31/17 08:01 Last Admin: 08/31/17 07:55 Dose: 2.5 mg Fentanyl (Sublimaze) Confirm Administered Dose 100 mcg .ROUTE .STK-MED ONE Stop: 08/31/17 08:23 Glycopyrrolate () Confirm Administered Dose 1 mg .ROUTE .STK-MED ONE Stop: 08/31/17 08:22 Sodium Chloride (Normal Saline) 1,000 mls @ 100 mls/hr IV ONETIME ONE Stop: 08/30/17 02:38 Last Admin: 08/29/17 17:11 Dose: 100 mls/hr Magnesium Sulfate 4 gm/ Premix 100 mls @ 300 mls/hr IV ONETIME ONE Stop: 08/30/17 11:31 Magnesium Sulfate/Dextrose 1 (gm/ Premix) 100 mls @ 100 mls/hr IV Q1H [facility] Stop: 08/30/17 15:29 Last Admin: 08/30/17 15:02 Dose: 100 mls/hr Lidocaine HCl (Xylocaine-Mpf 1%) Confirm Administered Dose 6 mls @ as directed .ROUTE .STK-MED ONE Stop: 08/31/17 08:22 Lidocaine HCl (Xylocaine-Mpf 1%) Confirm Administered Dose 2 mls @ as directed .ROUTE .STK-MED ONE Stop: 08/31/17 08:48 Lidocaine HCl (Xylocaine-Mpf 1%) Confirm Administered Dose 2 mls @ as directed .ROUTE .STK-MED ONE Stop: 08/31/17 09:48 Magnesium Sulfate 2 gm/ Premix 50 mls @ 50 mls/hr IV ONETIME ONE Stop: 08/31/17 12:14 Last Admin: 08/31/17 12:37 Dose: 50 mls/hr Ketorolac Tromethamine (Toradol) 15 mg IVPUSH ONETIME ONE Stop: 08/29/17 17:18 Last Admin: 08/29/17 17:22 Dose: 15 mg Midazolam HCl (Versed 1 Mg/Ml) Confirm Administered Dose 2 mg .ROUTE .STK-MED ONE Stop: 08/31/17 08:23 Propofol (Diprivan 20 Ml) Confirm Administered Dose 200 mg .ROUTE .STK-MED ONE Stop: 08/31/17 08:22 - Exam General: Alert, Cooperative, No Acute Distress, Other (dysarthria) HEENT: Pupils Equal, Pupils Reactive, Mucous Membr. Moist/Elias-Fela Solis Neck: Supple, Trachea Midline, No Thyromegaly Lungs: Normal Respiratory Effort, Decreased Breath Sounds Cardiovascular: Regular Rate, Regular Rhythm GI/Abdominal Exam: Normal Bowel Sounds, Soft, Non-Tender, No Organomegaly, No Distention, Other (Left sided PEG tube feeding on her abdomen) (Female) Exam: Other (indwelling hopper catheter ) Back Exam: Normal Inspection, Decreased Range of Motion Extremities: Normal Inspection, Non-Tender, No Pedal Edema, Limited Range of Motion Peripheral Pulses: 2+: Dorsalis Pedis (L), Dorsalis Pedis (R) Skin: Warm, Dry, Intact Neurological: No: Normal Gait, Reflexes Equal Bilateral Psy/Mental Status: Alert, Normal Affect, Normal Mood - Problem List Review Problem List Initiated/Reviewed/Updated: Yes - My Orders Last 24 Hours: My Active Orders 08/31/17 11:15 Magnesium Rep Pharmacy to Dose [Pharmacy to Dose - Magnesium Replacement] 1 dose .XX ASDIRECTED Potassium Rep Pharmacy to Dose [Pharmacy to Dose - Potassium Replacement] 1 dose .XX ASDIRECTED 08/31/17 13:08 Ondansetron [Zofran] 4 mg IVPUSH Q4H PRN 08/31/17 13:27 HYDROmorphone [Dilaudid] 0.5 mg IVPUSH Q4H PRN 08/31/17 13:28 Acetaminophen/HYDROcodone [[place] 325-5 MG] 1 tab PO Q4H PRN - Plan Plan:: Impression/Plan: Acute: ALS with Progressive Dysphagia - S/p PEG tube placement this morning - Aspiration Precaution - Pain Management Abdominal Pain S/p PEG Tube Placement - Tylenol marginally cutting her pain level - Start low dose [place] PRN for pain control - Will monitor for side effects Malnutrition with Failure to Thrive - 2/2 Worsening ALS - Dietary consulted to optimize nutritional intake End of Life Care - Patient would benefit with Hospice/Palliative Care - Her overall prognosis with this disease is very poor - No family member present at bedside to discuss this along with her Chronic: Diabetes Mellitus type 1, Continue Accu-check HTN HLD History of cirrhosis Anxiety/depression Plan: She is stable Continue current treatment [id number] for sustenance until PEG is ready to use in AM Narcotic Pain Meds Dietary consult re: tube feeding in AM DVT/GI prophylaxis: Lovenox SubQ/SCDs and H2B Consult PT/OT as tolerated D/c pending dietary consult and tube feeding use
[2017-08-31] MEDS: Enoxaparin 40 MG/0.4 ML Syringe SUBCUT SCH (20:11)
[2017-08-31] MEDS: LORazepam 2 MG/ML SDV IVPUSH PRN (22:22)
[2017-09-01] MEDS: Insulin Aspart 100 Units/ML 3 ML Pen SUBCUT SCH ×4 (06:33→22:09)
[2017-09-01] MEDS: Dextrose 5%-0.9% NaCl 1,000 ML IV SCH (06:38)
[2017-09-01] MEDS ORDERED: Magnesium Sulfate/Water 4 GM in Premix Bag 1 BAG IV ONE (08:00)
--- NOTE | 2017-09-01 09:15 | PCM.SURGPN ---
- General Info Date of Service: 09/01/17 POD#: 1 Functional Status: Reports: Pain Controlled - Patient Data Vitals - Most Recent: Last Vital Signs Temp 37.2 C 09/01/17 08:50 Pulse 97 09/01/17 08:50 Resp 20 09/01/17 08:50 BP 123/68 09/01/17 08:50 Pulse Ox 92 L 09/01/17 08:50 Weight - Most Recent: 66.134 kg I&O - Last 24 Hours: Intake & Output 08/31/17 09/01/17 09/01/17 22:59 06:59 14:59 Intake Total 1300 1612 Output Total 500 700 Balance 800 912 Lab Results Last 24 Hrs: Laboratory Results - last 24 hr 08/31/17 08/31/17 08/31/17 Range/Units 12:00 16:55 21:59 WBC (3.98-10.04) K/mm3 RBC (3.98-5.22) M/mm3 Hgb (11.2-15.7) gm/L Hct (34.1-44.9) % MCV (79.4-94.8) fl MCH (25.6-32.2) pg MCHC (32.2-35.5) g/dl RDW Std Deviation (36.4-46.3) fL Plt Count (182-369) K/mm3 MPV (9.4-12.3) fl Neut % (Auto) (34.0-71.1) % Lymph % (Auto) (19.3-51.7) % [place] % (Auto) (4.7-12.5) % Eos % (Auto) (0.7-5.8) Baso % (Auto) (0.1-1.2) % Neut # (Auto) (1.56-6.13) K/mm3 Lymph # (Auto) (1.18-3.74) K/mm3 [place] # (Auto) (0.24-0.36) K/mm3 Eos # (Auto) (0.04-0.36) K/mm3 Baso # (Auto) (0.01-0.08) K/mm3 Manual Slide Review Sodium (136-145) mEq/L Potassium (3.5-5.1) mEq/L Chloride (98-107) mEq/L Carbon Dioxide (21-32) mEq/L Anion Gap (5-15) BUN (7-18) mg/dL Creatinine (0.55-1.02) mg/dL Est Cr Clr Drug Dosing mL/min Estimated GFR (MDRD) (>60) mL/min BUN/Creatinine Ratio (14-18) Glucose (80-115) mg/dL POC Glucose 172 H 287 H 274 H (80-115) mg/dL Lactic Acid (0.4-2.0) mmol/L Calcium (8.5-10.1) mg/dL Magnesium (1.8-2.4) mg/dl Ammonia (11-32) umol/L C-Reactive Protein (<1.0) mg/dL 09/01/17 09/01/17 09/01/17 Range/Units 05:51 05:51 05:51 WBC 5.28 (3.98-10.04) K/mm3 RBC 3.63 L (3.98-5.22) M/mm3 Hgb 11.9 (11.2-15.7) gm/L Hct 33.7 L (34.1-44.9) % MCV 92.8 (79.4-94.8) fl MCH 32.8 H (25.6-32.2) pg MCHC 35.3 (32.2-35.5) g/dl RDW Std Deviation 45.2 (36.4-46.3) fL Plt Count 56 L (182-369) K/mm3 MPV 9.4 (9.4-12.3) fl Neut % (Auto) 67.0 (34.0-71.1) % Lymph % (Auto) 22.0 (19.3-51.7) % [place] % (Auto) 9.8 (4.7-12.5) % Eos % (Auto) 0.8 (0.7-5.8) Baso % (Auto) 0.2 (0.1-1.2) % Neut # (Auto) 3.54 (1.56-6.13) K/mm3 Lymph # (Auto) 1.16 L (1.18-3.74) K/mm3 [place] # (Auto) 0.52 H (0.24-0.36) K/mm3 Eos # (Auto) 0.04 (0.04-0.36) K/mm3 Baso # (Auto) 0.01 (0.01-0.08) K/mm3 Manual Slide Review Abnormal smear Sodium 136 (136-145) mEq/L Potassium 4.1 (3.5-5.1) mEq/L Chloride 103 (98-107) mEq/L Carbon Dioxide 24 (21-32) mEq/L Anion Gap 13.1 (5-15) BUN 8 (7-18) mg/dL Creatinine 0.6 (0.55-1.02) mg/dL Est Cr Clr Drug Dosing 95.75 mL/min Estimated GFR (MDRD) > 60 (>60) mL/min BUN/Creatinine Ratio 13.3 L (14-18) Glucose 259 H (80-115) mg/dL POC Glucose (80-115) mg/dL Lactic Acid 1.6 (0.4-2.0) mmol/L Calcium 8.4 L (8.5-10.1) mg/dL Magnesium 1.3 L (1.8-2.4) mg/dl Ammonia (11-32) umol/L C-Reactive Protein 5.9 H* (<1.0) mg/dL 09/01/17 09/01/17 Range/Units 05:51 06:27 WBC (3.98-10.04) K/mm3 RBC (3.98-5.22) M/mm3 Hgb (11.2-15.7) gm/L Hct (34.1-44.9) % MCV (79.4-94.8) fl MCH (25.6-32.2) pg MCHC (32.2-35.5) g/dl RDW Std Deviation (36.4-46.3) fL Plt Count (182-369) K/mm3 MPV (9.4-12.3) fl Neut % (Auto) (34.0-71.1) % Lymph % (Auto) (19.3-51.7) % [place] % (Auto) (4.7-12.5) % Eos % (Auto) (0.7-5.8) Baso % (Auto) (0.1-1.2) % Neut # (Auto) (1.56-6.13) K/mm3 Lymph # (Auto) (1.18-3.74) K/mm3 [place] # (Auto) (0.24-0.36) K/mm3 Eos # (Auto) (0.04-0.36) K/mm3 Baso # (Auto) (0.01-0.08) K/mm3 Manual Slide Review Sodium (136-145) mEq/L Potassium (3.5-5.1) mEq/L Chloride (98-107) mEq/L Carbon Dioxide (21-32) mEq/L Anion Gap (5-15) BUN (7-18) mg/dL Creatinine (0.55-1.02) mg/dL Est Cr Clr Drug Dosing mL/min Estimated GFR (MDRD) (>60) mL/min BUN/Creatinine Ratio (14-18) Glucose (80-115) mg/dL POC Glucose 257 H (80-115) mg/dL Lactic Acid (0.4-2.0) mmol/L Calcium (8.5-10.1) mg/dL Magnesium (1.8-2.4) mg/dl Ammonia 33 H (11-32) umol/L C-Reactive Protein (<1.0) mg/dL Med Orders - Current: Current Medications Acetaminophen (Tylenol) 650 mg RECTAL Q6H PRN PRN Reason: Pain/Fever Hydrocodone Bitart/Acetaminophen ([place] 325-5 Mg) 1 tab PO Q4H PRN PRN Reason: Pain Albuterol/Ipratropium (Duoneb 3.0-0.5 Mg/3 Ml) 3 ml NEB QID PRN PRN Reason: Shortness of Breath Dextrose/Water (Dextrose 50% In Water) 50 ml IVPUSH ASDIRECTED PRN PRN Reason: Hypoglycemia Enoxaparin Sodium (Lovenox) 40 mg SUBCUT BEDTIME [facility] Last Admin: 08/31/17 20:11 Dose: Not Given Hydralazine HCl (Apresoline) 20 mg IVPUSH Q6H PRN PRN Reason: Hypertension Hydromorphone HCl (Dilaudid) 0.5 mg IVPUSH Q4H PRN PRN Reason: Pain Last Admin: 08/31/17 13:40 Dose: 0.5 mg Hyoscyamine (Hyomax-Sl) 0.125 mg PO Q4H PRN PRN Reason: Other Dextrose/Sodium Chloride (Dextrose 5%-Normal Saline) 1,000 mls @ 100 mls/hr IV ASDIRECTED [facility] Last Admin: 09/01/17 06:38 Dose: 100 mls/hr Magnesium Sulfate 4 gm/ Premix 100 mls @ 50 mls/hr IV ONETIME ONE Stop: 09/01/17 09:59 Last Admin: 09/01/17 08:52 Dose: 50 mls/hr Insulin Aspart (Novolog) 0 unit SUBCUT QIDACANDBED [facility]; Protocol Last Admin: 09/01/17 06:33 Dose: 3 units Lorazepam (Ativan) 0.5 mg IVPUSH Q6H PRN PRN Reason: Anxiety Last Admin: 08/31/17 22:22 Dose: 0.5 mg Magnesium Sulfate (Pharmacy To Dose - Magnesium Replacement) 1 dose .XX ASDIRECTED [facility] Metoprolol Tartrate (Lopressor) 5 mg IVPUSH Q6H PRN PRN Reason: heart rate>120 Ondansetron HCl (Zofran Odt) 4 mg PO Q6H PRN PRN Reason: NAUSEA Ondansetron HCl (Zofran) 4 mg IVPUSH Q4H PRN PRN Reason: Nausea Last Admin: 08/31/17 13:41 Dose: 4 mg Potassium Chloride (Pharmacy To Dose - Potassium Replacement) 1 dose .XX ASDIRECTED [facility] Sodium Chloride (Saline Flush) 10 ml FLUSH ASDIRECTED PRN PRN Reason: Keep Vein Open Last Admin: 08/29/17 17:11 Dose: 10 ml Discontinued Medications Albuterol (Proventil Neb Soln) 2.5 mg NEB ONETIME ONE Stop: 08/31/17 08:01 Last Admin: 08/31/17 07:55 Dose: 2.5 mg Fentanyl (Sublimaze) Confirm Administered Dose 100 mcg .ROUTE .STK-MED ONE Stop: 08/31/17 08:23 Glycopyrrolate () Confirm Administered Dose 1 mg .ROUTE .STK-MED ONE Stop: 08/31/17 08:22 Sodium Chloride (Normal Saline) 1,000 mls @ 100 mls/hr IV ONETIME ONE Stop: 08/30/17 02:38 Last Admin: 08/29/17 17:11 Dose: 100 mls/hr Magnesium Sulfate 4 gm/ Premix 100 mls @ 300 mls/hr IV ONETIME ONE Stop: 08/30/17 11:31 Magnesium Sulfate/Dextrose 1 (gm/ Premix) 100 mls @ 100 mls/hr IV Q1H [facility] Stop: 08/30/17 15:29 Last Admin: 08/30/17 15:02 Dose: 100 mls/hr Levofloxacin/Dextrose 750 mg/ (Premix) 150 mls @ 100 mls/hr IV Q24H [facility] Last Admin: 08/30/17 17:22 Dose: 100 mls/hr Lidocaine HCl (Xylocaine-Mpf 1%) Confirm Administered Dose 6 mls @ as directed .ROUTE .STK-MED ONE Stop: 08/31/17 08:22 Lidocaine HCl (Xylocaine-Mpf 1%) Confirm Administered Dose 2 mls @ as directed .ROUTE .STK-MED ONE Stop: 08/31/17 08:48 Lidocaine HCl (Xylocaine-Mpf 1%) Confirm Administered Dose 2 mls @ as directed .ROUTE .STK-MED ONE Stop: 08/31/17 09:48 Magnesium Sulfate 2 gm/ Premix 50 mls @ 50 mls/hr IV ONETIME ONE Stop: 08/31/17 12:14 Last Admin: 08/31/17 12:37 Dose: 50 mls/hr Ketorolac Tromethamine (Toradol) 15 mg IVPUSH ONETIME ONE Stop: 08/29/17 17:18 Last Admin: 08/29/17 17:22 Dose: 15 mg Midazolam HCl (Versed 1 Mg/Ml) Confirm Administered Dose 2 mg .ROUTE .STK-MED ONE Stop: 08/31/17 08:23 Propofol (Diprivan 20 Ml) Confirm Administered Dose 200 mg .ROUTE .STK-MED ONE Stop: 08/31/17 08:22 - Exam Wound/Incisions: Dressing Dry and Intact - Problem List & Annotations (1) Swallowing dysfunction SNOMED Code(s): 463371692 Code(s): R13.10 - DYSPHAGIA, UNSPECIFIED Status: Acute Current Visit: Yes - Problem List Review Problem List Initiated/Reviewed/Updated: Yes - My Orders Last 24 Hours: Active Orders 24 hr Category Date Time Status Communication Order [RC] ROUTINE Care 09/01/17 09:12 Ordered Oxygen Therapy [RC] ASDIRECTED Care 08/31/17 08:45 Active Pulse Oximetry [RC] ASDIRECTED Care 08/31/17 08:45 Active Vital Signs [RC] Q4HR Care 08/31/17 08:45 Active Consult to Dietary [Consult to Reservations Manager] [CONS] Cons 09/01/17 10:00 Active Routine Pureed Diet [DIET] Diet 08/31/17 Dinner Active CXR [Chest 2V] [CR] Routine Exams 09/01/17 08:29 Ordered BMP [BASIC METABOLIC PANEL,BMP] [CHEM] DAILY Lab 09/02/17 05:00 Ordered CBC WITH AUTO DIFF [HEME] DAILY Lab 09/02/17 05:00 Ordered MAGNESIUM [CHEM] DAILY Lab 09/02/17 05:00 Ordered Acetaminophen/HYDROcodone [[place] 325-5 MG] Med 08/31/17 13:28 Active 1 tab PO Q4H PRN HYDROmorphone [Dilaudid] Med 08/31/17 13:27 Active 0.5 mg IVPUSH Q4H PRN Magnesium Rep Pharmacy to Dose [Pharmacy to Dose - Med 08/31/17 11:15 Active Magnesium Replacement] 1 dose .XX ASDIRECTED Magnesium Sulfate/Water [Magnesium Sulfate 4 GM in Med 09/01/17 08:00 Active Water 100 ML] 4 gm Premix Bag 1 bag IV ONETIME Ondansetron [Zofran] Med 08/31/17 13:08 Active 4 mg IVPUSH Q4H PRN Potassium Rep Pharmacy to Dose [Pharmacy to Dose - Med 08/31/17 11:15 Active Potassium Replacement] 1 dose .XX ASDIRECTED PEG Tube Management [Percutaneous Endoscopic Gastostomy Oth 08/31/17 09:19 Ordered Tube] [OM.PC] Routine Schedule Procedure [COMM] Routine Oth 08/31/17 09:00 Ordered Medication Orders Acetaminophen (Tylenol) 650 mg RECTAL Q6H PRN PRN Reason: Pain/Fever Hydrocodone Bitart/Acetaminophen ([place] 325-5 Mg) 1 tab PO Q4H PRN PRN Reason: Pain Albuterol/Ipratropium (Duoneb 3.0-0.5 Mg/3 Ml) 3 ml NEB QID PRN PRN Reason: Shortness of Breath Dextrose/Water (Dextrose 50% In Water) 50 ml IVPUSH ASDIRECTED PRN PRN Reason: Hypoglycemia Enoxaparin Sodium (Lovenox) 40 mg SUBCUT BEDTIME [facility] Last Admin: 08/31/17 20:11 Dose: Not Given Admin: 08/30/17 22:15 Dose: Not Given Admin: 08/29/17 21:58 Dose: Not Given Hydralazine HCl (Apresoline) 20 mg IVPUSH Q6H PRN PRN Reason: Hypertension Hydromorphone HCl (Dilaudid) 0.5 mg IVPUSH Q4H PRN PRN Reason: Pain Last Admin: 08/31/17 13:40 Dose: 0.5 mg Hyoscyamine (Hyomax-Sl) 0.125 mg PO Q4H PRN PRN Reason: Other Dextrose/Sodium Chloride (Dextrose 5%-Normal Saline) 1,000 mls @ 100 mls/hr IV ASDIRECTED [facility] Last Admin: 09/01/17 06:38 Dose: 100 mls/hr Infusion: 09/01/17 05:50 Dose: 100 mls/hr Admin: 08/31/17 19:50 Dose: 100 mls/hr Infusion: 08/31/17 14:02 Dose: 100 mls/hr Admin: 08/31/17 04:02 Dose: 100 mls/hr Infusion: 08/31/17 03:49 Dose: 100 mls/hr Admin: 08/30/17 17:49 Dose: 100 mls/hr Infusion: 08/30/17 17:49 Dose: 100 mls/hr Admin: 08/30/17 08:10 Dose: 100 mls/hr Infusion: 08/30/17 07:55 Dose: 100 mls/hr Admin: 08/29/17 21:55 Dose: 100 mls/hr Magnesium Sulfate 4 gm/ Premix 100 mls @ 50 mls/hr IV ONETIME ONE Stop: 09/01/17 09:59 Last Admin: 09/01/17 08:52 Dose: 50 mls/hr Insulin Aspart (Novolog) 0 unit SUBCUT QIDACANDBED [facility]; Protocol Last Admin: 09/01/17 06:33 Dose: 3 units Admin: 08/31/17 22:23 Dose: 3 units Admin: 08/31/17 17:44 Dose: 3 units Admin: 08/31/17 14:24 Dose: Not Given Admin: 08/31/17 07:54 Dose: Admin: 08/30/17 22:47 Dose: 2 units Admin: 08/30/17 17:26 Dose: 3 units Lorazepam (Ativan) 0.5 mg IVPUSH Q6H PRN PRN Reason: Anxiety Last Admin: 08/31/17 22:22 Dose: 0.5 mg Admin: 08/30/17 21:40 Dose: 0.5 mg Admin: 08/29/17 23:17 Dose: 0.5 mg Magnesium Sulfate (Pharmacy To Dose - Magnesium Replacement) 1 dose .XX ASDIRECTED [facility] Metoprolol Tartrate (Lopressor) 5 mg IVPUSH Q6H PRN PRN Reason: heart rate>120 Ondansetron HCl (Zofran Odt) 4 mg PO Q6H PRN PRN Reason: NAUSEA Ondansetron HCl (Zofran) 4 mg IVPUSH Q4H PRN PRN Reason: Nausea Last Admin: 08/31/17 13:41 Dose: 4 mg Potassium Chloride (Pharmacy To Dose - Potassium Replacement) 1 dose .XX ASDIRECTED [facility] Sodium Chloride (Saline Flush) 10 ml FLUSH ASDIRECTED PRN PRN Reason: Keep Vein Open Last Admin: 08/29/17 17:11 Dose: 10 ml - Assessment Assessment (Free Text/Narrative):: Uncomplicated procedure. Tube is ready for use today. - Plan Plan (Free Text/Narrative):: Standard PEG tube use and care per protocol.
--- NOTE | 2017-09-01 11:14 | CR ---
Chest: Two views of the chest were obtained. Comparison: Prior chest x-ray of 08/30/17. Heart size and mediastinum are normal. Mild atelectasis seen within both lung bases. Poor inspiratory study is noted. Lungs otherwise are clear. Review of cervical spine surgery is noted. Surgical clips seen at the upper abdomen. Several old left lower rib fractures are seen. Surgical clips seen within the right axillary region. Impression: 1. Mild bibasilar atelectasis. Other incidental findings. 2. Nothing acute is otherwise seen. Diagnostic code #2
--- NOTE | 2017-09-01 11:15 | CR ---
Chest: Portable view of the chest was obtained. Comparison: Previous chest x-ray is not available. Slight parenchymal density is noted within the left base. Lungs otherwise are clear. Old healed left-sided rib fractures are noted. Prior cervical spine surgery is noted. Mild scoliosis is present within the spine. Surgical clips are seen from prior cholecystectomy. Impression: 1. Slight parenchymal density within the left base most likely due to atelectasis. 2. Other incidental findings. Diagnostic code #3
--- NOTE | 2017-09-01 11:28 | CR ---
Chest: Two views of the chest were obtained. Comparison: Prior chest x-ray of 08/29/17. Heart size and mediastinum are within normal limits. Prior cervical spine surgery is noted. Mild scoliosis noted within the spine. Old healed left-sided rib fractures again noted. Slight increased density within the left base which is more prominent than on prior exam. Lungs otherwise are clear. Surgical clips are seen within the right axillary region. Surgical clips are also noted from prior cholecystectomy. Impression: 1. Mild increasing density within the left base most likely due to worsening atelectasis. 2. Other incidental findings. Diagnostic code #3 I agree with preliminary report from [facility], finalized at 08/30/17, 10:27 AM Central Time
--- NOTE | 2017-09-01 16:05 | PCM.PN ---
- General Info Date of Service: 09/01/17 Admission Dx/Problem (Free Text): Admission Diagnosis/Problem Admission Diagnosis/Problem Swallowing problem Subjective Update: In to see Jessica. Her daughter is at bedside. Her blood sugar is over 400 so lab has been called. Discussed plan of care with daughter. Patient reports generalized myaglias and mild SOB. She is still on O2. Tube feedings were started and will see how they go prior to discharging patient. Plan is to discharge back to [facility] tomorrow. Functional Status: Reports: Pain Controlled, Tolerating Diet (tube feedings ), Ambulating, Urinating. Denies: New Symptoms - Review of Systems General: Reports: Weakness, Fatigue, Malaise. Denies: Fever, Chills HEENT: Reports: No Symptoms. Denies: Eye Pain, Sinus Congestion, Sore Throat Pulmonary: Reports: Shortness of Breath. Denies: Pleuritic Chest Pain, Cough, Wheezing Cardiovascular: Reports: No Symptoms. Denies: Chest Pain, Palpitations, Edema Gastrointestinal: Reports: Abdominal Pain (PEG site ), Difficulty Swallowing. Denies: Constipation, Diarrhea, Nausea, Vomiting Genitourinary: Reports: No Symptoms Musculoskeletal: Reports: Other (generalized myagias ) Skin: Reports: No Symptoms Neurological: Reports: No Symptoms Psychiatric: Reports: No Symptoms - Patient Data Vitals - Most Recent: Last Vital Signs Temp 99.0 F 09/01/17 12:42 Pulse 99 09/01/17 12:42 Resp 20 09/01/17 12:42 BP 121/44 L 09/01/17 12:42 Pulse Ox 94 L 09/01/17 12:42 Weight - Most Recent: 114 lb 11.2 oz I&O - Last 24 Hours: Intake & Output 09/01/17 09/01/17 09/01/17 06:59 14:59 22:59 Intake Total 1612 1048 Output Total 700 500 Balance 912 548 Lab Results Last 24 Hours: Laboratory Results - last 24 hr 08/31/17 08/31/17 08/31/17 Range/Units 12:00 16:55 21:59 WBC (3.98-10.04) K/mm3 RBC (3.98-5.22) M/mm3 Hgb (11.2-15.7) gm/L Hct (34.1-44.9) % MCV (79.4-94.8) fl MCH (25.6-32.2) pg MCHC (32.2-35.5) g/dl RDW Std Deviation (36.4-46.3) fL Plt Count (182-369) K/mm3 MPV (9.4-12.3) fl Neut % (Auto) (34.0-71.1) % Lymph % (Auto) (19.3-51.7) % [place] % (Auto) (4.7-12.5) % Eos % (Auto) (0.7-5.8) Baso % (Auto) (0.1-1.2) % Neut # (Auto) (1.56-6.13) K/mm3 Lymph # (Auto) (1.18-3.74) K/mm3 [place] # (Auto) (0.24-0.36) K/mm3 Eos # (Auto) (0.04-0.36) K/mm3 Baso # (Auto) (0.01-0.08) K/mm3 Manual Slide Review Sodium (136-145) mEq/L Potassium (3.5-5.1) mEq/L Chloride (98-107) mEq/L Carbon Dioxide (21-32) mEq/L Anion Gap (5-15) BUN (7-18) mg/dL Creatinine (0.55-1.02) mg/dL Est Cr Clr Drug Dosing mL/min Estimated GFR (MDRD) (>60) mL/min BUN/Creatinine Ratio (14-18) Glucose (80-115) mg/dL POC Glucose 172 H 287 H 274 H (80-115) mg/dL Lactic Acid (0.4-2.0) mmol/L Calcium (8.5-10.1) mg/dL Magnesium (1.8-2.4) mg/dl Ammonia (11-32) umol/L C-Reactive Protein (<1.0) mg/dL 09/01/17 09/01/17 09/01/17 Range/Units 05:51 05:51 05:51 WBC 5.28 (3.98-10.04) K/mm3 RBC 3.63 L (3.98-5.22) M/mm3 Hgb 11.9 (11.2-15.7) gm/L Hct 33.7 L (34.1-44.9) % MCV 92.8 (79.4-94.8) fl MCH 32.8 H (25.6-32.2) pg MCHC 35.3 (32.2-35.5) g/dl RDW Std Deviation 45.2 (36.4-46.3) fL Plt Count 56 L (182-369) K/mm3 MPV 9.4 (9.4-12.3) fl Neut % (Auto) 67.0 (34.0-71.1) % Lymph % (Auto) 22.0 (19.3-51.7) % [place] % (Auto) 9.8 (4.7-12.5) % Eos % (Auto) 0.8 (0.7-5.8) Baso % (Auto) 0.2 (0.1-1.2) % Neut # (Auto) 3.54 (1.56-6.13) K/mm3 Lymph # (Auto) 1.16 L (1.18-3.74) K/mm3 Talbot # (Auto) 0.52 H (0.24-0.36) K/mm3 Eos # (Auto) 0.04 (0.04-0.36) K/mm3 Baso # (Auto) 0.01 (0.01-0.08) K/mm3 Manual Slide Review Abnormal smear Sodium 136 (136-145) mEq/L Potassium 4.1 (3.5-5.1) mEq/L Chloride 103 (98-107) mEq/L Carbon Dioxide 24 (21-32) mEq/L Anion Gap 13.1 (5-15) BUN 8 (7-18) mg/dL Creatinine 0.6 (0.55-1.02) mg/dL Est Cr Clr Drug Dosing 95.75 mL/min Estimated GFR (MDRD) > 60 (>60) mL/min BUN/Creatinine Ratio 13.3 L (14-18) Glucose 259 H (80-115) mg/dL POC Glucose (80-115) mg/dL Lactic Acid 1.6 (0.4-2.0) mmol/L Calcium 8.4 L (8.5-10.1) mg/dL Magnesium 1.3 L (1.8-2.4) mg/dl Ammonia (11-32) umol/L C-Reactive Protein 5.9 H* (<1.0) mg/dL 09/01/17 09/01/17 Range/Units 05:51 06:27 WBC (3.98-10.04) K/mm3 RBC (3.98-5.22) M/mm3 Hgb (11.2-15.7) gm/L Hct (34.1-44.9) % MCV (79.4-94.8) fl MCH (25.6-32.2) pg MCHC (32.2-35.5) g/dl RDW Std Deviation (36.4-46.3) fL Plt Count (182-369) K/mm3 MPV (9.4-12.3) fl Neut % (Auto) (34.0-71.1) % Lymph % (Auto) (19.3-51.7) % [place] % (Auto) (4.7-12.5) % Eos % (Auto) (0.7-5.8) Baso % (Auto) (0.1-1.2) % Neut # (Auto) (1.56-6.13) K/mm3 Lymph # (Auto) (1.18-3.74) K/mm3 [place] # (Auto) (0.24-0.36) K/mm3 Eos # (Auto) (0.04-0.36) K/mm3 Baso # (Auto) (0.01-0.08) K/mm3 Manual Slide Review Sodium (136-145) mEq/L Potassium (3.5-5.1) mEq/L Chloride (98-107) mEq/L Carbon Dioxide (21-32) mEq/L Anion Gap (5-15) BUN (7-18) mg/dL Creatinine (0.55-1.02) mg/dL Est Cr Clr Drug Dosing mL/min Estimated GFR (MDRD) (>60) mL/min BUN/Creatinine Ratio (14-18) Glucose (80-115) mg/dL POC Glucose 257 H (80-115) mg/dL Lactic Acid (0.4-2.0) mmol/L Calcium (8.5-10.1) mg/dL Magnesium (1.8-2.4) mg/dl Ammonia 33 H (11-32) umol/L C-Reactive Protein (<1.0) mg/dL Med Orders - Current: Current Medications Acetaminophen (Tylenol) 650 mg RECTAL Q6H PRN PRN Reason: Pain/Fever Hydrocodone Bitart/Acetaminophen ([place] 325-5 Mg) 1 tab PO Q4H PRN PRN Reason: Pain Albuterol/Ipratropium (Duoneb 3.0-0.5 Mg/3 Ml) 3 ml NEB QID PRN PRN Reason: Shortness of Breath Dextrose/Water (Dextrose 50% In Water) 50 ml IVPUSH ASDIRECTED PRN PRN Reason: Hypoglycemia Enoxaparin Sodium (Lovenox) 40 mg SUBCUT BEDTIME [facility] Last Admin: 08/31/17 20:11 Dose: Not Given Famotidine (Pepcid) 20 mg PO BID [facility] Hydralazine HCl (Apresoline) 20 mg IVPUSH Q6H PRN PRN Reason: Hypertension Hydromorphone HCl (Dilaudid) 0.5 mg IVPUSH Q4H PRN PRN Reason: Pain Last Admin: 08/31/17 13:40 Dose: 0.5 mg Hyoscyamine (Hyomax-Sl) 0.125 mg PO Q4H PRN PRN Reason: Other Dextrose/Sodium Chloride (Dextrose 5%-Normal Saline) 1,000 mls @ 100 mls/hr IV ASDIRECTED [facility] Last Admin: 09/01/17 06:38 Dose: 100 mls/hr Insulin Aspart (Novolog) 0 unit SUBCUT QIDACANDBED [facility]; Protocol Last Admin: 09/01/17 12:50 Dose: 2 units Lorazepam (Ativan) 0.5 mg IVPUSH Q6H PRN PRN Reason: Anxiety Last Admin: 08/31/17 22:22 Dose: 0.5 mg Magnesium Sulfate (Pharmacy To Dose - Magnesium Replacement) 1 dose .XX ASDIRECTED [facility] Metoprolol Tartrate (Lopressor) 5 mg IVPUSH Q6H PRN PRN Reason: heart rate>120 Ondansetron HCl (Zofran Odt) 4 mg PO Q6H PRN PRN Reason: NAUSEA Ondansetron HCl (Zofran) 4 mg IVPUSH Q4H PRN PRN Reason: Nausea Last Admin: 08/31/17 13:41 Dose: 4 mg Potassium Chloride (Pharmacy To Dose - Potassium Replacement) 1 dose .XX ASDIRECTED LOLIS Sodium Chloride (Saline Flush) 10 ml FLUSH ASDIRECTED PRN PRN Reason: Keep Vein Open Last Admin: 08/29/17 17:11 Dose: 10 ml Discontinued Medications Albuterol (Proventil Neb Soln) 2.5 mg NEB ONETIME ONE Stop: 08/31/17 08:01 Last Admin: 08/31/17 07:55 Dose: 2.5 mg Fentanyl (Sublimaze) Confirm Administered Dose 100 mcg .ROUTE .STK-MED ONE Stop: 08/31/17 08:23 Glycopyrrolate () Confirm Administered Dose 1 mg .ROUTE .STK-MED ONE Stop: 08/31/17 08:22 Sodium Chloride (Normal Saline) 1,000 mls @ 100 mls/hr IV ONETIME ONE Stop: 08/30/17 02:38 Last Admin: 08/29/17 17:11 Dose: 100 mls/hr Magnesium Sulfate 4 gm/ Premix 100 mls @ 300 mls/hr IV ONETIME ONE Stop: 08/30/17 11:31 Magnesium Sulfate/Dextrose 1 (gm/ Premix) 100 mls @ 100 mls/hr IV Q1H [facility] Stop: 08/30/17 15:29 Last Admin: 08/30/17 15:02 Dose: 100 mls/hr Levofloxacin/Dextrose 750 mg/ (Premix) 150 mls @ 100 mls/hr IV Q24H [facility] Last Admin: 08/30/17 17:22 Dose: 100 mls/hr Lidocaine HCl (Xylocaine-Mpf 1%) Confirm Administered Dose 6 mls @ as directed .ROUTE .STK-MED ONE Stop: 08/31/17 08:22 Lidocaine HCl (Xylocaine-Mpf 1%) Confirm Administered Dose 2 mls @ as directed .ROUTE .STK-MED ONE Stop: 08/31/17 08:48 Lidocaine HCl (Xylocaine-Mpf 1%) Confirm Administered Dose 2 mls @ as directed .ROUTE .STK-MED ONE Stop: 08/31/17 09:48 Magnesium Sulfate 2 gm/ Premix 50 mls @ 50 mls/hr IV ONETIME ONE Stop: 08/31/17 12:14 Last Admin: 08/31/17 12:37 Dose: 50 mls/hr Magnesium Sulfate 4 gm/ Premix 100 mls @ 50 mls/hr IV ONETIME ONE Stop: 09/01/17 09:59 Last Admin: 09/01/17 08:52 Dose: 50 mls/hr Ketorolac Tromethamine (Toradol) 15 mg IVPUSH ONETIME ONE Stop: 08/29/17 17:18 Last Admin: 08/29/17 17:22 Dose: 15 mg Midazolam HCl (Versed 1 Mg/Ml) Confirm Administered Dose 2 mg .ROUTE .STK-MED ONE Stop: 08/31/17 08:23 Propofol (Diprivan 20 Ml) Confirm Administered Dose 200 mg .ROUTE .STK-MED ONE Stop: 08/31/17 08:22 - Exam Quality Assessment: DVT Prophylaxis General: Alert, Oriented, Cooperative, Sedated, Other (very sleepy ) HEENT: Pupils Equal, Pupils Reactive, EOMI, Mucous Membr. Moist/[place]uck[place], Other ( dysarthralgia ) Neck: Supple, Trachea Midline, No JVD Lungs: Normal Respiratory Effort, Decreased Breath Sounds Cardiovascular: Regular Rate, Regular Rhythm GI/Abdominal Exam: Normal Bowel Sounds, Soft, Non-Tender, No Organomegaly, No Distention (Female) Exam: Deferred Back Exam: Normal Inspection, Decreased Range of Motion Extremities: Normal Inspection, Non-Tender, No Pedal Edema, Normal Capillary Refill, Limited Range of Motion Peripheral Pulses: 2+: Radial (L), Radial (R), Posterior Tibial (L), Posterior Tibial (R), Dorsalis Pedis (L), Dorsalis Pedis (R) Skin: Warm, Dry, Intact Wound/Incisions: Healing Well Neurological: No New Focal Deficit Psy/Mental Status: Alert - Problem List & Annotations (1) S/P percutaneous endoscopic gastrostomy (PEG) tube placement SNOMED Code(s): 642941960 Code(s): Z93.1 - GASTROSTOMY STATUS Status: Acute Priority: High Current Visit: Yes (2) Swallowing dysfunction SNOMED Code(s): 802251711 Code(s): R13.10 - DYSPHAGIA, UNSPECIFIED Status: Acute Priority: High Current Visit: Yes (3) ALS (amyotrophic lateral sclerosis) SNOMED Code(s): 15055665 Code(s): G12.21 - AMYOTROPHIC LATERAL SCLEROSIS Status: Chronic Priority : High Current Visit: Yes (4) Anxiety SNOMED Code(s): 30282205 Code(s): F41.9 - ANXIETY DISORDER, UNSPECIFIED Status: Chronic Priority: High Current Visit: Yes (5) Cirrhosis SNOMED Code(s): 18626467 Code(s): K74.60 - UNSPECIFIED CIRRHOSIS OF LIVER Status: Chronic Priority : High Current Visit: Yes Qualifiers: Hepatic cirrhosis type: unspecified hepatic cirrhosis Ascites presence: unspecified Qualified Code(s): K74.60 - Unspecified cirrhosis of liver (6) Diabetes mellitus SNOMED Code(s): 14014111 Code(s): E11.9 - TYPE 2 DIABETES MELLITUS WITHOUT COMPLICATIONS Status: Chronic Priority: High Current Visit: Yes Qualifiers: Diabetes mellitus type: type 2 Diabetes mellitus detention insulin use: unspecified terminal superintendent insulin use status Diabetes mellitus complication status : with unspecified complications Qualified Code(s): E11.8 - Type 2 diabetes mellitus with unspecified complications (7) Hyperlipidemia SNOMED Code(s): 96408988 Code(s): E78.5 - HYPERLIPIDEMIA, UNSPECIFIED Status: Chronic Priority: Medium Current Visit: No Qualifiers: Hyperlipidemia type: unspecified Qualified Code(s): E78.5 - Hyperlipidemia , unspecified (8) Hypertension SNOMED Code(s): 97610737 Code(s): I10 - ESSENTIAL (PRIMARY) HYPERTENSION Status: Chronic Priority : Medium Current Visit: No Qualifiers: Hypertension type: unspecified Qualified Code(s): I10 - Essential (primary ) hypertension - Problem List Review Problem List Initiated/Reviewed/Updated: Yes - My Orders Last 24 Hours: My Active Orders 09/01/17 11:12 Tube Feeding [Enteral Feedings] [] Click to Edit 09/01/17 11:18 Communication Order [] TIDMEALS - Plan Plan:: Impression/Plan: Acute: ALS with Progressive Dysphagia - S/p PEG tube placement yesterday - Start tube feedings per recommendations from dietary - Aspiration Precaution - Pain Management Abdominal Pain S/p PEG Tube Placement - Tylenol marginally cutting her pain level - Start low dose [place] PRN for pain control - Will monitor for side effects Malnutrition with Failure to Thrive - 2/2 Worsening ALS - Dietary consulted to optimize nutritional intake End of Life Care - Patient would benefit with Hospice/Palliative Care - Her overall prognosis with this disease is very poor - Discussed with daughter. Would like to see how next few days go. Chronic: Diabetes Mellitus type 1, Continue Accu-check and SS insulin HTN HLD History of cirrhosis Anxiety/depression Plan: She is stable Continue current treatment [id number] for sustenance until PEG is ready to use in AM - > discontinue Narcotic Pain Meds Dietary consult re: tube feeding in AM DVT/GI prophylaxis: Lovenox SubQ/SCDs and H2B Consult PT/OT as tolerated D/C tomorrow to [facility] pending good tolerance of tube feedings
[2017-09-01] MEDS ORDERED: Famotidine 20 MG Tab PO SCH (21:00)
[2017-09-01] MEDS: Enoxaparin 40 MG/0.4 ML Syringe SUBCUT SCH (21:07)
[2017-09-01] MEDS: HYDROmorphone 0.5 MG/0.5 ML SYRINGE IVPUSH PRN (21:14)
[2017-09-01] MEDS: LORazepam 2 MG/ML SDV IVPUSH PRN (22:19)
[2017-09-02] MEDS ORDERED: Famotidine 20 MG Tab GTUBE SCH (04:06)
[2017-09-02] MEDS ORDERED: Hyoscyamine 0.125 MG Tab.SL SL PRN (04:06)
[2017-09-02] MEDS ORDERED: Acetaminophen/HYDROcodone 325-5 MG Tab GTUBE PRN (04:06)
[2017-09-02] MEDS ORDERED: Ondansetron 4 MG Tab.DIS GTUBE PRN (04:07)
[2017-09-02] MEDS ORDERED: Baclofen 10 MG Tab PO PRN (07:18)
[2017-09-02] MEDS ORDERED: INSULIN GLARG HUMAN REC ANALOG SQ SCH (07:30)
[2017-09-02] MEDS ORDERED: Magnesium Sulfate/Water 4 GM in Premix Bag 1 BAG IV ONE (08:30)
--- NOTE | 2017-09-02 08:35 | PCM.DCSUM1 ---
Discharge Summary - Hospital Course HPI Initial Comments: 61 year old female with PMH of ALS presents with progressive dysphagia; the patient had difficulty eating her lunch on the day of admission. The choking spell precipitated a request for an "emergent PEG". However this is a planned procedure, and in fact an out patient assessment and future date was discussed with a general surgeon. However that was 2 weeks ago, unfortunately the procedure was not performed. The patient can no longer eat or drink with confidence. She is a DNR, not a DNI. The procedure will be arranged as appropriate. She will be admitted to [place] floor. A swallow evaluation formally will be requested. She currently is NPO. Diagnosis: Stroke: No - Discharge Data Discharge Date: 09/02/17 (Admit date: 08/29/17) Discharge Disposition: DC/Tfer to SNF 03 Condition: Poor - Discharge Diagnosis/Problem(s) (1) S/P percutaneous endoscopic gastrostomy (PEG) tube placement SNOMED Code(s): 586508661 ICD Code: Z93.1 - GASTROSTOMY STATUS Status: Acute Priority: High Current Visit: Yes (2) Swallowing dysfunction SNOMED Code(s): 960013360 ICD Code: R13.10 - DYSPHAGIA, UNSPECIFIED Status: Acute Priority: High Current Visit: Yes (3) ALS (amyotrophic lateral sclerosis) SNOMED Code(s): 25749965 ICD Code: G12.21 - AMYOTROPHIC LATERAL SCLEROSIS Status: Chronic Priority : High Current Visit: Yes (4) Anxiety SNOMED Code(s): 65913916 ICD Code: F41.9 - ANXIETY DISORDER, UNSPECIFIED Status: Chronic Priority : High Current Visit: Yes (5) Cirrhosis SNOMED Code(s): 33305414 ICD Code: K74.60 - UNSPECIFIED CIRRHOSIS OF LIVER Status: Chronic Priority: High Current Visit: Yes Qualifiers: Hepatic cirrhosis type: unspecified hepatic cirrhosis Ascites presence: unspecified Qualified Code(s): K74.60 - Unspecified cirrhosis of liver (6) Diabetes mellitus SNOMED Code(s): 11340661 ICD Code: E11.9 - TYPE 2 DIABETES MELLITUS WITHOUT COMPLICATIONS Status: Chronic Priority: High Current Visit: Yes Qualifiers: Diabetes mellitus type: type 2 Diabetes mellitus rat exterminator insulin use: unspecified rat exterminator insulin use status Diabetes mellitus complication status : with unspecified complications Qualified Code(s): E11.8 - Type 2 diabetes mellitus with unspecified complications (7) Hyperlipidemia SNOMED Code(s): 62459595 ICD Code: E78.5 - HYPERLIPIDEMIA, UNSPECIFIED Status: Chronic Priority: Medium Current Visit: No Qualifiers: Hyperlipidemia type: unspecified Qualified Code(s): E78.5 - Hyperlipidemia , unspecified (8) Hypertension SNOMED Code(s): 21693119 ICD Code: I10 - ESSENTIAL (PRIMARY) HYPERTENSION Status: Chronic Priority : Medium Current Visit: No Qualifiers: Hypertension type: unspecified Qualified Code(s): I10 - Essential (primary ) hypertension - Patient Summary/Data Operative Procedure(s) Performed: Percutaneous endoscopic gastrostomy (PEG) tube placement Consults: Consultations 08/29/17 21:06 Consult to Speech Language Pathology [THERMAL SURFACING MACHINE OPERATOR Evaluation and Treatment] [CONS] Routine 08/30/17 10:04 Consult to Physician [CONS] Routine 09/01/17 09:37 Consult to Salad Bar Clerk [CONS] Routine 09/01/17 10:00 Consult to Dietary [Consult to Program Admin] [CONS] Routine Labs Pending at D/C: None Recommended Follow-up Testing/Procedures: Follow-up with PCP within 7-10 days of discharge. Hospital Course: Impression/Plan: Acute: ALS with Progressive Dysphagia - S/p PEG tube placement yesterday - Start tube feedings per recommendations from dietary - Aspiration Precaution - Pain Management Abdominal Pain S/p PEG Tube Placement - Tylenol marginally cutting her pain level - Start low dose [place] PRN for pain control - Will monitor for side effects Malnutrition with Failure to Thrive - 2/2 Worsening ALS - Dietary consulted to optimize nutritional intake End of Life Care - Patient would benefit with Hospice/Palliative Care - Her overall prognosis with this disease is very poor - Discussed with daughter. Would like to see how next few days go. Chronic: Diabetes Mellitus type 1, Continue Accu-check and SS insulin HTN HLD History of cirrhosis Anxiety/depression Plan: She is stable Continue current treatment [id number] for sustenance until PEG is ready to use in AM - > discontinue Narcotic Pain Meds Dietary consult re: tube feeding in AM DVT/GI prophylaxis: Lovenox SubQ/SCDs and H2B Consult PT/OT as tolerated D/C tomorrow to [facility] pending good tolerance of tube feedings Overall Jessica did ok. PEG tube was placed by Dr. Garcia on 08/31/17 without incident. We had a discussion with CM and the patients daughter about plan of care and prognosis. Daughter is aware Jessica's disease is progressing very rapidly. They would like to see how she does with regular feedings now and at that time they will look into comfort care vs. hospice care. She received her first PEG tube feeding yesterday and tolerated well. Her diabetic medications were held and re-introduced as tube feedings started. THERMAL SURFACING MACHINE OPERATOR evaluated the patient and found rather severe dyspahgia. They recommended pleasure feedings and all the recommendations are noted below. She was having some back and generalized pain which was not resolved with non-opiate medications. Dilaudid was given occasionally. Contacted patients daughter today to update plan and discuss pain control. Discussed how ALS will likely lead to worsening respiratory depression and inability to handle secretions. Discussed how opiate pain medications will also decrease respirations and may make patient more sleepy. Daughter agrees patient should receive opiate pain medications PRN as she has not been very comfortable at times when here. She will be discharged home on PRN norco for pain. Home medications continued thorough the PEG tube. Both daughter and patient are very aware of Jessica's poor prognosis and eventual need for hospice care. - Patient Instructions Diet, Other: PEG tube feedings as below Feeding Instructions: Program Admin recommends bolus feeding of Jevity 1.2 355 ml x 4 feedings per day, 30 ml water flush before and after feeding. She would also need 140 ml flush TID, which could be used as flushes for medications. The total formula use per day is 1420 ml. At daily feeding rate, feeding and flushes would provide 1704 calories, 78 grams of protein, and 1805 ml of water ( 1145 ml from formula and 660 from total flushes). Each bolus feeding would supply 60 grams of carbohydrate. Pleasure feed-honey th liq by spn, pureed food -pref applsauc/cot cheese mix Activity: As Tolerated Driving: Do Not Drive Notify Provider of: Fever, Increased Pain, Nausea and/or Vomiting Other/Special Instructions: -Program Admin recommends bolus feeding of Jevity 1.2 355 ml x 4 feedings per day, 30 ml water flush before and after feeding. She would also need 140 ml flush TID, which could be used as flushes for medications. The total formula use per day is 1420 ml. At daily feeding rate, feeding and flushes would provide 1704 calories, 78 grams of protein, and 1805 ml of water (1145 ml from formula and 660 from total flushes). Each bolus feeding would supply 60 grams of carbohydrate. -Pleasure feed- th liq by spn, pureed food-pref applsauc/cot cheese mix - Discharge Plan *PRESCRIPTION DRUG MONITORING PROGRAM REVIEWED*: No *COPY OF PRESCRIPTION DRUG MONITORING REPORT IN PATIENT BENNIE: No Prescriptions/Med Rec: Acetaminophen/HYDROcodone [[place] 325-5 MG] 1 tab GTUBE Q4H PRN #15 tablet PRN Reason: Pain Home Medications: Home Meds Albuterol [Ventolin HFA] 90 mcg INH QID PRN 06/08/17 [History] Nadolol [Naldol] 10 mg PO DAILY 06/08/17 [History] Spironolactone 50 mg PO DAILY 06/08/17 [History] Hyoscyamine Sulfate [Levsin-Sl] 0.125 mg PO Q4H PRN 08/30/17 [History] Insulin Glargine,Hum.Rec.Anlog [Lantus Solostar] 30 units SQ BID 08/30/17 [ History] Acetaminophen/HYDROcodone [[place] 325-5 MG] 1 tab GTUBE Q4H PRN #15 tablet [Rx] Baclofen 10 mg GTUBE TID PRN #0 09/02/17 [Rx] Dilofenac 50 mg GTUBE BID PRN #0 09/02/17 [Rx] Furosemide [Lasix] 20 mg GTUBE DAILY #0 09/02/17 [Rx] Insulin Aspart [NovoLOG] See Protocol SUBCUT QID PRN #0 09/02/17 [Rx] Lactulose 30 ml GTUBE DAILY #0 09/02/17 [Rx] Lisinopril 20 mg GTUBE DAILY #0 09/02/17 [Rx] Ondansetron HCl [Zofran] 4 mg GTUBE Q6H PRN #0 09/02/17 [Rx] Referrals: Patrice Miranda MD [Primary Care Provider] - - Discharge Summary/Plan Comment DC Time >30 min.: Yes (45 mins) - General Info Date of Service: 09/02/17 Admission Dx/Problem (Free Text: Admission Diagnosis/Problem Admission Diagnosis/Problem Swallowing problem Subjective Update: In to see Jessica. Her daughter is at bedside. Her blood sugar is over 400 so lab has been called. Discussed plan of care with daughter. Patient reports generalized myaglias and mild SOB. She is still on O2. Tube feedings were started and will see how they go prior to discharging patient. Plan is to discharge back to [facility] tomorrow. Functional Status: Reports: Pain Controlled, Tolerating Diet (tube feedings ), Urinating. Denies: Ambulating, New Symptoms - Review of Systems General: Reports: Weakness, Fatigue, Malaise, Other (very sleepy ). Denies: Fever, Chills HEENT: Reports: No Symptoms. Denies: Eye Pain, Sinus Congestion, Sore Throat Pulmonary: Denies: Shortness of Breath, Cough, Sputum, Wheezing Cardiovascular: Denies: Chest Pain, Palpitations, Dyspnea on Exertion Gastrointestinal: Reports: Abdominal Pain (at PEG tube location ). Denies: Constipation, Diarrhea, Nausea, Vomiting Genitourinary: Reports: No Symptoms Musculoskeletal: Reports: Back Pain, Other (general myalgias ) Skin: Reports: No Symptoms Neurological: Reports: No Symptoms, Trouble Speaking, Difficulty Walking, Weakness, Gait Disturbance. Denies: Confusion, Dizziness, Numbness, Seizure, Syncope, Tingling Psychiatric: Reports: No Symptoms - Patient Data Vitals - Most Recent: Last Vital Signs Temp 99.1 F 09/02/17 07:25 Pulse 88 09/02/17 07:25 Resp 20 09/02/17 07:25 BP 116/53 L 09/02/17 07:25 Pulse Ox 94 L 09/02/17 07:25 Weight - Most Recent: 148 lb 3.2 oz I&O - Last 24 hours: Intake & Output 09/01/17 09/02/17 09/02/17 22:59 06:59 14:59 Intake Total 1048 940 Output Total 500 550 Balance 548 390 Lab Results - Last 24 hrs: Laboratory Results - last 24 hr 09/01/17 09/01/17 09/01/17 Range/Units 12:44 16:55 19:44 WBC (3.98-10.04) K/mm3 RBC (3.98-5.22) M/mm3 Hgb (11.2-15.7) gm/L Hct (34.1-44.9) % MCV (79.4-94.8) fl MCH (25.6-32.2) pg MCHC (32.2-35.5) g/dl RDW Std Deviation (36.4-46.3) fL Plt Count (182-369) K/mm3 MPV (9.4-12.3) fl Neut % (Auto) (34.0-71.1) % Lymph % (Auto) (19.3-51.7) % [place] % (Auto) (4.7-12.5) % Eos % (Auto) (0.7-5.8) Baso % (Auto) (0.1-1.2) % Neut # (Auto) (1.56-6.13) K/mm3 Lymph # (Auto) (1.18-3.74) K/mm3 [place] # (Auto) (0.24-0.36) K/mm3 Eos # (Auto) (0.04-0.36) K/mm3 Baso # (Auto) (0.01-0.08) K/mm3 Manual Slide Review Sodium (136-145) mEq/L Potassium (3.5-5.1) mEq/L Chloride (98-107) mEq/L Carbon Dioxide (21-32) mEq/L Anion Gap (5-15) BUN (7-18) mg/dL Creatinine (0.55-1.02) mg/dL Est Cr Clr Drug Dosing mL/min Estimated GFR (MDRD) (>60) mL/min BUN/Creatinine Ratio (14-18) Glucose 428 H (80-115) mg/dL POC Glucose 233 H 347 H (80-115) mg/dL Calcium (8.5-10.1) mg/dL Magnesium (1.8-2.4) mg/dl 09/01/17 09/02/17 09/02/17 Range/Units 22:07 05:45 05:45 WBC 5.52 (3.98-10.04) K/mm3 RBC 3.32 L (3.98-5.22) M/mm3 Hgb 10.9 L (11.2-15.7) gm/L Hct 31.1 L (34.1-44.9) % MCV 93.7 (79.4-94.8) fl MCH 32.8 H (25.6-32.2) pg MCHC 35.0 (32.2-35.5) g/dl RDW Std Deviation 46.1 (36.4-46.3) fL Plt Count 57 L (182-369) K/mm3 MPV 9.9 (9.4-12.3) fl Neut % (Auto) 63.4 (34.0-71.1) % Lymph % (Auto) 26.6 (19.3-51.7) % [place] % (Auto) 8.2 (4.7-12.5) % Eos % (Auto) 1.6 (0.7-5.8) Baso % (Auto) 0.2 (0.1-1.2) % Neut # (Auto) 3.50 (1.56-6.13) K/mm3 Lymph # (Auto) 1.47 (1.18-3.74) K/mm3 [place] # (Auto) 0.45 H (0.24-0.36) K/mm3 Eos # (Auto) 0.09 (0.04-0.36) K/mm3 Baso # (Auto) 0.01 (0.01-0.08) K/mm3 Manual Slide Review Abnormal smear Sodium 135 L (136-145) mEq/L Potassium 4.0 (3.5-5.1) mEq/L Chloride 102 (98-107) mEq/L Carbon Dioxide 26 (21-32) mEq/L Anion Gap 11.0 (5-15) BUN 12 (7-18) mg/dL Creatinine 0.7 (0.55-1.02) mg/dL Est Cr Clr Drug Dosing 82.07 mL/min Estimated GFR (MDRD) > 60 (>60) mL/min BUN/Creatinine Ratio 17.1 (14-18) Glucose 347 H (80-115) mg/dL POC Glucose 369 H (80-115) mg/dL Calcium 8.3 L (8.5-10.1) mg/dL Magnesium 1.4 L (1.8-2.4) mg/dl 09/02/17 Range/Units 06:26 WBC (3.98-10.04) K/mm3 RBC (3.98-5.22) M/mm3 Hgb (11.2-15.7) gm/L Hct (34.1-44.9) % MCV (79.4-94.8) fl MCH (25.6-32.2) pg MCHC (32.2-35.5) g/dl RDW Std Deviation (36.4-46.3) fL Plt Count (182-369) K/mm3 MPV (9.4-12.3) fl Neut % (Auto) (34.0-71.1) % Lymph % (Auto) (19.3-51.7) % [place] % (Auto) (4.7-12.5) % Eos % (Auto) (0.7-5.8) Baso % (Auto) (0.1-1.2) % Neut # (Auto) (1.56-6.13) K/mm3 Lymph # (Auto) (1.18-3.74) K/mm3 [place] # (Auto) (0.24-0.36) K/mm3 Eos # (Auto) (0.04-0.36) K/mm3 Baso # (Auto) (0.01-0.08) K/mm3 Manual Slide Review Sodium (136-145) mEq/L Potassium (3.5-5.1) mEq/L Chloride (98-107) mEq/L Carbon Dioxide (21-32) mEq/L Anion Gap (5-15) BUN (7-18) mg/dL Creatinine (0.55-1.02) mg/dL Est Cr Clr Drug Dosing mL/min Estimated GFR (MDRD) (>60) mL/min BUN/Creatinine Ratio (14-18) Glucose (80-115) mg/dL POC Glucose 359 H (80-115) mg/dL Calcium (8.5-10.1) mg/dL Magnesium (1.8-2.4) mg/dl Med Orders - Current: Current Medications Acetaminophen (Tylenol) 650 mg RECTAL Q6H PRN PRN Reason: Pain/Fever Hydrocodone Bitart/Acetaminophen ([place] 325-5 Mg) 1 tab GTUBE Q4H PRN PRN Reason: Pain Albuterol/Ipratropium (Duoneb 3.0-0.5 Mg/3 Ml) 3 ml NEB QID PRN PRN Reason: Shortness of Breath Baclofen (Lioresal) 10 mg PO TID PRN PRN Reason: muscle spasm Dextrose/Water (Dextrose 50% In Water) 50 ml IVPUSH ASDIRECTED PRN PRN Reason: Hypoglycemia Enoxaparin Sodium (Lovenox) 40 mg SUBCUT BEDTIME LOLIS Last Admin: 09/01/17 21:07 Dose: Not Given Famotidine (Pepcid) 20 mg GTUBE BID [facility] Furosemide (Lasix) 20 mg PO DAILY [facility] Hydralazine HCl (Apresoline) 20 mg IVPUSH Q6H PRN PRN Reason: Hypertension Hydromorphone HCl (Dilaudid) 0.5 mg IVPUSH Q4H PRN PRN Reason: Pain Last Admin: 09/01/17 21:14 Dose: 0.5 mg Hyoscyamine (Hyomax-Sl) 0.125 mg SL Q4H PRN PRN Reason: Other Magnesium Sulfate 4 gm/ Premix 100 mls @ 50 mls/hr IV ONETIME ONE Stop: 09/02/17 10:29 Insulin Aspart (Novolog) 0 unit SUBCUT QIDACANDBED [facility]; Protocol Last Admin: 09/01/17 22:09 Dose: 10 units Insulin Detemir (Levemir) 30 unit SUBCUT BID [facility] Lactulose (Cephulac) 20 gm PO DAILY [facility] Lisinopril (Prinivil) 20 mg PO DAILY [facility] Lorazepam (Ativan) 0.5 mg IVPUSH Q6H PRN PRN Reason: Anxiety Last Admin: 09/01/17 22:19 Dose: 0.5 mg Magnesium Sulfate (Pharmacy To Dose - Magnesium Replacement) 1 dose .XX ASDIRECTED [facility] Metoprolol Tartrate (Lopressor) 5 mg IVPUSH Q6H PRN PRN Reason: heart rate>120 Nadolol (Naldol) 10 mg PO DAILY [facility] Non-Formulary Medication (Insulin Glarg,Human.Rec.Analog) 10 units SQ ASDIRECTED [facility] Ondansetron HCl (Zofran) 4 mg IVPUSH Q4H PRN PRN Reason: Nausea Last Admin: 08/31/17 13:41 Dose: 4 mg Ondansetron HCl (Zofran Odt) 4 mg GTUBE Q6H PRN PRN Reason: NAUSEA Potassium Chloride (Pharmacy To Dose - Potassium Replacement) 1 dose .XX ASDIRECTED [facility] Sodium Chloride (Saline Flush) 10 ml FLUSH ASDIRECTED PRN PRN Reason: Keep Vein Open Last Admin: 08/29/17 17:11 Dose: 10 ml Spironolactone (Aldactone) 50 mg PO DAILY [facility] Sulindac (Clinoril) 150 mg PO BID PRN PRN Reason: Pain Discontinued Medications Hydrocodone Bitart/Acetaminophen ([place] 325-5 Mg) 1 tab PO Q4H PRN PRN Reason: Pain Albuterol (Proventil Neb Soln) 2.5 mg NEB ONETIME ONE Stop: 08/31/17 08:01 Last Admin: 08/31/17 07:55 Dose: 2.5 mg Famotidine (Pepcid) 20 mg PO BID [facility] Last Admin: 09/01/17 21:07 Dose: 20 mg Fentanyl (Sublimaze) Confirm Administered Dose 100 mcg .ROUTE .STK-MED ONE Stop: 08/31/17 08:23 Glycopyrrolate () Confirm Administered Dose 1 mg .ROUTE .STK-MED ONE Stop: 08/31/17 08:22 Hyoscyamine (Hyomax-Sl) 0.125 mg PO Q4H PRN PRN Reason: Other Sodium Chloride (Normal Saline) 1,000 mls @ 100 mls/hr IV ONETIME ONE Stop: 08/30/17 02:38 Last Admin: 08/29/17 17:11 Dose: 100 mls/hr Dextrose/Sodium Chloride (Dextrose 5%-Normal Saline) 1,000 mls @ 100 mls/hr IV ASDIRECTED [facility] Last Admin: 09/01/17 06:38 Dose: 100 mls/hr Magnesium Sulfate 4 gm/ Premix 100 mls @ 300 mls/hr IV ONETIME ONE Stop: 08/30/17 11:31 Magnesium Sulfate/Dextrose 1 (gm/ Premix) 100 mls @ 100 mls/hr IV Q1H [facility] Stop: 08/30/17 15:29 Last Admin: 08/30/17 15:02 Dose: 100 mls/hr Levofloxacin/Dextrose 750 mg/ (Premix) 150 mls @ 100 mls/hr IV Q24H [facility] Last Admin: 08/30/17 17:22 Dose: 100 mls/hr Lidocaine HCl (Xylocaine-Mpf 1%) Confirm Administered Dose 6 mls @ as directed .ROUTE .STK-MED ONE Stop: 08/31/17 08:22 Lidocaine HCl (Xylocaine-Mpf 1%) Confirm Administered Dose 2 mls @ as directed .ROUTE .STK-MED ONE Stop: 08/31/17 08:48 Lidocaine HCl (Xylocaine-Mpf 1%) Confirm Administered Dose 2 mls @ as directed .ROUTE .STK-MED ONE Stop: 08/31/17 09:48 Magnesium Sulfate 2 gm/ Premix 50 mls @ 50 mls/hr IV ONETIME ONE Stop: 08/31/17 12:14 Last Admin: 08/31/17 12:37 Dose: 50 mls/hr Magnesium Sulfate 4 gm/ Premix 100 mls @ 50 mls/hr IV ONETIME ONE Stop: 09/01/17 09:59 Last Admin: 09/01/17 08:52 Dose: 50 mls/hr Insulin Aspart (Novolog) 0 unit SUBCUT QIDACANDBED [facility]; Protocol Last Admin: 09/01/17 12:50 Dose: 2 units Ketorolac Tromethamine (Toradol) 15 mg IVPUSH ONETIME ONE Stop: 08/29/17 17:18 Last Admin: 08/29/17 17:22 Dose: 15 mg Midazolam HCl (Versed 1 Mg/Ml) Confirm Administered Dose 2 mg .ROUTE .STK-MED ONE Stop: 08/31/17 08:23 Ondansetron HCl (Zofran Odt) 4 mg PO Q6H PRN PRN Reason: NAUSEA Propofol (Diprivan 20 Ml) Confirm Administered Dose 200 mg .ROUTE .STK-MED ONE Stop: 08/31/17 08:22 - Exam Quality Assessment: Reports: DVT Prophylaxis General: Reports: Alert, Oriented, Cooperative, No Acute Distress, Other (very sleepy) HEENT: Reports: Pupils Equal, Pupils Reactive, EOMI, Mucous Membr. Moist/[place] Neck: Reports: Supple, Trachea Midline, No JVD Lungs: Reports: Normal Respiratory Effort, Decreased Breath Sounds Cardiovascular: Reports: Regular Rate, Regular Rhythm, No Murmurs GI/Abdominal Exam: Normal Bowel Sounds, Soft, Non-Tender, No Distention, Pelvis Stable (Female) Exam: Deferred Rectal (Female) Exam: Deferred Extremities: Normal Inspection, Non-Tender, No Pedal Edema, Normal Capillary Refill, Limited Range of Motion Skin: Reports: Warm, Dry, Intact Wound/Incisions: Reports: Healing Well, Dressing Dry and Intact, No Drainage Neurological: Reports: No New Focal Deficit Psy/Mental Status: Reports: Alert, Normal Affect, Normal Mood
[2017-09-02] MEDS ORDERED: Lisinopril 20 MG Tab PO SCH (09:00)
[2017-09-02] MEDS ORDERED: Lactulose Soln 10 GM/15 ML 30 ML UD Cup PO SCH (09:00)
[2017-09-02] MEDS ORDERED: Spironolactone 25 MG Tab PO SCH (09:00)
[2017-09-02] MEDS ORDERED: Insulin Detemir 100 Units/ML 3 ML Pen SUBCUT SCH (09:00)
[2017-09-02] MEDS ORDERED: Furosemide 20 MG Tab PO SCH (09:00)
[2017-09-02] MEDS: Insulin Aspart 100 Units/ML 3 ML Pen SUBCUT SCH ×2 (09:22→12:27)
[2017-09-02] MEDS: HYDROmorphone 0.5 MG/0.5 ML SYRINGE IVPUSH PRN (10:24)
== END 2017-09-02 14:49 ==
LOC: JD.ED 14:22 → JD.MS 19:58
PROVIDERS: ADMIT Internal Medicine Cardiovascular Disease; ATTEND Internal Medicine Cardiovascular Disease
DX: R13.10 Dysphagia, unspecified (principal); E43 Unspecified severe protein-calorie malnutrition; G12.21 Amyotrophic lateral sclerosis; I10 Essential (primary) hypertension; E11.9 Type 2 diabetes mellitus without complications; J44.9 Chronic obstructive pulmonary disease, unspecified; E78.5 Hyperlipidemia, unspecified; K75.81 Nonalcoholic steatohepatitis (NASH); F41.9 Anxiety disorder, unspecified; F32.9 Major depressive disorder, single episode, unspecified; Z79.4 Long term (current) use of insulin; Z79.899 Other long term (current) drug therapy
CPT/HCPCS: 36415; 43246; 51702; 71045; 71046; 80048; 80053; 82140; 82947; 82962; 83605; 83735; 85025; 85610; 85730; 86140; 87641; 92610; 94640; 94760; 96361; 96374; 99285; A9270; J1170; J1815; J1885; J1956; J2001; J2060; J2250; J2405; J3010; J3475; J7040; J7042; J7050; 96365; 96366; 96367; 96375; 96376; 99284; G0378; J2704

== ENCOUNTER 2017-09-02 21:16 | Emergency (ER) | payer BC, OTHER ==
--- NOTE | 2017-09-02 22:00 | EDM.PDOC ---
ED HPI GENERAL MEDICAL PROBLEM - General Chief Complaint: Respiratory Problem Stated Complaint: [facility] Time Seen by Provider: 09/02/17 22:00 - History of Present Illness INITIAL COMMENTS - FREE TEXT/NARRATIVE: 61-year-old female returns emergency room with worsening shortness of breath. Patient has advancing ALS. She was discharged from the hospital today and apparently she does not have an order for oxygen so she was sent to the emergency room. Patient was off oxygen for a while at the care home became quite short of breath when oxygen was restarted she did much better she was transferred here doing well. Patient was discharged from this hospital today to the senior living facility anticipating hospice. - Related Data Allergies Allergy/AdvReac Type Severity Reaction Status Date / Time No Known Allergies Allergy Verified 09/02/17 21:17 Home Meds: Home Meds Albuterol [Ventolin HFA] 2 puff INH QID PRN 06/08/17 [History] Nadolol [Naldol] 10 mg PO DAILY 06/08/17 [History] Spironolactone 50 mg PO DAILY 06/08/17 [History] Hyoscyamine Sulfate [Levsin-Sl] 0.125 mg PO Q4H PRN 08/30/17 [History] Insulin Glargine,Hum.Rec.Anlog [Lantus Solostar] 30 units SQ BID 08/30/17 [ History] Acetaminophen/HYDROcodone [Tuthill 325-5 MG] 1 tab GTUBE Q4H PRN #15 tablet [Rx] Baclofen 10 mg GTUBE TID PRN #0 09/02/17 [Rx] Dilofenac 50 mg GTUBE BID PRN #0 09/02/17 [Rx] Furosemide [Lasix] 20 mg GTUBE DAILY #0 09/02/17 [Rx] Insulin Aspart [NovoLOG] See Protocol SUBCUT QID PRN #0 09/02/17 [Rx] LORazepam [Ativan] 0.5 mg PO Q6H PRN #60 tab 09/02/17 [Rx] Lactulose 30 ml GTUBE DAILY #0 09/02/17 [Rx] Lisinopril 20 mg GTUBE DAILY #0 09/02/17 [Rx] Ondansetron HCl [Zofran] 4 mg GTUBE Q6H PRN #0 09/02/17 [Rx] Past Medical History HEENT History: Reports: Allergic Rhinitis Cardiovascular History: Reports: Arrhythmia, High Cholesterol, Hypertension, Other (See Below) Other Cardiovascular History: PSVT Respiratory History: Reports: Asthma, Other (See Below) Other Respiratory History: ALS Gastrointestinal History: Reports: Cirrhosis, Other (See Below) Other Gastrointestinal History: PEG tube Genitourinary History: Reports: Urinary Incontinence, Other (See Below) Other Genitourinary History: 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: Musculoskeletal History: Reports: Arthritis, Fracture Other Musculoskeletal History: avulsion fracture left ankle Neurological History: Reports: Other (See Below) Other Neuro History: ALS Psychiatric History: Reports: Anxiety, Depression Endocrine/Metabolic History: Reports: Diabetes, Type II Oncologic (Cancer) History: Reports: Breast - Infectious Disease History Infectious Disease History: Reports: Chicken Pox, Influenza, Measles - Past Surgical History HEENT Surgical History: Reports: LASIK, Other (See Below) GI Surgical History: Reports: Cholecystectomy Female Surgical History: Reports: Breast Reconstruction, Hysterectomy, Mastectomy Neurological Surgical History: Reports: C-Spine, Lumbar Spine Social & Family History - Family History Family Medical History: Noncontributory - Tobacco Use Smoking Status *Q: Never Smoker - Caffeine Use Caffeine Use: Reports: Tea Other Caffeine Use: pt reports that she used to drink one cup of coffee/day but now is not going to be able to she reports - Recreational Drug Use Recreational Drug Use: No - Living Situation & Occupation Living situation: Reports: , with Family Occupation: Unemployed ED ROS GENERAL - Review of Systems Review Of Systems: See Below Constitutional: Reports: No Symptoms HEENT: Reports: No Symptoms Respiratory: Reports: Shortness of Breath. Denies: Hemoptysis Cardiovascular: Reports: No Symptoms Endocrine: Reports: No Symptoms GI/Abdominal: Reports: Other (She has frequent aspirations and recently had a PEG tube placed) : Reports: No Symptoms ED EXAM, GENERAL - Physical Exam Exam: See Below Exam Limited By: Other (Medication is slow she uses a board to write on but quite understandable) General Appearance: No Apparent Distress, Mild Distress Head: Atraumatic, Normocephalic Neck: Normal Inspection, Supple, Non-Tender, Full Range of Motion Respiratory/Chest: No Respiratory Distress, Decreased Breath Sounds (Decreased breath sounds in the bases) Cardiovascular: Regular Rate, Rhythm, No Edema, No Murmur Course - Vital Signs Last Recorded V/S: Last Vital Signs Temp 37.0 C 09/02/17 21:17 Pulse 95 09/02/17 21:17 Resp 24 H 09/02/17 21:17 BP 142/79 H 09/02/17 21:17 Pulse Ox 98 09/02/17 21:17 - Orders/Labs/Meds Orders: Active Orders 24 hr Category Date Time Status Chest 1V Frontal [CR] Stat Exams 09/02/17 21:35 Taken Meds: Medications Discontinued Medications Generic Name Dose Route Start Last Admin Trade Name Freq PRN Reason Stop Dose Admin Lorazepam 0.5 mg 09/02/17 23:02 09/02/17 23:16 Ativan GTUBE 09/02/17 23:03 0.5 mg ONETIME ONE Administration - Re-Assessments/Exams Free Text/Narrative Re-Assessment/Exam: 09/02/17 23:23 Chest x-ray showed increasing atelectasis or cannot necessarily exclude an infiltrate in her right base. Had radiology look at this they agreed discussed that with the patient and family they do not want antibiotics at this point. She seems to have some improvement with Ativan but it causes some sedation I don 't see Ativan her current medications will add Ativan 0.5 4 times a day and this can be titrated by her regular we'll put an order in for oxygen this is can have to be redone by her primary physician Departure - Departure Time of Disposition: 23:24 Disposition: DC/Tfer to [facility] Clinical Impression: Shortness of breath, ALS (amyotrophic lateral sclerosis) - Discharge Information Prescriptions: LORazepam [Ativan] 0.5 mg PO Q6H PRN #60 tab PRN Reason: Anxiety Forms: ED Department Discharge Additional Instructions: Use oxygen titrate greater than 90-92%. Use Ativan as needed for anxiety. Discuss with her regular physician titrate as needed. - My Orders Last 24 Hours: My Active Orders 09/02/17 21:35 Chest 1V Frontal [CR] Stat - Assessment/Plan Last 24 Hours: My Active Orders 09/02/17 21:35 Chest 1V Frontal [CR] Stat
[2017-09-02] MEDS ORDERED: LORazepam 0.5 MG Tab GTUBE ONE (23:02)
--- NOTE | 2017-09-03 09:26 | CR ---
Chest: Portable view of the chest was obtained. Comparison: Prior chest x-ray of 09/01/17. Probable small pleural effusions as well as bibasilar atelectasis is noted. Low lung volumes are noted. Previous cervical spine surgery is noted. Heart size is not enlarged. Bony structures are grossly intact. Previous cholecystectomy is noted. Impression: 1. Probable small pleural effusions as well as bibasilar atelectasis. Difficult to exclude bibasilar pneumonia. Findings have worsened from previous exam. Diagnostic code #3 I agree with preliminary report issued by [facility] ([facility] preliminary report dictated on 09/02/17, 11:44 PM Central Time)
== END 2017-09-03 00:20 ==
LOC: JD.ED 21:16
DX: G12.21 Amyotrophic lateral sclerosis (principal); E78.00 Pure hypercholesterolemia, unspecified; I10 Essential (primary) hypertension; E11.9 Type 2 diabetes mellitus without complications; Z79.899 Other long term (current) drug therapy; Z79.4 Long term (current) use of insulin
CPT/HCPCS: 71045; 99285; A9270

== ENCOUNTER 2017-09-07 17:19 | Emergency (ER) | payer BC, OTHER ==
[2017-09-07] MEDS ORDERED: Sodium Chloride 0.9% 10 ML Syringe FLUSH PRN (17:40)
[2017-09-07] MEDS ORDERED: Sodium Chloride 0.9% 500 ML IV ONE (17:50)
[2017-09-07] MEDS ORDERED: HYDROmorphone 0.5 MG/0.5 ML SYRINGE IVPUSH ONE (17:50)
[2017-09-07] MEDS ORDERED: Ondansetron 4 MG/2 ML SDV IVPUSH ONE (17:50)
--- NOTE | 2017-09-07 18:16 | EDM.PDOC ---
ED HPI GENERAL MEDICAL PROBLEM - General Chief Complaint: Abdominal Pain Stated Complaint: [facility] Time Seen by Provider: 09/07/17 17:39 Source of Information: Reports: Patient, EMS, [facility] Records, RN Notes Reviewed - History of Present Illness INITIAL COMMENTS - FREE TEXT/NARRATIVE: 61 year old female sent over from [facility] for eval of upper abd pain. This has apparently worsened over the past day or 2. She has ALS, had a g-tube placed 1 week ago in [place]. No hx of fever. No chest pain or difficulty breathing. Some nausea, no vomiting. Upper Abdomen Pain Score (Numeric/FACES): 8 - Related Data Allergies Allergy/AdvReac Type Severity Reaction Status Date / Time No Known Allergies Allergy Verified 09/02/17 21:17 Home Meds: Home Meds Albuterol [Ventolin HFA] 2 puff INH QID PRN 06/08/17 [History] Nadolol [Naldol] 10 mg PO DAILY 06/08/17 [History] Spironolactone 50 mg PO DAILY 06/08/17 [History] Hyoscyamine Sulfate [Levsin-Sl] 0.125 mg PO Q4H PRN 08/30/17 [History] Insulin Glargine,Hum.Rec.Anlog [Lantus Solostar] 30 units SQ BEDTIME 08/30/17 [ History] Baclofen 10 mg GTUBE TID PRN #0 09/02/17 [Rx] Furosemide [Lasix] 20 mg GTUBE DAILY #0 09/02/17 [Rx] Insulin Aspart [NovoLOG] See Protocol SUBCUT QID PRN #0 09/02/17 [Rx] LORazepam [Ativan] 0.5 mg PO Q6H PRN #60 tab 09/02/17 [Rx] Lactulose 30 ml GTUBE DAILY #0 09/02/17 [Rx] Lisinopril 20 mg GTUBE DAILY #0 09/02/17 [Rx] Ondansetron HCl [Zofran] 4 mg GTUBE Q6H PRN #0 09/02/17 [Rx] Acetaminophen/HYDROcodone [Wildwood 325-5 MG] 5 - 325 mg GTUBE Q4H PRN 09/07/17 [ History] Diclofenac Sodium [Voltaren] 50 mg PO BID PRN 09/07/17 [History] Lactose-Reduced Food/Fiber [Jevity 1 Sanjeev Liquid] 284 ml GTUBE 5XDAY 09/07/17 [ History] Levofloxacin [Levaquin] 750 mg PO DAILY 09/07/17 [History] Past Medical History HEENT History: Reports: Allergic Rhinitis Cardiovascular History: Reports: Arrhythmia, High Cholesterol, Hypertension, Other (See Below) Other Cardiovascular History: PSVT Respiratory History: Reports: Asthma, Other (See Below) Other Respiratory History: ALS Gastrointestinal History: Reports: Cirrhosis, Other (See Below) Other Gastrointestinal History: PEG tube Genitourinary History: Reports: Urinary Incontinence, Other (See Below) Other Genitourinary History: Indwelling 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: Musculoskeletal History: Reports: Arthritis, Fracture Other Musculoskeletal History: avulsion fracture left ankle Neurological History: Reports: Other (See Below) Other Neuro History: ALS Psychiatric History: Reports: Anxiety, Depression Endocrine/Metabolic History: Reports: Diabetes, Type II Oncologic (Cancer) History: Reports: Breast - Infectious Disease History Infectious Disease History: Reports: Chicken Pox, Influenza, Measles - Past Surgical History HEENT Surgical History: Reports: LASIK, Other (See Below) GI Surgical History: Reports: Cholecystectomy Female Surgical History: Reports: Breast Reconstruction, Hysterectomy, Mastectomy Neurological Surgical History: Reports: C-Spine, Lumbar Spine Social & Family History - Family History Family Medical History: Noncontributory - Tobacco Use Smoking Status *Q: Never Smoker - Caffeine Use Caffeine Use: Reports: None Other Caffeine Use: pt reports that she used to drink one cup of coffee/day but now is not going to be able to she reports - Recreational Drug Use Recreational Drug Use: No - Living Situation & Occupation Living situation: Reports: , with Family Occupation: Unemployed ED ROS GENERAL - Review of Systems Review Of Systems: Unable To Obtain (Pt is no longer able to verbalize in a normal way, she does make speech effort, nods her head yes and no, difficult to get accurate or complete ROS) HEENT: Reports: No Symptoms Respiratory: Denies: Shortness of Breath, Cough Cardiovascular: Denies: Chest Pain GI/Abdominal: Reports: Abdominal Pain (upper abd), Nausea. Denies: Vomiting Skin: Denies: Rash ED EXAM, GI/ABD - Physical Exam Exam: See Below General Appearance: Alert, Mild Distress Eyes: Bilateral: Normal Appearance Throat/Mouth: Other (oral mucosa very dry) Neck: Supple Respiratory/Chest: No Respiratory Distress, Lungs Clear, Normal Breath Sounds Cardiovascular: Regular Rate, Rhythm GI/Abdominal Exam: Soft, Tender (upper abd around g tube), Other (lower abd soft and nontender). No: Guarding Back Exam: No: CVA Tenderness (L), CVA Tenderness (R) Neurological: Alert Skin Exam: Warm, Dry, Normal Color Course - Vital Signs Last Recorded V/S: Last Vital Signs Temp 97.9 F 09/07/17 17:24 Pulse 85 09/07/17 20:36 Resp 18 09/07/17 20:36 BP 118/46 L 09/07/17 20:36 Pulse Ox 99 09/07/17 20:36 - Orders/Labs/Meds Orders: Active Orders 24 hr Category Date Time Status Peripheral IV Care [RC] . DIRECTED Care 09/07/17 17:41 Active Abdomen 2V AP Flat Upright [CR] Stat Exams 09/07/17 18:11 Taken Sodium Chloride 0.9% [Saline Flush] Med 09/07/17 17:40 Active 10 ml FLUSH ASDIRECTED PRN Peripheral IV Insertion Adult [OM.PC] Stat Oth 09/07/17 17:41 Ordered Medication Orders Sodium Chloride (Saline Flush) 10 ml FLUSH ASDIRECTED PRN PRN Reason: Keep Vein Open Last Admin: 09/07/17 18:10 Dose: 10 ml Labs: Laboratory Tests 09/07/17 09/07/17 Range/Units 17:57 17:57 WBC 7.57 (3.98-10.04) K/mm3 RBC 3.82 L (3.98-5.22) M/mm3 Hgb 12.5 (11.2-15.7) gm/L Hct 35.2 (34.1-44.9) % MCV 92.1 (79.4-94.8) fl MCH 32.7 H (25.6-32.2) pg MCHC 35.5 (32.2-35.5) g/dl RDW Std Deviation 44.3 (36.4-46.3) fL Plt Count 95 L (182-369) K/mm3 MPV 8.4 L (9.4-12.3) fl Neut % (Auto) 76.5 H (34.0-71.1) % Lymph % (Auto) 12.3 L (19.3-51.7) % Hunt % (Auto) 9.5 (4.7-12.5) % Eos % (Auto) 1.3 (0.7-5.8) Baso % (Auto) 0.3 (0.1-1.2) % Neut # (Auto) 5.79 (1.56-6.13) K/mm3 Lymph # (Auto) 0.93 L (1.18-3.74) K/mm3 Hunt # (Auto) 0.72 H (0.24-0.36) K/mm3 Eos # (Auto) 0.10 (0.04-0.36) K/mm3 Baso # (Auto) 0.02 (0.01-0.08) K/mm3 Manual Slide Review Normal smear Sodium 138 (136-145) mEq/L Potassium 3.8 (3.5-5.1) mEq/L Chloride 101 (98-107) mEq/L Carbon Dioxide 29 (21-32) mEq/L Anion Gap 11.8 (5-15) BUN 14 (7-18) mg/dL Creatinine 0.7 (0.55-1.02) mg/dL Est Cr Clr Drug Dosing 82.07 mL/min Estimated GFR (MDRD) > 60 (>60) mL/min BUN/Creatinine Ratio 20.0 H (14-18) Glucose 223 H (80-115) mg/dL Calcium 9.3 (8.5-10.1) mg/dL Total Bilirubin 2.0 H (0.2-1.0) mg/dL AST 36 (15-37) U/L ALT 45 (14-59) U/L Alkaline Phosphatase 170 H (46-116) U/L Total Protein 7.3 (6.4-8.2) g/dl Albumin 2.9 L (3.4-5.0) g/dl Globulin 4.4 gm/dL Albumin/Globulin Ratio 0.7 L (1-2) Lipase 162 (73-393) U/L Meds: Medications Generic Name Dose Route Start Last Admin Trade Name Freq PRN Reason Stop Dose Admin Sodium Chloride 10 ml 09/07/17 17:40 09/07/17 18:10 Saline Flush FLUSH 10 ml ASDIRECTED PRN Administration Keep Vein Open Discontinued Medications Generic Name Dose Route Start Last Admin Trade Name Maye PRN Reason Stop Dose Admin Hydromorphone HCl 0.5 mg 09/07/17 17:50 09/07/17 18:09 Dilaudid IVPUSH 09/07/17 17:51 0.5 mg ONETIME ONE Administration Sodium Chloride 500 mls @ 999 mls/hr 09/07/17 17:50 09/07/17 18:06 Normal Saline IV 09/07/17 18:20 999 mls/hr .BOLUS ONE Administration Ondansetron HCl 4 mg 09/07/17 17:50 09/07/17 18:09 Zofran IVPUSH 09/07/17 17:51 4 mg ONETIME ONE Administration - Re-Assessments/Exams Free Text/Narrative Re-Assessment/Exam: 09/07/17 20:24 WBC, other labs all relatively nl. Flat and lat decub do not show any major dilitation. there is increased stool in the colon. Pt states she has been constipated. The flushes, there was a small clot the first time aspirated, the 2nd time no blood or clots. Tube flushed easily. Will suggest miralax daily as needed, discharge instr. as documented. Departure - Departure Time of Disposition: 20:26 Disposition: DC/[facility] to [facility] Condition: Fair Clinical Impression: Abdominal pain Qualifiers: Abdominal location: upper abdomen, unspecified Qualified Code(s): R10.10 - Upper abdominal pain, unspecified Constipation Qualifiers: Constipation type: unspecified constipation type Qualified Code(s): K59.00 - Constipation, unspecified - Discharge Information Instructions: Constipation, Adult, Abdominal Pain, Adult, [id number] Referrals: Patrice Miranda MD [Primary Care Provider] - Forms: ED Department Discharge Additional Instructions: Labs and X rays area relatively normal, the tube flushed easily, there was a small clot present that cleared. There is increased stool in the colon, patient reports constipation. Suggest start miralax 17 gram dose daily through the tube. Call Dr Cha for further orders or advice as needed. Return to ED as needed if symptoms worsening in any way. - My Orders Last 24 Hours: My Active Orders 09/07/17 17:40 Sodium Chloride 0.9% [Saline Flush] 10 ml FLUSH ASDIRECTED PRN 09/07/17 17:41 Peripheral IV Care [RC] . DIRECTED Peripheral IV Insertion Adult [OM.PC] Stat 09/07/17 18:11 Abdomen 2V AP Flat Upright [CR] Stat - Assessment/Plan Last 24 Hours: My Active Orders 09/07/17 17:40 Sodium Chloride 0.9% [Saline Flush] 10 ml FLUSH ASDIRECTED PRN 09/07/17 17:41 Peripheral IV Care [RC] . DIRECTED Peripheral IV Insertion Adult [OM.PC] Stat 09/07/17 18:11 Abdomen 2V AP Flat Upright [CR] Stat
--- NOTE | 2017-09-08 10:01 | CR ---
Abdomen: Supine and decubitus views of the abdomen were obtained. Comparison: No prior abdominal x-ray. Surgical clips are seen from prior cholecystectomy. Gastrostomy tube is noted. Bowel gas pattern is normal. No free air is seen. Bony structures are unremarkable. Surgical clips are also seen within the pelvis. Impression: 1. Incidental findings as noted above. Nothing acute is seen on two-view abdominal x-ray. Diagnostic code #2
== END 2017-09-07 20:55 ==
LOC: JD.ED 17:19 → SUPCPDRO 17:19 → JD.ED 20:55
DX: K59.00 Constipation, unspecified (principal); E78.00 Pure hypercholesterolemia, unspecified; I10 Essential (primary) hypertension; E11.9 Type 2 diabetes mellitus without complications; Z79.899 Other long term (current) drug therapy; Z79.4 Long term (current) use of insulin
CPT/HCPCS: 36415; 74019; 80053; 83690; 85025; 96361; 96374; 96375; 99285; J1170; J2405; J7040; J7050; 99284

== ENCOUNTER 2017-09-12 20:44 | Emergency (ER) | payer BC, OTHER ==
[2017-09-12] MEDS ORDERED: Ondansetron 4 MG/2 ML SDV IVPUSH ONE (21:07)
--- NOTE | 2017-09-12 21:10 | EDM.PDOC ---
ED HPI GENERAL MEDICAL PROBLEM - General Chief Complaint: Abdominal Pain Stated Complaint: [facility] Time Seen by Provider: 09/12/17 21:05 Source of Information: Reports: Patient (via sign board), Snf Records History Limitations: Reports: Other (she is non verbal due to ALS. ) - History of Present Illness INITIAL COMMENTS - FREE TEXT/NARRATIVE: 61-year-old female with amyotrophic lateral sclerosis attends the ED at the request of her primary care physician. She currently residing in a local [facility]. She has such severe trouble swallowing that a G-tube was placed on her stomach about 12 days ago. Started to experience severe pain with attempts at Jevity feeding about 5 days ago. She reports that the tube got yanked on pretty heavily by nursing staff about 5 days ago and since then every attempt to give her any fluids or medicine through her G-tube is extremely painful. Today they only gave her 100 mils of feeding about an hour ago when she made him stop because she felt like he was going to throw up. It appears that her bowels are not working well either. Last, was reported to be 4 days ago. He was seen in the ED [address] Juarez labs at that time were normal. Increased stool in the colon was appreciated on x-ray. Onset: Gradual, Other Onset Date: 09/01/17 Duration: Day(s): Location: Reports: Abdomen (Upper abdominal pain worsened with feedings to through her G-tube. Increased saliva and phlegm as well reported. Is not able to clear her secretions. Therefore pills in her mouth. Associated nausea most of the time but worse after feedings.) Quality: Reports: Same as Previous Episode Severity: Moderate Improves with: Reports: Other Worsens with: Reports: Other (Nothing seems to make it better . Feeding her makes her much worse.) Context: Reports: Other (Bedridden due to ALS.). Denies: Activity, Exercise, Lifting, Sick Contact, Trauma Associated Symptoms: Reports: Loss of Appetite, Nausea/Vomiting, Other. 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 (see below) (Only her usual meds) - Related Data Allergies Allergy/AdvReac Type Severity Reaction Status Date / Time No Known Allergies Allergy Verified 09/12/17 21:29 Home Meds: Home Meds Albuterol [Ventolin HFA] 2 puff INH QID PRN 06/08/17 [History] Hyoscyamine Sulfate [Levsin-Sl] 0.125 mg PO Q4H PRN 08/30/17 [History] Insulin Glargine,Hum.Rec.Anlog [Lantus Solostar] 30 units SQ BID 08/30/17 [ History] Baclofen 10 mg GTUBE TID PRN #0 09/02/17 [Rx] LORazepam [Ativan] 0.5 mg PO Q6H PRN #60 tab 09/02/17 [Rx] Lactulose 30 ml GTUBE DAILY #0 09/02/17 [Rx] Ondansetron HCl [Zofran] 4 mg GTUBE Q6H PRN #0 09/02/17 [Rx] Acetaminophen/HYDROcodone [[place] 325-5 MG] 5 - 325 mg GTUBE Q4H PRN 09/07/17 [ History] Diclofenac Sodium [Voltaren] 50 mg PO BID PRN 09/07/17 [History] levoFLOXacin [Levaquin] 750 mg PO DAILY 09/07/17 [History] Docusate Sodium [Dulcolax Stool Softener] 10 mg PO DAILY PRN 09/12/17 [History] Polyethylene Glycol 3350 [MiraLAX] 17 gm PO DAILY 09/12/17 [History] Past Medical History HEENT History: Reports: Allergic Rhinitis Cardiovascular History: Reports: Arrhythmia, High Cholesterol, Hypertension, Other (See Below) Other Cardiovascular History: PSVT Respiratory History: Reports: Asthma, Other (See Below) Other Respiratory History: ALS Gastrointestinal History: Reports: Cirrhosis, Other (See Below) Other Gastrointestinal History: PEG tube Genitourinary History: Reports: Urinary Incontinence, Other (See Below) Other Genitourinary History: Indwelling catheter 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: Musculoskeletal History: Reports: Arthritis, Fracture Other Musculoskeletal History: avulsion fracture left ankle Neurological History: Reports: Other (See Below) Other Neuro History: ALS Psychiatric History: Reports: Anxiety, Depression Endocrine/Metabolic History: Reports: Diabetes, Type II Oncologic (Cancer) History: Reports: Breast - Infectious Disease History Infectious Disease History: Reports: Chicken Pox, Influenza, Measles - Past Surgical History HEENT Surgical History: Reports: LASIK, Other (See Below) GI Surgical History: Reports: Cholecystectomy Female Surgical History: Reports: Breast Reconstruction, Hysterectomy, Mastectomy Neurological Surgical History: Reports: C-Spine, Lumbar Spine Social & Family History - Family History Family Medical History: Noncontributory - Caffeine Use Caffeine Use: Reports: None Other Caffeine Use: pt reports that she used to drink one cup of coffee/day but now is not going to be able to she reports - Living Situation & Occupation Living situation: Reports: , Extended Care Facility Occupation: Unemployed ED ROS GENERAL - Review of Systems Review Of Systems: See Below Constitutional: Reports: Malaise, Weakness, Fatigue, Decreased Appetite ( History suggests chronic nausea.). Denies: Fever, Chills HEENT: Reports: Glasses, Other (Unable to swallow anymore due to ALS.) Respiratory: Reports: Shortness of Breath, Other (He was to have spit up of increased phlegm.) Cardiovascular: Reports: Chest Pain, Other. Denies: Blood Pressure Problem, Claudication, Lightheadedness Endocrine: Reports: Fatigue ( is bedridden.) GI/Abdominal: Reports: Abdominal Pain (Abdominal pain and she indicates left upper quadrant with associated nausea worsening with feedings. This is particular present since), Constipation ( G-tube placement.), Decreased Appetite , Nausea : Reports: Other (Chronic indwelling Rivera cavity) Musculoskeletal: Reports: Other Skin: Reports: No Symptoms Neurological: Reports: Dizziness, Weakness, Other (Her generalized weakness due to ALS. And is bed bound.). Denies: Confusion, Headache, Numbness (Vertigo symptoms like spinning sensation.), Syncope, Tingling Psychiatric: Reports: Anxiety (On Ativan chronically.) Immunologic: Reports: No Symptoms ED EXAM, GI/ABD - Physical Exam Exam: See Below Exam Limited By: Other (Patient is nonverbal due to ALS. She is able to write on a erasure board her symptoms of nausea and abdominal pain. Also feels she has an excessive amount of phlegm.) General Appearance: No Apparent Distress, Other (Afebrile.) Eyes: Bilateral: Normal Appearance (. No jaundice.) Throat/Mouth: Other Head: Atraumatic, Normocephalic (Tongue is dry and coated) Neck: Normal Inspection, Supple, Non-Tender, Full Range of Motion. No: Carotid Bruit, Lymphadenopathy (R), Tender Midline Respiratory/Chest: No Accessory Muscle Use, Respiratory Distress (Tachypnea at rest 22/m.), Decreased Breath Sounds (Decreased air entry bilaterally more so to the left lung base on the right. No adventitial sounds were identified in her upper lungs to suggest aspiration). No: Rales, Rhonchi, Wheezing Cardiovascular: Normal Peripheral Pulses, No Murmur, Tachycardia (Heart rate is 107 at rest suggesting some degree of volume depletion.) GI/Abdominal Exam: Soft (Very few bowel sounds evident on examination.), Non- Tender, Abnormal Bowel Sounds, Other (I believe I can palpate her left hemicolon. G-tube is in the left upper quadrant stoma appears to be normal. No signs of infection. There is a surrounding mound of fairly firm tissue or fluid under the G-tube that measures approximately 6-7 cm in diameter. This appears to be mild to moderately tender to palpation. There is no obvious leakage of Jevity from the wound.) Extremities: No Pedal Edema, Other. No: Normal Range of Motion, Non-Tender, Pedal Edema (Venous stasis dermatitis or discoloration particularly around both ankles bilaterally.) Neurological: Alert, Oriented, Normal Cognition (She can write her complaints. She understands commands. She just is not able to verbalize or speak. Can't swallow any more.) Psychiatric: Anxious Skin Exam: Warm, Dry, Intact, Normal Color, No Rash Course - Vital Signs Last Recorded V/S: Last Vital Signs Temp 36.4 C 09/12/17 21:05 Pulse 107 H 09/12/17 21:05 Resp 22 H 09/12/17 21:05 BP 132/48 L 09/12/17 21:05 Pulse Ox 91 L 09/12/17 21:05 - Orders/Labs/Meds Orders: Active Orders 24 hr Category Date Time Status Abdomen 1V Flat [CR] Stat Exams 09/12/17 21:07 Taken Chest 1V Frontal [CR] Stat Exams 09/12/17 21:08 Taken Chest Abdomen Pelvis w Cont [CT] Stat Exams 09/12/17 21:55 Taken URINALYSIS W/MICROSCOPIC [UA W/MICROSCOPIC] [URIN] Stat Lab 09/12/17 21:55 Ordered Dextrose 5%-0.9% NaCl [Dextrose 5%-Normal Saline] 1,000 Med 09/12/17 21:15 Active ml IV ASDIRECTED Dextrose 5%-0.9% NaCl with KCl [D5 NS with 20 mEq KCl] Med 09/13/17 01:00 Active 1,000 ml IV ASDIRECTED Sodium Chloride 0.9% [Saline Flush] Med 09/12/17 22:17 Active 10 ml FLUSH ONETIME PRN Medication Orders Dextrose/Sodium Chloride (Dextrose 5%-Normal Saline) 1,000 mls @ 500 mls/hr IV ASDIRECTED LOLIS Last Admin: 09/12/17 21:16 Dose: 500 mls/hr Potassium Chloride/Dextrose/Sod Cl (D5 Ns With 20 Meq Kcl) 1,000 mls @ 100 mls/ hr IV ASDIRECTED LOLIS Last Admin: 09/13/17 01:43 Dose: 100 mls/hr Sodium Chloride (Saline Flush) 10 ml FLUSH ONETIME PRN PRN Reason: IV FLUSH Last Admin: 09/12/17 22:29 Dose: 10 ml Labs: Laboratory Tests 09/12/17 09/12/17 09/12/17 Range/Units 21:11 21:11 21:11 WBC 5.24 (3.98-10.04) K/mm3 RBC 3.89 L (3.98-5.22) M/mm3 Hgb 12.6 (11.2-15.7) gm/L Hct 35.8 (34.1-44.9) % MCV 92.0 (79.4-94.8) fl MCH 32.4 H (25.6-32.2) pg MCHC 35.2 (32.2-35.5) g/dl RDW Std Deviation 44.7 (36.4-46.3) fL Plt Count 138 L (182-369) K/mm3 MPV 8.9 L (9.4-12.3) fl Neutrophils % (Manual) 69 H (40-60) % Band Neutrophils % 0 (0-10) % Lymphocytes % (Manual) 28 (20-40) % Atypical Lymphs % 0 % Monocytes % (Manual) 2 (2-10) % Eosinophils % (Manual) 1 (0.7-5.8) % Basophils % (Manual) 0 L (0.1-1.2) Platelet Estimate Adequate RBC Morph Comment Normal Sodium 140 (136-145) mEq/L Potassium 4.0 (3.5-5.1) mEq/L Chloride 102 (98-107) mEq/L Carbon Dioxide 29 (21-32) mEq/L Anion Gap 13.0 (5-15) BUN 14 (7-18) mg/dL Creatinine 0.6 (0.55-1.02) mg/dL Est Cr Clr Drug Dosing TNP Estimated GFR (MDRD) > 60 (>60) mL/min BUN/Creatinine Ratio 23.3 H (14-18) Glucose 252 H (80-115) mg/dL Calcium 9.7 (8.5-10.1) mg/dL Magnesium 1.5 L (1.8-2.4) mg/dl Total Bilirubin 1.7 H (0.2-1.0) mg/dL GGT 111 H (5-55) U/L AST 59 H (15-37) U/L ALT 57 (14-59) U/L Alkaline Phosphatase 187 H (46-116) U/L C-Reactive Protein 1.4 H* (<1.0) mg/dL Total Protein 7.1 (6.4-8.2) g/dl Albumin 3.0 L (3.4-5.0) g/dl Globulin 4.1 gm/dL Albumin/Globulin Ratio 0.7 L (1-2) Lipase 135 (73-393) U/L Urine Color (Yellow) Urine Appearance (Clear) Urine pH (5.0-8.0) Ur Specific [place] (1.005-1.030) Urine Protein (Negative) Urine Glucose (UA) (Negative) Urine Ketones (Negative) Urine Occult Blood (Negative) Urine Nitrite (Negative) Urine Bilirubin (Negative) Urine Urobilinogen (0.2-1.0) Ur Leukocyte Esterase (Negative) Urine RBC (0-5) /hpf Urine WBC (0-5) /hpf Ur Epithelial Cells (0-5) /hpf Urine Bacteria (FEW) /hpf Urine Mucus (FEW) /hpf 09/12/17 Range/Units 21:55 WBC (3.98-10.04) K/mm3 RBC (3.98-5.22) M/mm3 Hgb (11.2-15.7) gm/L Hct (34.1-44.9) % MCV (79.4-94.8) fl MCH (25.6-32.2) pg MCHC (32.2-35.5) g/dl RDW Std Deviation (36.4-46.3) fL Plt Count (182-369) K/mm3 MPV (9.4-12.3) fl Neutrophils % (Manual) (40-60) % Band Neutrophils % (0-10) % Lymphocytes % (Manual) (20-40) % Atypical Lymphs % % Monocytes % (Manual) (2-10) % Eosinophils % (Manual) (0.7-5.8) % Basophils % (Manual) (0.1-1.2) Platelet Estimate RBC Morph Comment Sodium (136-145) mEq/L Potassium (3.5-5.1) mEq/L Chloride (98-107) mEq/L Carbon Dioxide (21-32) mEq/L Anion Gap (5-15) BUN (7-18) mg/dL Creatinine (0.55-1.02) mg/dL Est Cr Clr Drug Dosing Estimated GFR (MDRD) (>60) mL/min BUN/Creatinine Ratio (14-18) Glucose (80-115) mg/dL Calcium (8.5-10.1) mg/dL Magnesium (1.8-2.4) mg/dl Total Bilirubin (0.2-1.0) mg/dL GGT (5-55) U/L AST (15-37) U/L ALT (14-59) U/L Alkaline Phosphatase (46-116) U/L C-Reactive Protein (<1.0) mg/dL Total Protein (6.4-8.2) g/dl Albumin (3.4-5.0) g/dl Globulin gm/dL Albumin/Globulin Ratio (1-2) Lipase (73-393) U/L Urine Color Yellow (Yellow) Urine Appearance Clear (Clear) Urine pH 7.0 (5.0-8.0) Ur Specific [place] 1.025 (1.005-1.030) Urine Protein Negative (Negative) Urine Glucose (UA) Trace H (Negative) Urine Ketones Negative (Negative) Urine Occult Blood 3+ H (Negative) Urine Nitrite Negative (Negative) Urine Bilirubin Negative (Negative) Urine Urobilinogen >=8.0 H (0.2-1.0) Ur Leukocyte Esterase Negative (Negative) Urine RBC 50-75 H (0-5) /hpf Urine WBC 0-5 (0-5) /hpf Ur Epithelial Cells 0-5 (0-5) /hpf Urine Bacteria Few (FEW) /hpf Urine Mucus Not seen (FEW) /hpf Meds: Medications Generic Name Dose Route Start Last Admin Trade Name Freq PRN Reason Stop Dose Admin Dextrose/Sodium Chloride 1,000 mls @ 500 mls/hr 09/12/17 21:15 09/12/17 21:16 Dextrose 5%-Normal Saline IV 500 mls/hr ASDIRECTED LOLIS Administration Potassium Chloride/Dextrose/Sod Cl 1,000 mls @ 100 mls/hr 09/13/17 01:00 01:43 D5 Ns With 20 Meq Kcl IV 100 mls/hr ASDIRECTED LOLIS Administration Sodium Chloride 10 ml 09/12/17 22:17 09/12/17 22:29 Saline Flush FLUSH 10 ml ONETIME PRN Administration IV FLUSH Discontinued Medications Generic Name Dose Route Start Last Admin Trade Name Freq PRN Reason Stop Dose Admin Hydromorphone HCl 0.5 mg 09/12/17 21:34 09/12/17 21:41 Dilaudid IVPUSH 09/12/17 21:35 0.5 mg ONETIME ONE Administration Iopamidol 150 ml 09/12/17 22:17 09/12/17 22:29 Isovue-300 (61%) IVPUSH 09/12/17 22:18 110 ml ONETIME ONE Administration Lorazepam 0.5 mg 09/12/17 21:33 09/12/17 21:41 Ativan IVPUSH 09/12/17 21:34 0.5 mg ONETIME ONE Administration Lorazepam 0.5 mg 09/13/17 04:59 09/13/17 05:07 Ativan IVPUSH 09/13/17 05:00 0.5 mg ONETIME ONE Administration Ondansetron HCl 4 mg 09/12/17 21:07 09/12/17 21:16 Zofran IVPUSH 09/12/17 21:08 4 mg ONETIME ONE Administration - Radiology Interpretation Free Text/Narrative:: 61-year-old female presents to the ED with chronic ALS that has placed her in the [facility] over the last several months. She recently got some bad she could no longer swallow and the PEG tube was placed in her left upper quadrant. She's getting Jevity feedings but has not tolerated much in the way of feedings since the tube was placed. She's also had problems with constipation. She hasn' t had hardly anything to eat at all today. They tried Jevity 100 mils tonight and she's read them stop the infusion because of increased pain and nausea. We are sorting out her med list at present as many of her medications have been recently discontinued. Routine labs to be collected to rule out a metabolic problem. Also serum lipase. The be an x-ray of her abdomen and x-ray of her chest to be done. IV will be D5 normal saline at 500 mils per hour. Initially given Zofran 4 mg IV for nausea relief. Socially she is asked for Ativan which she takes 0.5 mg every 6 hours for any will be given IV and this dose. Also requesting something for pain and given Dilaudid 0.5 mg IV for pain relief. She has a chronic indwelling Rivera catheter which could be making her sick as well. Urinalysis to be obtained. - Re-Assessments/Exams Free Text/Narrative Re-Assessment/Exam: 09/12/17 21:48 one view chest x-ray reveals a soft tissue density in a triangular pattern in the right lung field. Unclear what this is. Xray has her rotated to the right side. KUB of the abdomen reveals no signs of bowel obstruction. There is increased stool primarily in the rectal vault. Will await her labs and decide whether we can CT her chest with IV contrast. I would CT her chest abdomen and pelvis. 09/12/17 21:54 Labs are back. White count is normal at 5.24 with 69% neutrophils no bands reported. Hemoglobin is 12.6 with hematocrit of 35.8. Platelet count 138,000. Sodium is 140 with potassium of 4.0. Toward 102 with a bicarbonate 29. Anion gap is 13.0. BUN is 14. Creatinine is 0.6. Glucose is elevated at 252. Calcium is 9.7. Magnesium low at 1.5. Bilirubin 1.7. AST is 59 ALT of 57 alkaline phosphatase stays mildly elevated at 187. C-reactive protein 1.4. Lipase is normal 135. I will order a GGT to make sure she does not have any biliary tree obstruction. Urinalysis is pending. 09/12/17 22:42 GGT is mildly elevated at 111. This is about double normal. The urinalysis obtained after clamping her catheter for a period of time reveals 3+ hematuria and 50-75 RBCs per high power field suggesting possibility of a renal stone. She is awaiting CT exam. 09/12/17 23:40: CT scan chest abdomen and pelvis reveals I believe a significant atelectasis at the base of the right lung field. There is a consolidation there but she has a normal white count and no fever that would suggest a pneumonia. The right hilum a diaphragm is elevated. Central pulmonary arterial tree is normal in caliber and free of thrombus. There are postoperative changes of the spine there are moderate degenerative changes throughout the thoracic spine. There is mild cardiomegaly. There is no pericardial effusions. Coarse is at high risk of pneumonia due to ALS. CT of the abdomen reveals the liver to be cirrhotic and small in size. The spleen is enlarged suggestive of portal hypertension. No ascites or free fluid is evident in the abdomen. The G-tube that was placed 12 days ago appears to be in the abdominal wall and not in the stomach. This would explain why she gets so much pain when any infusions or attempted using this. I suspect it may have been in place initially but have migrated out of its initially placed position since the patient remains well hydrated and did not seem to have too much problems with it initially. The pancreatic parenchyma is normal in bulk and sharply marginated with no signs of pancreatitis the ducts are not dilated. Gallbladder surgically absent. There is a small nonobstructing stone in the left renal tissue. No hydronephrosis or asymmetric perinephric stranding noted. There are no dilated or thickened small bowel loops gas and stool are present throughout the colon and particularly the rectal vault. Therefore appears that she has malposition of her G-tube which I will pull out. However I will have to find a surgeon to replace the G-tube either here or in [place]. She is a high anesthetic risk due to her ALS. Family is coming back to discuss options. 09/13/17 00:15: Removed the G-tube without any major difficulties. Easily see the spongiform component of the G-tube just under the skin. The anastomosis was filled with Bactroban ointment and covered with a bandage. 09/13/17 00:56 I did have a discussion with the family as they return to the ED. They are in favor of transferring her to [facility] for definitive replacement of PEG tube. She is in no distress at this time and therefore will can speak with a surgeon later this morning with a view to transfer to [place] for definitive management. She is a high anesthetic risk due to ALS. I will speak with the surgeon about 0630 hrs. are time. This morning. She'll stay in the ED overnight. IV will be D5 normal saline with 20 mg of case seal per liter to run at 100 mils per hour. 09/13/17 04:59 patient remains quite restless and somewhat agitated. She's had very little sleep. She did have a bowel movement while in the ED. She is unable to rest comfortably due to the nature of our bands. Even with a waffle mattress underneath her she still very uncomfortable. Will give her repeat Ativan 0.5 mg IV in hopes that she may be able to get some sleep. 09/13/17 07:37 [address] Wilder rougher helper correction officer [facility] who can facilitate reinsertion of her PEG tube in . She will therefore be transferred by ground ambulance to that facility for the procedure. Note she did have a prolonged recovery phase after anesthesia on last occasion likely due to her amyotrophic lateral sclerosis. Tentatively she could be returned to [facility] once the PEG tube has been reinserted to restart her tube feedings. CODE STATUS is listed as DO NOT RESUSCITATE. Family is here and appraised of the plan to have the tube replaced. They will travel to [place] as well. Departure - Departure Time of Disposition: 07:39 Disposition: DC/Tfer to Acute Hospital 02 Condition: Poor Clinical Impression: Amyotrophic lateral sclerosis (ALS), Malfunction of percutaneous endoscopic gastrostomy (PEG) tube - Discharge Information *PRESCRIPTION DRUG MONITORING PROGRAM REVIEWED*: Not Applicable *COPY OF PRESCRIPTION DRUG MONITORING REPORT IN PATIENT BENNIE: Not Applicable Referrals: Patrice Miranda MD [Primary Care Provider] - Forms: ED Department Discharge Additional Instructions: Travel by ambulance to [facility] in [place] for potential reinsertion of PEG tube to allow feedings. Dr. Wilder --rougher helper has accepted care. - My Orders Last 24 Hours: My Active Orders 09/12/17 21:07 Abdomen 1V Flat [CR] Stat 09/12/17 21:08 Chest 1V Frontal [CR] Stat 09/12/17 21:15 Dextrose 5%-0.9% NaCl [Dextrose 5%-Normal Saline] 1,000 ml IV ASDIRECTED 09/12/17 21:55 Chest Abdomen Pelvis w Cont [CT] Stat URINALYSIS W/MICROSCOPIC [UA W/MICROSCOPIC] [URIN] Stat 09/12/17 22:17 Sodium Chloride 0.9% [Saline Flush] 10 ml FLUSH ONETIME PRN 09/13/17 01:00 Dextrose 5%-0.9% NaCl with KCl [D5 NS with 20 mEq KCl] 1,000 ml IV ASDIRECTED - Assessment/Plan Last 24 Hours: My Active Orders 09/12/17 21:07 Abdomen 1V Flat [CR] Stat 09/12/17 21:08 Chest 1V Frontal [CR] Stat 09/12/17 21:15 Dextrose 5%-0.9% NaCl [Dextrose 5%-Normal Saline] 1,000 ml IV ASDIRECTED 09/12/17 21:55 Chest Abdomen Pelvis w Cont [CT] Stat URINALYSIS W/MICROSCOPIC [UA W/MICROSCOPIC] [URIN] Stat 09/12/17 22:17 Sodium Chloride 0.9% [Saline Flush] 10 ml FLUSH ONETIME PRN 09/13/17 01:00 Dextrose 5%-0.9% NaCl with KCl [D5 NS with 20 mEq KCl] 1,000 ml IV ASDIRECTED
[2017-09-12] MEDS ORDERED: Dextrose 5%-0.9% NaCl 1,000 ML IV SCH (21:15)
[2017-09-12] MEDS ORDERED: LORazepam 2 MG/ML SDV IVPUSH ONE (21:33)
[2017-09-12] MEDS ORDERED: HYDROmorphone 0.5 MG/0.5 ML SYRINGE IVPUSH ONE (21:34)
[2017-09-12] MEDS ORDERED: Iopamidol 612 MG/ML 150 ML Bottle IVPUSH ONE (22:17)
[2017-09-12] MEDS ORDERED: Sodium Chloride 0.9% 10 ML Syringe FLUSH PRN (22:17)
[2017-09-13] MEDS ORDERED: Dextrose 5%-0.9% NaCl with KCl 1,000 ML IV SCH (01:00)
[2017-09-13] MEDS ORDERED: LORazepam 2 MG/ML SDV IVPUSH ONE (04:59)
[2017-09-13] MEDS ORDERED: HYDROmorphone 0.5 MG/0.5 ML SYRINGE IVPUSH ONE (07:46)
--- NOTE | 2017-09-13 18:32 | CR ---
Chest: Portable view of the chest was obtained. Comparison: Prior chest x-ray of 09/02/17. Elevated right hemidiaphragm is seen. Atelectasis is felt to be present within both lung bases. Lungs otherwise are clear. Multiple surgical clips are seen within the right abdomen as well as within the right axillary region. Heart does not appear enlarged. Previous cervical spine surgery is noted. Impression: 1. Presumed bibasilar atelectasis. Elevated right hemidiaphragm. 2. Other incidental findings. Diagnostic code #2
--- NOTE | 2017-09-13 18:32 | CT ---
CT chest Technique: Multiple axial sections were obtained from above the dome of the diaphragm inferiorly through the lung bases. Intravenous contrast was utilized. Mediastinum and hilar regions appear unremarkable. No pericardial effusion is seen. Heart appears slightly enlarged. Bilateral breast prosthesis are noted. Right hemidiaphragm is elevated. Increased density is noted within both lung bases most likely representing atelectasis although difficult to exclude pneumonia if patient has correlating infectious symptoms. Lungs otherwise are clear. Bone window settings were reviewed which show several old healed left-sided rib fractures. Scattered degenerative endplate spurring is noted within the spine. Prior cervical spine surgery is noted. Impression: 1. Increased density within both lung bases most likely representing atelectasis although difficult to completely exclude pneumonia if patient has any infectious symptoms. 2. Elevated right hemidiaphragm. 3. Other incidental findings. Diagnostic code #3 I agree with preliminary report issued by [facility] ([facility] report finalized on 09/13/17, 12:28 AM Central Time) CT abdomen and pelvis Technique: Multiple axial sections were obtained from above the dome of the diaphragm inferiorly through the pubic symphysis. Intravenous contrast was not utilized. Oral contrast has been given. Findings: Liver shows minimal nodularity noted within the liver surface. Findings raise the possibility of cirrhosis. Questionable varices are noted within the upper abdomen. Spleen is mildly enlarged at 14.6 cm. Kidneys show symmetric contrast enhancement without hydronephrosis or mass. Small nonobstructing calculus is seen within the left kidney measuring 3.3 mm. Gastrostomy tube is seen which lies within the superficial soft tissues and not within the stomach. Adrenal glands show no nodule. Pancreas is within normal limits. Aorta shows no aneurysmal dilatation with mild atherosclerotic change. No retroperitoneal adenopathy is seen. Questionable bowel wall thickening within the rectum. Appendix is not definitely seen. Mild increased stool is seen throughout the colon. Delayed images show a Rivera catheter within the bladder. Contrast noted within the bladder on delayed images. Bone window settings were reviewed which show degenerative apophyseal changes at L4-L5 with mild spondylolisthesis. Scattered endplate osteophytes are seen. Prior left sided mini laminectomy noted at L4-L5. Impression: 1. Findings suspicious but not conclusive for cirrhosis. Spleen is enlarged. Questionable mild varicosities within the upper abdomen. 2. Slight increased stool within the colon. 3. Nonspecific wall thickening appears to be present within the rectum. 4. Malpositioned gastrostomy tube which lies within the anterior subcutaneous tissues and needs to be repositioned. 5. Other incidental findings as noted above. Diagnostic code #5 I agree with preliminary report issued by [facility] ([facility] report finalized on 09/13/17, 12:28 AM Central Time)
--- NOTE | 2017-09-13 18:32 | CR ---
Abdomen: Supine view of the abdomen was obtained. Comparison: Prior abdominal x-ray of 09/07/17. Surgical clips are seen from prior cholecystectomy. Gastrostomy tube is noted. Bowel gas pattern is normal. Calcifications are seen within the pelvis compatible with phleboliths. Surgical clips are seen within the right lower abdomen. Impression: 1. Incidental findings. Nothing acute is seen. Diagnostic code #2
== END 2017-09-13 08:25 ==
LOC: JD.ED 20:44
DX: G12.21 Amyotrophic lateral sclerosis (principal); K94.23 Gastrostomy malfunction; E78.00 Pure hypercholesterolemia, unspecified; I10 Essential (primary) hypertension; J45.909 Unspecified asthma, uncomplicated; F41.9 Anxiety disorder, unspecified; F32.9 Major depressive disorder, single episode, unspecified; E11.9 Type 2 diabetes mellitus without complications; Z79.899 Other long term (current) drug therapy; Z79.4 Long term (current) use of insulin
CPT/HCPCS: 36415; 71045; 71260; 74018; 74177; 80053; 81001; 82977; 83690; 83735; 85007; 85027; 86140; 96361; 96374; 96375; 96376; 99285; J1170; J2060; J2405; J3480; J7042; J7050; Q9967

== ENCOUNTER 2017-09-16 00:37 | Emergency (ER) | payer BC, OTHER ==
--- NOTE | 2017-09-16 01:12 | EDM.PDOC ---
ED HPI GENERAL MEDICAL PROBLEM - General Chief Complaint: Abdominal Pain Stated Complaint: [facility] Time Seen by Provider: 09/16/17 00:56 Source of Information: Reports: Patient, Group Home Records History Limitations: Reports: Physical Impairment (Expressive aphasia) - History of Present Illness INITIAL COMMENTS - FREE TEXT/NARRATIVE: The patient has a history of ALS and while she is able to write, has an expressive aphasia and is unable to speak. Medical records indicate that the patient was seen in this ED this past 09/12/2017 for difficulty with a recently placed PEG tube. According to the medical record, the patient had a PEG tube placed at [facility] on or about 08/31/2017 secondary to her inability to swallow. The PEG tube was accidentally yanked on at [facility] on or about 09/07/2017, and since then, she was having pain any time attempts were made to feed her through the PEG tube. A CT scan was performed in this ED on 09/12/2017, finding that the tube was malpositioned in the abdominal wall. The PEG tube was removed, and the patient ultimately transferred back to [facility]. It is my understanding that the patient had a new PEG tube placed in a different site on Friday, 09/13, per the [employer] [facility] Dr. Amezquita. The patient was returned to [facility] on or about 09/14/2017. The patient is now brought back to the ED from [facility], with information that the PEG was working fine, with no problems up through 17:00 this evening, however, at 22:00, the [facility] staff found about 5 mL of blood in the aspirate of the gastric contents. Here in the ED, we find some dried blood around the PEG site, and clear red fluid within the PEG tube. This aspirate was Hemoccult tested, and found to be positive. - Related Data Allergies Allergy/AdvReac Type Severity Reaction Status Date / Time No Known Allergies Allergy Verified 09/12/17 21:29 Home Meds: Home Meds Albuterol [Ventolin HFA] 2 puff INH QID PRN 06/08/17 [History] Hyoscyamine Sulfate [Levsin-Sl] 0.125 mg PO Q4H PRN 08/30/17 [History] Insulin Glargine,Hum.Rec.Anlog [Lantus Solostar] 30 units SQ BID 08/30/17 [ History] Baclofen 10 mg GTUBE TID PRN #0 09/02/17 [Rx] LORazepam [Ativan] 0.5 mg PO Q6H PRN #60 tab 09/02/17 [Rx] Lactulose 30 ml GTUBE DAILY #0 09/02/17 [Rx] Ondansetron HCl [Zofran] 4 mg GTUBE Q6H PRN #0 09/02/17 [Rx] Acetaminophen/HYDROcodone [Flushing 325-5 MG] 5 - 325 mg GTUBE Q4H PRN 09/07/17 [ History] Diclofenac Sodium [Voltaren] 50 mg PO BID PRN 09/07/17 [History] levoFLOXacin [Levaquin] 250 mg PO DAILY 09/07/17 [History] Docusate Sodium [Dulcolax Stool Softener] 10 mg PO DAILY PRN 09/12/17 [History] Polyethylene Glycol 3350 [MiraLAX] 17 gm PO DAILY 09/12/17 [History] Past Medical History HEENT History: Reports: Allergic Rhinitis Cardiovascular History: Reports: Arrhythmia (SVT), High Cholesterol, Hypertension Gastrointestinal History: Reports: Cirrhosis (with portal hypertension) Genitourinary History: Reports: Urinary Incontinence (Chronic indwelling Rivera catheter) [employer] History: Reports: Musculoskeletal History: Reports: Arthritis, Fracture (avulsion fracture left ankle) Neurological History: Reports: Other (See Below) (Amylotrophic lateral sclerosis ) Psychiatric History: Reports: Anxiety, Depression, PTSD Endocrine/Metabolic History: Reports: Diabetes, Type II Oncologic (Cancer) History: Reports: Breast (right) - Infectious Disease History Infectious Disease History: Reports: Chicken Pox, Influenza, Measles - Past Surgical History HEENT Surgical History: Reports: LASIK (bilateral), Other (See Below) (Left stapedectomy) GI Surgical History: Reports: Cholecystectomy Female Surgical History: Reports: Breast Reconstruction (bilateral), Hysterectomy Neurological Surgical History: Reports: C-Spine (ACDF), Lumbar Spine (L3-S1 laminectomy) Oncologic Surgical History: Reports: Mastectomy (bilateral) Social & Family History - Family History Family Medical History: Noncontributory - Tobacco Use Smoking Status *Q: Never Smoker - Caffeine Use Caffeine Use: Reports: None Other Caffeine Use: pt reports that she used to drink one cup of coffee/day but now is not going to be able to she reports - Alcohol Use Alcohol Use History: No - Recreational Drug Use Recreational Drug Use: No - Living Situation & Occupation Living situation: Reports: , Extended Care Facility ([facility]) Occupation: Disabled ED ROS GENERAL - Review of Systems Review Of Systems: ROS reveals no pertinent complaints other than HPI. ED EXAM, GI/ABD - Physical Exam Exam: See Below Exam Limited By: No Limitations General Appearance: Alert, WD/WN, No Apparent Distress Eyes: Bilateral: Normal Appearance, EOMI Ears: Normal External Exam, Hearing Grossly Normal Nose: Normal Inspection, No Blood Throat/Mouth: Normal Inspection, Normal Lips, Normal Voice, No Airway Compromise Head: Atraumatic, Normocephalic Neck: Normal Inspection, Full Range of Motion Respiratory/Chest: No Respiratory Distress, Lungs Clear, Normal Breath Sounds, No Accessory Muscle Use Cardiovascular: Normal Peripheral Pulses, Regular Rate, Rhythm, No Gallop, No JVD, No Murmur, No Rub GI/Abdominal Exam: Normal Bowel Sounds, Soft, No Organomegaly, No Distention, No Abnormal Bruit, No Mass, Tender (Generalized, non-focal), Other (Dried blood noted around the PEG site in the left upper abdomen. Clear red fluid within the PEG tube. Prior PEG tube site to the left of the current PEG tube is clean and dry.) (Female) Exam: Deferred Rectal (Female) Exam: Deferred Back Exam: Normal Inspection, Full Range of Motion, NT Extremities: Normal Capillary Refill Neurological: Alert, Other (The patient is able to use her hands to indicate what she wants, and she is able to mouth words, although is nonvocal.) Psychiatric: Other (Unable to assess) Skin Exam: Warm, Dry, Intact, Normal Color, No Rash Course - Vital Signs Last Recorded V/S: Last Vital Signs Temp 36.6 C 09/16/17 00:38 Pulse 83 09/16/17 00:38 Resp 16 09/16/17 00:38 BP 133/66 09/16/17 00:38 Pulse Ox 98 09/16/17 00:38 - Re-Assessments/Exams Free Text/Narrative Re-Assessment/Exam: 07/24/18 01:30 Case discussed with [facility] at 01:13. Case then discussed with Dr. Davis, Hospitalist at [facility], at 01:27. He accepts the patient for transfer. Departure - Departure Time of Disposition: 01:31 Disposition: DC/Tfer to Acute Hospital 02 Condition: Good Clinical Impression: Gastric bleed - Discharge Information *PRESCRIPTION DRUG MONITORING PROGRAM REVIEWED*: Not Applicable *COPY OF PRESCRIPTION DRUG MONITORING REPORT IN PATIENT BENNIE: Not Applicable
[2017-09-16] MEDS ORDERED: HYDROmorphone 0.5 MG/0.5 ML SYRINGE IVPUSH ONE (01:54)
== END 2017-09-16 02:17 ==
LOC: JD.ED 00:37
DX: K92.2 Gastrointestinal hemorrhage, unspecified (principal); I10 Essential (primary) hypertension; E11.9 Type 2 diabetes mellitus without complications; Z79.899 Other long term (current) drug therapy
CPT/HCPCS: 96374; 99284; J1170; 99285